=== PATIENT | female | born 1965 | race Caucasian/White ===

== ENCOUNTER → 2016-04-27 | Outpatient (CLI) | payer OTHER ==
--- NOTE | 2016-04-27 10:03 | US ---
EXAMINATION TYPE: US thyroid st tissue head/neck DATE OF EXAM: 04/27/2016 8:53 AM COMPARISON: prior 4-16 us CLINICAL HISTORY: follow up on known single left nodule; pt states prior fna of nodule as benign. GLAND SIZE: Right Lobe: 2.5 x 1.0 x 0.8cm Overall Parenchyma: somewhat heterogenous Left Lobe: 2.8 x 0.8 x 0.8cm Overall Parenchyma: somewhat heterogeneous Isthmus Thickness: 0.3cm NODULES RIGHT: # of nodules measured on right: 0 LEFT: # of nodules measured on left: 1 1. 1.1 x 0.4 x 0.8cm mixed solid nodule at the lower pole with well-defined margins. This nodule i s wider than tall and shows no intranodular vascularity. Prior size: 1.2 x 0.6 x 0.5 cm ISTHMUS: # of nodules measured in the isthmus: 0 IMPRESSION: Bilateral neck scanned, no abnormal lymphadenopathy noted. small lobes, single nodule SONOGRAPHIC PATTERNS, ESTIMATED MALIGNANCY RISK AND FNA GUIDANCE FOR THYROID NODULES Sonographic Pattern: Benign Ultrasound Features: Purely Cystic Nodules (No Solid Component) Estimated Risk Of Malignancy, %: <1 FNA Size Cutoff (Largest Dimension): No Biopsy Sonographic Pattern: Very Low Suspicion Ultrasound Features: Spongiform Or Partially Cystic Nodules Without Any Of The Sonographic Features Described In Low, Inte rmediate Or High Suspicion Patterns. Estimated Risk Of Malignancy, %: <3 FNA Size Cutoff (Largest Dimension): Recommend FNA At > 2cm Or Observation Without FNA Sonographic Pattern: Low Suspicion Ultrasound Features: Isoechoic Or Hyperechoic Solid Nodule, Or Partially Cystic Nodule With Eccentric Solid Areas, Without Microcalcification, Irregular Margin Or Ete, Or Taller Than Wide Shape. Estimated Risk Of Malignancy, %: 5-10 FNA Size Cutoff (Largest Dimension): Recommend FNA At > 1.5cm Sonographic Pattern: Intermediate Suspicion Ultrasound Features: Hypoechoic Solid Nodule With Smooth Margins Without Microcalcifications, Ete, Or Taller Than Wide Sha pe. Estimated Risk Of Malignancy, %: 10-20 FNA Size Cutoff (Largest Dimension): Recommend FNA At > 1cm Sonographic Pattern: High Suspicion Ultrasound Features: Solid Hypoechoic Nodule Or Solid Hypoechoic Component Of A Partially Cystic Nodule With One Or More O f The Following Features: Irregular Margins (Infiltrative, Microlobulated), Microcalcifications, Tall er Than Wide Shape, Rim Calcifications With Small Extrusive Soft Tissue Component, Evidence Of Ete Estimated Risk Of Malignancy, %: >70-90 FNA Size Cutoff (Largest Dimension): Recommend FNA At > 1cm
--- NOTE | 2016-04-27 10:50 | XR ---
EXAMINATION TYPE: XR bone survey complete DATE OF EXAM: 04/27/2016 9:38 AM COMPARISON: NONE TECHNIQUE: 17 views. HISTORY: 51-year-old female monoclonal gammopathy. FINDINGS: Bony calvarium : 2 views of the bony calvarium demonstrates no punched out lytic lesions. The mandibl e appears clear as well. CHEST: Clear lungs and normal heart size. No discrete rib lesion seen. The clavicles and scapula appe ar clear. Spine: Two views of the cervical, thoracic and lumbar spines are submitted. Reversal of the normal c ervical lordosis could be positional or due to muscle spasm. Mild spondylotic changes noted. For the thoracic spine, there are 12 rib bearing thoracic vertebral bodies and all pedicles are visualized. For the lumbar spine, there are 5 lumbar type vertebral bodies. Vertebral body heights are preserved and alignment is maintained in both the thoracic and lumbar spine. No suspicious bony lesion seen. PELVIS: Single view of the pelvis demonstrates bone island in the superior left ischial ramus, osteit is pubis, bone island in both femoral necks, and a tubal ligation clip on the left. No suspicious lyt ic lesion. UPPER EXTREMITIES: Two views of the upper extremities showed no suspicious punched out lytic lesion. LOWER EXTREMITIES: 2 views of the lower extremities show no suspicious punched out lytic lesion. IMPRESSION: No suspicious lytic lesion to suggest multiple myeloma.
== END | disposition home or self-care (01) ==
LOC: RADUSWWP 08:31
PROVIDERS: ATTEND Internal Medicine Endocrinology, Diabetes & Metabolism
DX: D47.2 Monoclonal gammopathy (principal); E03.9 Hypothyroidism, unspecified; E78.00 Pure hypercholesterolemia, unspecified; I80.9 Phlebitis and thrombophlebitis of unspecified site; E04.1 Nontoxic single thyroid nodule
CPT/HCPCS: 76536; 77075

== ENCOUNTER → 2016-05-22 | Outpatient (CLI) | payer OTHER ==
--- NOTE | 2016-05-22 12:29 | NM ---
EXAMINATION TYPE: NM bone 3 phase, distal lower extremities. DATE OF EXAM: 05/22/2016 11:51 AM COMPARISON: NONE HISTORY: 51-year-old female complex regional pain syndrome left foot Triple phase bone scintigraphy was performed the bilateral distal lower extremities following the inj ection of27.0 mCi Tc 99m MDP. Immediate flow (anterior) and pool (anterior and posterior) images fol lowed by 4 hours post injection images (multiple projections) were acquired. FINDINGS: The may be subtle increased flow activity to the left foot. There is patchy increased pool activity w ithin the left midfoot and hindfoot and focal increased tracer activity in the same areas on delayed images. IMPRESSION: Increased activity in the left midfoot and hindfoot on at least 2 phases and likely also subtly incre ased to the left foot on the early flow images. Complex regional pain syndrome involving the left rashard t is not excluded on the basis of this exam.
== END | disposition home or self-care (01) ==
LOC: RADNMMAIN 07:13
PROVIDERS: ATTEND Podiatrist
DX: G90.522 Complex regional pain syndrome I of left lower limb (principal)
CPT/HCPCS: 78315; A9503

== ENCOUNTER → 2016-06-19 | Outpatient (CLI) | payer OTHER ==
--- NOTE | 2016-06-19 09:00 | US ---
EXAMINATION TYPE: US carotid duplex BILAT DATE OF EXAM: 06/19/2016 8:29 AM COMPARISON: NONE CLINICAL HISTORY: R55 syncope. Dizziness, fainting spells EXAM MEASUREMENTS: RIGHT: Peak Systolic Velocity (PSV) cm/sec ----- Right CCA: 117.7 ----- Right ICA: 114.5 ----- Right ECA: 86.6 ICA/CCA ratio: 1.0 RIGHT: End Diastole cm/sec ----- Right CCA: 45.1 ----- Right ICA: 43.4 ----- Right ECA: 19.3 LEFT: Peak Systolic Velocity (PSV) cm/sec ----- Left CCA: 137.1 ----- Left ICA: 131.8 ----- Left ECA: 122.4 ICA/CCA ratio: 1.0 LEFT: End Diastole cm/sec ----- Left CCA: 41.8 ----- Left ICA: 38.1 ----- Left ECA: 29.2 VERTEBRALS (direction of flow): Right Vertebral: Antegrade Left Vertebral: Antegrade TECHNOLOGIST IMPRESSION: No plaque or significant stenosis seen. Left CCA thickened schuster. Slightly elevated Mid and Distal CCA. Slightly elevated bulb. Mild intimal hyperplasia seen at right carotid bulb. No significant focal plaque is seen in either ca rotid bulb. Increased peak systolic velocities in bilateral common carotid arteries raises concern fo r underlying hypertension. Clinical correlation advised. No significant increased velocity in either internal carotid artery is seen accounting for above. IMPRESSION: No hemolytic significant stenosis is seen in either internal carotid artery. Criteria for Assigning % of Stenosis / Diameter reduction (Estimation based on the indirect measurements of the internal carotid artery velocities (ICA PSV). 2. Less than 50% stenosis=ICA PSV < 125 cm/s: ratio < 2.0: ICA EDV<40 cm/s.
[2016-06-19 10:20] LABS: CH 30.8; CHCM 33.4; HCT 41.4 % (34.0-46.0); HDW 2.46; HGB 14.3 gm/dL (11.4-16.0); MCH 32.1 pg (25.0-35.0); MCHC 34.6 g/dL (31.0-37.0); MCV 92.7 fL (80.0-100.0); Mean Platelet Volume 8.5; RBC 4.46 m/uL (3.80-5.40); RDW 13.4 % (11.5-15.5); WBC 7.2 k/uL (3.8-10.6)
[2016-06-19 10:56] LABS: ALT 21 U/L (9-52); AST 23 U/L (14-36); Alkaline Phosphatase 56 U/L (38-126); Anion Gap 9 mmol/L; Blood Urea Nitrogen 12 mg/dL (7-17); Calcium 9.7 mg/dL (8.4-10.2); Carbon Dioxide 25 mmol/L (22-30); Chloride 105 mmol/L (98-107); Glucose 87 mg/dL (74-99); Non-African American GFR(MDRD) >60 (>60 ml/min/1.73 sqM); Potassium 4.6 mmol/L (3.5-5.1); Sodium 139 mmol/L (137-145); Total Bilirubin 0.7 mg/dL (0.2-1.3); Total Protein 7.1 g/dL (6.3-8.2)
[2016-06-19 14:18] LABS: Partial Thromboplastin Time 25.5 sec (22.0-30.0); Prothrombin Time 10.5 sec (9.0-12.0)
[2016-06-19 14:45] LABS: Nucleated Red Blood Cells 0 /100 WBC (0-0); Polychromasia Present; Total Cells Counted 100
--- NOTE | 2016-06-20 13:13 | MR ---
MRI of the brain with and without contrast HISTORY: Headaches. TECHNIQUE: T1-weighted sagittal, T2, FLAIR, and diffusion axial, postcontrast T1 axial and coronal vi ews of the brain are submitted. CONTRAST: 20 mL MultiHance FINDINGS: There is no evidence of acute ischemia. The ventricles, basal cisterns, and sulci overlying the co nvexities are consistent with the patient's age. There is no mass effect or enhancing mass. Craniocervical junction maintained. Partially empty sella turcica noted. No evidence of cerebellopont ine angle mass. There is a prominent CSF fluid collection anterior temporal fossa on the right measuring 1.1 x 1.7 cm compatible with a small arachnoid cyst. No adjacent edema. Changes of mild chronic sinusitis noted. WHITE MATTER: Single area of abnormal signal within the left parietal white matter measuring 2 mm is nonspecific an d of doubtful significance. IMPRESSION: 1. No acute intracranial process. 2. There is a prominent CSF fluid collection anterior temporal fossa on the right measuring 1.1 x 1.7 cm compatible with a small arachnoid cyst
== END | disposition home or self-care (01) ==
LOC: RADUSMAIN 07:54
PROVIDERS: ATTEND Psychiatry & Neurology Pain Medicine
DX: R55 Syncope and collapse (principal); R42 Dizziness and giddiness
CPT/HCPCS: 80053; 84443; 85027; 85610; 85730; 93880; 70553; A9577; 81003; 87086

== ENCOUNTER → 2016-07-12 | Outpatient (CLI) | payer OTHER ==
[2016-07-13 04:48] LABS: ANA w/Reflex to Titer POSITIVE (NEGATIVE)
[2016-07-19 16:08] LABS: Mis test requested (Blood) PMSCL Ab
== END ==
LOC: LABWHC1 09:40
PROVIDERS: ATTEND Psychiatry & Neurology Neurology
DX: G61.82 Multifocal motor neuropathy (principal)
CPT/HCPCS: 36415; 82550; 83516; 86038; 86039; 86200; 86225; 86235

== ENCOUNTER → 2016-07-17 | Outpatient (CLI) | payer OTHER ==
--- NOTE | 2016-07-17 19:03 | WWHP ---
DATE OF SERVICE: 07/17/2016 CHIEF COMPLAINT: The patient is here for her routine gynecologic exam. HPI: This is a 51-year-old, G6, P6, with a LMP of 06/25/2016. The patient is status post tubal ligation. She has been experiencing some episodes of feeling very warm and having sweats. She states her periods have been regular, every day. She has noticed occasional vaginal wetness, especially when she coughs or sneezes. She has also been having a difficult time starting urination, she sometimes has to sit on the toilet for about 5 minutes before she can get a stream going. PAST MEDICAL HISTORY: Hypothyroidism, depression, elevated cholesterol, left hand neuropathy. Dr. Dustin Dc is her primary care physician. MEDICATIONS: 1. Synthroid 137 mcg daily. 2. Lorazepam 0.5 mg p.r.n. 3. Gabapentin 800 mg q.i.d. 4. Vitamin D 2000 units daily. 5. Zoloft generic 150 mg daily. 6. Simvastatin 10 mg daily. 7. Albuterol inhaler p.r.n. 8. Nortriptyline 50 mg daily. 9. Prednisone 5 mg daily. 10. Vitamin B complex daily. ALLERGIES: No known drug allergies. PAST SURGICAL HISTORY: section with tubal ligation in 2005. Toe surgery in the past. Left carpal tunnel surgery in 2017. 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 FAMILY HISTORY: Unchanged from the 2016 H&P. SOCIAL HISTORY: She admits to smoking about 1/4 of a pack of cigarettes per day and has about one alcoholic drink per month. She denies drug use. 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 She has been since 1990. REVIEW OF SYSTEMS: She has lost about 20 pounds over the last year. She states she had lost more but has gained some back. She denies respiratory, cardiac, or GI problems. PHYSICAL EXAM: Blood pressure 132/87. Height 5 feet 5 inches. Weight 221 pounds. Temperature 99.1, pulse 94. This a well-developed, well-nourished, heavyset white female who is alert and oriented x3, in no acute distress. HEENT: Within normal limits. NECK: Supple without mass or thyromegaly. CHEST AND LUNGS: Clear to auscultation. HEART: Regular rate and rhythm. BREASTS: Without mass or discharge. She states she had some right breast tenderness recently, but this has improved. Breasts are currently nontender. Axillary exam is negative for adenopathy. BACK: Negative for CVA tenderness. ABDOMEN: Obese, soft, nontender, without palpable masses. PELVIC EXAM: Normal external genitalia. Cervix and vagina appear normal. There is no unusual discharge. No cervical motion tenderness. There is no evidence of prolapse. There is no significant cystocele with Valsalva. The uterus is approximately 8 week size and nontender. This is stable from her previous examination. There are no palpable adnexal masses or tenderness. Rectal exam is negative for mass or tenderness and is negative for occult blood. EXTREMITIES: Nontender. IMPRESSION: 1. 51-year-old female with normal gynecologic exam, who is status post tubal ligation. 2. Occasional inability to initiate her urinary stream without any physical findings at this time. PLAN: 1. Pap smear was deferred, since she had a normal one last year. 2. Self-breast examination was discussed. 3. Mammogram will be done today. 4. I have recommended that the patient attempt timed voids instead of waiting until she has a strong urge to void. I have also stressed importance of relaxing and spending enough time to initiate the urinary stream. If she continues to have issues with initiating the urinary flow, I have recommended that she see a urologist for further evaluation. 5. She will return in one year.
== END | disposition home or self-care (01) ==
LOC: WWCWWP 07:36
PROVIDERS: ATTEND Obstetrics & Gynecology

== ENCOUNTER → 2016-07-17 | Outpatient (CLI) | payer OTHER ==
--- NOTE | 2016-07-18 13:02 | MM ---
Reason for exam: screening (asymptomatic). Last mammogram was performed 1 year and 1 month ago. Physical Findings: A clinical breast exam by your physician is recommended on an annual basis and results should be correlated with mammographic findings. MG Screening Mammo w CAD Bilateral CC and MLO view(s) were taken. Prior study comparison: June 14, 2015, bilateral MG 3d screening mammo w/cad. There are scattered fibroglandular densities. No significant changes when compared with prior studies. ASSESSMENT: Benign, BI-RAD 2 RECOMMENDATION: Routine screening mammogram of both breasts in 1 year.
== END | disposition home or self-care (01) ==
LOC: RADMAMWWP 08:29
PROVIDERS: ATTEND Obstetrics & Gynecology
DX: Z12.31 Encounter for screening mammogram for malignant neoplasm of breast (principal)

== ENCOUNTER → 2016-10-10 | Outpatient (CLI) | payer OTHER | END | disposition home or self-care (01) | LOC: LABWHC1 12:02 | PROVIDERS: ATTEND Internal Medicine Endocrinology, Diabetes & Metabolism | DX: E03.8 Other specified hypothyroidism (principal) | CPT/HCPCS: 36415; 84443 ==

== ENCOUNTER 2016-11-15 18:16 | Emergency (ER) | payer OTHER ==
[2016-11-15] MEDS ORDERED: KETOROLAC 30 MG/ML 1 ML VIAL IM STA (18:57)
[2016-11-15] MEDS ORDERED: ORPHENADRINE 30 MG/ML 2 ML VIAL IM STA (18:57)
--- NOTE | 2016-11-15 19:11 | ED ---
Extremity Problem HPI - General Chief complaint: Extremity Problem,Nontraumatic Stated complaint: Right wrist pain Time Seen by Provider: 11/15/16 18:38 Source: patient, RN notes reviewed, old records reviewed Mode of arrival: ambulatory Limitations: no limitations - Related Data Home Medications Medication Instructions Recorded Confirmed Albuterol Sulfate [Proair Hfa] 2 puff INHALATION DIRECTED PRN 03/23/15 Cholecalciferol [Vitamin D3] 2,000 unit PO QID 03/23/15 03/02/16 Gabapentin [Neurontin] 800 mg PO QID 03/23/15 03/02/16 LORazepam [Ativan] 0.5 mg PO DIRECTED PRN 03/23/15 03/02/16 Levothyroxine Sodium [Synthroid] 125 mcg PO QAM 03/23/15 03/02/16 Nortriptyline [Pamelor] 25 mg PO HS 03/23/15 03/02/16 Sertraline [Zoloft] 150 mg PO QAM 03/23/15 03/02/16 Albuterol Sulfate [Proair Hfa] 1 - 2 puff INHALATION Q6HR PRN 02/27/16 03/02/16 Simvastatin [Zocor] 20 mg PO HS 02/27/16 03/02/16 busPIRone HCl [Buspar] 5 mg PO BID 02/27/16 03/02/16 Previous Rx's Medication Instructions Recorded Cyclobenzaprine [Flexeril] 10 mg PO TID #15 tab 11/15/16 Dexamethasone 0.75 mg PO DAILY #12 tab 11/15/16 HYDROcodone/APAP 5-325MG [Bethany 1 tab PO Q6HR PRN #15 tab 11/15/16 5-325] Ibuprofen [Motrin] 600 mg PO Q8HR PRN #30 tab 11/15/16 Allergies Allergy/AdvReac Type Severity Reaction Status Date / Time No Known Allergies Allergy Verified 11/15/16 18:23 Review of Systems ROS Statement: Those systems with pertinent positive or pertinent negative responses have been documented in the HPI. ROS Other: All systems not noted in ROS Statement are negative. Past Medical History Past Medical History: Neurologic Disorder, Thyroid Disorder Additional Past Medical History / Comment(s): STATES CURRENT FX OF LEFT 4TH AND 5TH TOE, WEARING SURGICAL BOOT, STATES FREQUENT BRONCHITIS, NEUROPATHY LEFT ARM , CONTRACTURES FINGERS (THORACIC OUTLET SYNDROME), back pain History of Any Multi-Drug Resistant Organisms: None Reported Past Surgical History: Section, Tubal Ligation Additional Past Surgical History / Comment(s): oral, carpal tunnel Past Anesthesia/Blood Transfusion Reactions: No Reported Reaction Past Psychological History: Anxiety, Depression Smoking Status: Current every day smoker Past Alcohol Use History: None Reported Past Drug Use History: None Reported - Past Family History Father Additional Family Medical History / Comment(s): PERIPHERAL VASCULAR DX General Exam Limitations: no limitations General appearance: alert, in no apparent distress Head exam: Present: atraumatic, normocephalic, normal inspection Eye exam: Present: normal appearance, PERRL, EOMI. Absent: scleral icterus, conjunctival injection, periorbital swelling ENT exam: Present: normal exam, mucous membranes moist Neck exam: Present: normal inspection. Absent: tenderness, meningismus, lymphadenopathy Respiratory exam: Present: normal lung sounds bilaterally. Absent: respiratory distress, wheezes, rales, rhonchi, stridor Cardiovascular Exam: Present: regular rate, normal rhythm, normal heart sounds. Absent: systolic murmur, diastolic murmur, rubs, gallop, clicks GI/Abdominal exam: Present: soft, normal bowel sounds. Absent: distended, tenderness, guarding, rebound, rigid Extremities exam: Present: normal inspection, full ROM, normal capillary refill. Absent: tenderness, pedal edema, joint swelling, calf tenderness Back exam: Present: normal inspection Neurological exam: Present: alert, oriented X3, CN II-XII intact Psychiatric exam: Present: normal affect, normal mood Skin exam: Present: warm, dry, intact, normal color. Absent: rash Course Vital Signs 11/15/16 11/15/16 18:21 19:58 Temperature 98.1 F Pulse Rate 100 78 Respiratory 20 18 Rate Blood Pressure 148/88 140/78 O2 Sat by Pulse 95 98 Oximetry Disposition Clinical Impression: Carpal tunnel syndrome of right wrist, Cervical radiculopathy Disposition: HOME SELF-CARE Condition: Good Instructions: Paresthesia (ED) Additional Instructions: Patient advised to rest and apply ice to the hand. Follow-up with her primary care provider and specialist within the next few days. Take the medications as he department if any alarming signs or symptoms occur. Prescriptions: Cyclobenzaprine [Flexeril] 10 mg PO TID #15 tab Dexamethasone 0.75 mg PO DAILY #12 tab HYDROcodone/APAP 5-325MG [Bethany 5-325] 1 tab PO Q6HR PRN #15 tab PRN Reason: Pain Ibuprofen [Motrin] 600 mg PO Q8HR PRN #30 tab PRN Reason: Pain Referrals: Ana Rodríguez MD [Primary Care Provider] - 1-2 days Time of Disposition: 20:32
[2016-11-15 20:58] VITALS: BP 135/79; PULSE 74; RESP 16; TEMP 97.9
--- NOTE | 2016-11-15 21:33 | XR ---
EXAMINATION TYPE: XR wrist complete RT DATE OF EXAM: 11/15/2016 COMPARISON: NONE HISTORY: Pain and swelling TECHNIQUE: 4 views FINDINGS: I see no fracture nor dislocation. Joint spaces are normal. Soft tissues appear normal. IMPRESSION: Negative right wrist exam.
--- NOTE | 2016-11-15 21:34 | XR ---
EXAMINATION TYPE: XR hand complete RT DATE OF EXAM: 11/15/2016 COMPARISON: NONE HISTORY: Pain and swelling TECHNIQUE: 3 views FINDINGS: I see no fracture nor dislocation. Metacarpals are intact. Joint spaces appear normal. IMPRESSION: Negative right hand exam.
--- NOTE | 2016-11-15 21:34 | XR ---
EXAMINATION TYPE: XR cervical spine limited DATE OF EXAM: 11/15/2016 COMPARISON: NONE HISTORY: Pain TECHNIQUE: 4 views FINDINGS: There is mild straightening of the vertebra. Disc spaces are fairly normal. Posterior eleme nts appear intact. I see no fracture. Atlantoaxial facet joint is normal. There are no cervical ribs. IMPRESSION: Mild straightening. No fracture seen. This could relate to mild spasm.
== END 2016-11-15 20:57 | disposition home or self-care (01) ==
LOC: EC 18:16
DX: G56.01 Carpal tunnel syndrome, right upper limb (principal); M54.12 Radiculopathy, cervical region; E07.9 Disorder of thyroid, unspecified; G62.9 Polyneuropathy, unspecified; F32.9 Major depressive disorder, single episode, unspecified; F41.9 Anxiety disorder, unspecified; F17.200 Nicotine dependence, unspecified, uncomplicated; Z79.899 Other long term (current) drug therapy
CPT/HCPCS: 72040; 73110; 73130; 99284; 96372 ×2; J2360; J1885

== ENCOUNTER → 2016-11-20 | Outpatient (CLI) | payer OTHER | END | disposition home or self-care (01) | LOC: CPPFTMAIN 11:38 | PROVIDERS: ATTEND Family Medicine | DX: R06.00 Dyspnea, unspecified (principal) | CPT/HCPCS: 94060; 94726; 94729 ==

== ENCOUNTER → 2017-03-14 | Outpatient (CLI) | payer OTHER ==
--- NOTE | 2017-03-14 17:55 | US ---
EXAMINATION TYPE: US thyroid st tissue head/neck DATE OF EXAM: 03/14/2017 COMPARISON: NONE CLINICAL HISTORY: E04.1 thyroid nodule. GLAND SIZE: Right Lobe: 2.2 x 1.6 x 1.0 cm Overall Parenchyma: heterogenous Left Lobe: 3.5 x 1.0 x 1.2 cm Overall Parenchyma: heterogeneous Isthmus Thickness: 0.4 cm NODULES RIGHT: # of nodules measured on right: 1 1. 0.8 X 0.7 x 0.5 cm echogenic solid nodule at the mid pole with well-defined margins; . This no dule is round and shows intranodular vascularity. Prior size: no prior LEFT: # of nodules measured on left: 1 1. 0.8 X 0.2 x 0.8 cm mixed nodule at the lower pole with well-defined margins; . This nodule is w ider than tall and shows no intranodular vascularity. Prior size: 1.1 x .08 x 0.4 cm ISTHMUS: # of nodules measured in the isthmus: 0 Bilateral neck scanned, no evidence of lymphadenopathy. IMPRESSION: Small bilateral findings. No dominant thyroid mass. I have a low suspicion of malignancy. Isoechoic solid 8 x 6 mm right thyroid nodule.
== END | disposition home or self-care (01) ==
LOC: RADUSWWP 16:49
PROVIDERS: ATTEND Internal Medicine Endocrinology, Diabetes & Metabolism
DX: E04.1 Nontoxic single thyroid nodule (principal)
CPT/HCPCS: 76536; 84443

== ENCOUNTER → 2017-04-09 | Outpatient (CLI) | payer OTHER ==
--- NOTE | 2017-04-09 10:24 | FL ---
EXAMINATION TYPE: FL barium swallow DATE OF EXAM: 04/09/2017 COMPARISON: NONE HISTORY: Dysphasia food getting stuck in upper esophagus TECHNIQUE: A double contrast UGI study is performed. FINDINGS: Esophagus dilates to normal caliber has normal contour to the gastroesophageal junction. Ga stroesophageal junction opens to normal caliber. During the examination is small sliding type hiatal hernia was identified. Couple of tertiary contractions are evident compatible with mild presbyesophag us. Overhead radiograph appear unremarkable. There is complete stripping of the esophageal bolus in t he horizontal drinking position. 15 images obtained. 49 seconds fluoroscopy time. IMPRESSIONS: 1. Minimal presbyesophagus. No stenosis or obstruction is evident.
== END | disposition home or self-care (01) ==
LOC: RADFLMAIN 09:24
PROVIDERS: ATTEND Otolaryngology
DX: K22.8 Other specified diseases of esophagus (principal); R13.10 Dysphagia, unspecified; E06.9 Thyroiditis, unspecified
CPT/HCPCS: 36415; 74220; 86376

== ENCOUNTER 2017-04-22 14:26 | Emergency (ER) | payer OTHER ==
[2017-04-22] MEDS ORDERED: KETOROLAC 30 MG/ML 1 ML VIAL IVP STA (16:59)
[2017-04-22] MEDS ORDERED: HYDROcodone/APAP 10-325MG 1 EACH TAB PO ONE (17:00)
[2017-04-22] MEDS ORDERED: methylPREDNISolone SOD SUCCI 125 MG/2 ML VIAL IV STA (17:00)
[2017-04-22 17:49] LABS: Basophils # (A) 0.1 k/uL (0-0.2); Basophils % (A) 1 %; Eosinophils # (A) 0.1 k/uL (0-0.7); Eosinophils % (A) 1 %; HCT 41.8 % (34.0-46.0); HGB 13.4 gm/dL (11.4-16.0); Lymphocytes # (A) 2.8 k/uL (1.0-4.8); Lymphocytes % (A) 27 %; MCV 93.8 fL (80.0-100.0); Mean Platelet Volume 7.2; Monocytes # (A) 0.6 k/uL (0-1.0); Monocytes % (A) 5 %; Neutrophils # (A) 6.5 k/uL (1.3-7.7); Neutrophils % (A) 63 %; Platelet Count 385 k/uL (150-450); RBC 4.45 m/uL (3.80-5.40); RDW 14.2 % (11.5-15.5); WBC 10.3 k/uL (3.8-10.6)
[2017-04-22 17:58] LABS: Anion Gap 13 mmol/L; Blood Urea Nitrogen 18 mg/dL (7-17); Calcium 10.1 mg/dL (8.4-10.2); Carbon Dioxide 28 mmol/L (22-30); Chloride 98 mmol/L (98-107); Glucose 101 mg/dL (74-99); Potassium 3.9 mmol/L (3.5-5.1); Sodium 139 mmol/L (137-145)
--- NOTE | 2017-04-22 18:02 | US ---
EXAMINATION TYPE: US extremity nonvasculr ltd LT DATE OF EXAM: 04/22/2017 COMPARISON: NONE CLINICAL HISTORY: Pain. Pain in left upper arm under incision from nerve biopsy surgery on 04/04/2017 No abnormalities seen at this time. Vessels appear patent in area. No cystic or solid mass in the pat ient's area stated pain. IMPRESSION: No suspicious abnormality, cystic, or solid mass in the patient's stated area of pain at the recent site of surgery.
--- NOTE | 2017-04-22 18:56 | ED ---
Wound/Laceration HPI - General Chief Complaint: Wound/Laceration Stated Complaint: Post Op /poss infection/Stiches Time Seen by Provider: 04/22/17 16:25 Source: patient, RN notes reviewed, old records reviewed Mode of arrival: ambulatory Limitations: no limitations - History of Present Illness Initial Comments: 52 year old female with history of left upper arm nerve biopsy for neuropathy at [facility] on 04/04/2017. PAtient reports she had this surgery to evaluate if there are other causes for her neuropathy in bilateral hands. She states she follows with Dr. Krishnan. Patient states that she had the surgery and it went well, she states that she has had increased pain from the area of the incision site to the elbow, past the inscision site. She reports she was sent home with pain medication, but it is not helping at this time. She reports that she has noticed some drainage from the incision site when she applies ointment to it. She denies fevers or chills. She is also concerned because she noted that she appears flushed while in ED. - Related Data Home Medications Medication Instructions Recorded Confirmed Cholecalciferol [Vitamin D3] 2,000 unit PO QID 03/23/15 04/22/17 Gabapentin [Neurontin] 800 mg PO QID 03/23/15 04/22/17 Nortriptyline [Pamelor] 75 mg PO HS 03/23/15 04/22/17 Sertraline [Zoloft] 150 mg PO DAILY 03/23/15 04/22/17 Fluticasone Nasal [place] [Flonase 2 spr EA NOSTRIL DAILY 04/22/17 04/22/17 Nasal [place]] Levothyroxine Sodium [Synthroid] 137 mcg PO DAILY 04/22/17 04/22/17 Montelukast [Singulair] 10 mg PO DAILY 04/22/17 04/22/17 Simvastatin 40 mg PO HS 04/22/17 04/22/17 Tiotropium Br/Olodaterol HCl 2 spray INHALATION RT-DAILY 04/22/17 04/22/17 [Stiolto Respimat Inhal [place]] Varenicline [Chantix] 1 mg PO BID 04/22/17 04/22/17 busPIRone HCL 10 mg PO TID 04/22/17 04/22/17 Previous Rx's Medication Instructions Recorded Cephalexin [Keflex] 500 mg PO Q8HR #21 cap 04/22/17 HYDROcodone/APAP 5-325MG [[place] 1 tab PO Q6HR PRN #12 tab 04/22/17 5-325] Allergies Allergy/AdvReac Type Severity Reaction Status Date / Time amoxicillin AdvReac Severe YEAST Verified 04/22/17 16:28 INFECTION Review of Systems ROS Statement: Those systems with pertinent positive or pertinent negative responses have been documented in the HPI. ROS Other: All systems not noted in ROS Statement are negative. Past Medical History Past Medical History: Neurologic Disorder, Thyroid Disorder Additional Past Medical History / Comment(s): STATES CURRENT FX OF LEFT 4TH AND 5TH TOE, WEARING SURGICAL BOOT, STATES FREQUENT BRONCHITIS, NEUROPATHY LEFT ARM , CONTRACTURES FINGERS (THORACIC OUTLET SYNDROME), back pain History of Any Multi-Drug Resistant Organisms: None Reported Past Surgical History: Section, Tubal Ligation Additional Past Surgical History / Comment(s): oral, carpal tunnel Past Anesthesia/Blood Transfusion Reactions: No Reported Reaction Past Psychological History: Anxiety, Depression Smoking Status: Former smoker Past Alcohol Use History: None Reported Past Drug Use History: None Reported - Past Family History Father Additional Family Medical History / Comment(s): PERIPHERAL VASCULAR DX General Exam - General Exam Comments Initial Comments: This patient is 52 year old female, no distress. Limitations: no limitations General appearance: alert Head exam: Present: atraumatic, normocephalic, normal inspection Eye exam: Present: normal appearance, PERRL, EOMI. Absent: scleral icterus, conjunctival injection, periorbital swelling ENT exam: Present: normal exam, mucous membranes moist Respiratory exam: Present: normal lung sounds bilaterally. Absent: respiratory distress, wheezes, rales, rhonchi, stridor Cardiovascular Exam: Present: regular rate, normal rhythm, normal heart sounds. Absent: systolic murmur, diastolic murmur, rubs, gallop, clicks Left Shoulder Exam: Present: normal inspection, full ROM Upper Arm exam: Present: full ROM, tenderness. Absent: normal inspection (7cm incision over mid upper anterior arm. PAtient has minimal erythema over incision site over some areas. No active purulent drainage. She reports paresthesias and sensitive to the skin distal to the area. No significant swelling noted. ), swelling, abrasion Elbow exam: Present: normal inspection, full ROM Forearm Wrist exam: Present: normal inspection, full ROM Vascular: Present: vascular compromise Back exam: Present: normal inspection Neurological exam: Present: alert, oriented X3, CN II-XII intact Psychiatric exam: Present: normal affect, normal mood Skin exam: Present: warm, dry, intact, normal color. Absent: rash Course Vital Signs 04/22/17 04/22/17 14:44 19:25 Temperature 99.4 F 98 F Pulse Rate 100 88 Respiratory 20 18 Rate Blood Pressure 152/98 146/81 O2 Sat by Pulse 98 98 Oximetry Medical Decision Making - Medical Decision Making 52 year old female with history of left upper arm nerve biopsy for neuropathy at [facility] on 04/04/2017. PAtient reports she had this surgery to evaluate if there are other causes for her neuropathy in bilateral hands. She states she follows with Dr. Krishnan. Patient states that she had the surgery and it went well, she states that she has had increased pain from the area of the incision site to the elbow, past the inscision site. PAtient has miminal erythema over site, no palpable abscess or diffuse erythema or drainage. PAtient WBC is within normal limits. Patient US shws no abscess or clots near area. Discussed likely origen of nerve pain, she was given IV solumedrol and pain medication. Patient will be discharged with pain medication, as well as follow up with neurology. Discussed if erythema worsens to start to take antibiotic. REturn parameter discussed. - Lab Data Result diagrams: 04/22/17 17:26 04/22/17 17:26 Lab Results 04/22/17 04/22/17 Range/Units 17:26 17:26 WBC 10.3 (3.8-10.6) k/uL RBC 4.45 (3.80-5.40) m/uL Hgb 13.4 (11.4-16.0) gm/dL Hct 41.8 (34.0-46.0) % MCV 93.8 (80.0-100.0) fL MCH 30.0 (25.0-35.0) pg MCHC 32.0 (31.0-37.0) g/dL RDW 14.2 (11.5-15.5) % Plt Count 385 (150-450) k/uL Neutrophils % 63 % Lymphocytes % 27 % Monocytes % 5 % Eosinophils % 1 % Basophils % 1 % Neutrophils # 6.5 (1.3-7.7) k/uL Lymphocytes # 2.8 (1.0-4.8) k/uL Monocytes # 0.6 (0-1.0) k/uL Eosinophils # 0.1 (0-0.7) k/uL Basophils # 0.1 (0-0.2) k/uL Sodium 139 (137-145) mmol/L Potassium 3.9 (3.5-5.1) mmol/L Chloride 98 (98-107) mmol/L Carbon Dioxide 28 (22-30) mmol/L Anion Gap 13 mmol/L BUN 18 H (7-17) mg/dL Creatinine 0.84 (0.52-1.04) mg/dL Est GFR (MDRD) Af Amer >60 (>60 ml/min/1.73 sqM) Est GFR (MDRD) Non-Af >60 (>60 ml/min/1.73 sqM) Glucose 101 H (74-99) mg/dL Calcium 10.1 (8.4-10.2) mg/dL - Radiology Data Radiology results: report reviewed US shows no abnormalities near patient incision site, no abscess, or clot. Disposition Clinical Impression: Left arm pain, Pain at surgical incision Disposition: HOME SELF-CARE Condition: Good Instructions: Acute Wound Care (ED) Additional Instructions: Patient advised to follow-up with primary care provider. If the area of erythema starts to become worse around the incision site started to take the prescribed antibiotic. Return to emergency department if any alarming signs or symptoms occur. Prescriptions: Cephalexin [Keflex] 500 mg PO Q8HR #21 cap HYDROcodone/APAP 5-325MG [[place] 5-325] 1 tab PO Q6HR PRN #12 tab PRN Reason: Pain Referrals: Ana Rodríguez MD [Primary Care Provider] - 1-2 days Time of Disposition: 18:53
[2017-04-22 19:28] VITALS: BP 146/81; PULSE 88; RESP 18; TEMP 98
== END 2017-04-22 19:28 | disposition home or self-care (01) ==
LOC: EC 14:26
DX: M79.602 Pain in left arm (principal); G89.18 Other acute postprocedural pain; E07.9 Disorder of thyroid, unspecified; G62.9 Polyneuropathy, unspecified; F41.9 Anxiety disorder, unspecified; F32.9 Major depressive disorder, single episode, unspecified; Z98.890 Other specified postprocedural states; Z79.51 Long term (current) use of inhaled steroids; Z79.899 Other long term (current) drug therapy
CPT/HCPCS: 36415; 80048; 85025; 76882; 99284; 96374; 96375; J2930; J1885

== ENCOUNTER 2017-08-22 13:21 | Day surgery (SDC) | payer OTHER ==
[2017-08-21 14:31] VITALS: BMI 41.5
[2017-08-22 13:45] VITALS: RESP 18; TEMP 98.2
[2017-08-22] MEDS ORDERED: LIDOCAINE 2% INJ 20 MG/ML SQ ONE (14:17)
[2017-08-22 14:25] LABS: Calcium 9.9 mg/dL (8.4-10.2); Potassium 4.2 mmol/L (3.5-5.1)
[2017-08-22 14:28] LABS: Basophils % (A) 0 %; Eosinophils # (A) 0.1 k/uL (0-0.7); Eosinophils % (A) 1 %; HCT 39.3 % (34.0-46.0); HGB 13.1 gm/dL (11.4-16.0); Lymphocytes # (A) 1.4 k/uL (1.0-4.8); Lymphocytes % (A) 24 %; MCH 29.8 pg (25.0-35.0); MCHC 33.2 g/dL (31.0-37.0); MCV 89.6 fL (80.0-100.0); Mean Platelet Volume 7.8; Monocytes # (A) 0.4 k/uL (0-1.0); Monocytes % (A) 8 %; Neutrophils # (A) 3.5 k/uL (1.3-7.7); Neutrophils % (A) 64 %; Platelet Count 326 k/uL (150-450); RBC 4.38 m/uL (3.80-5.40); RDW 13.7 % (11.5-15.5); WBC 5.6 k/uL (3.8-10.6)
[2017-08-22 14:35] VITALS: BP 118/68; PULSE 90
--- NOTE | 2017-09-18 15:08 | IR ---
PICC LINE PLACEMENT: HISTORY: Infection requiring long-term antibiotic therapy PROCEDURE: Ultrasound and fluoroscopic guidance of PICC line placement. COMPLICATIONS: None ANESTHESIA: 1. 1% Lidocaine locally. FINDINGS/TECHNIQUE: The procedure was explained to the patient. The risks, complications, benefits and alternatives were discussed and any questions were answered. Informed consent was obtained. The patient was placed supine on the fluoroscopic table and prepped and draped in the usual sterile [facility] ion. Utilizing a 21 gauge needle and sonographic and fluoroscopic guidance, access in the vein was achieved and there is placement of a 0.018 guidewire. The vein is patent. A 4-F sheath was placed o mallorie the guidewire. The guidewire and dilator were removed and a 4-F. PICC line was placed through th e sheath with the tip at the level of the SVC. The sheath was removed, the catheter was flushed and sutured into position. The patient was stable throughout the procedure and remained stable upon disc harge from the Department of Radiology. The vein puncture was patent under ultrasound. A oliver scale image was obtained to document patency of the vein punctured. All elements of the maximal barrier technique were utilized. FLUOROSCOPY TIME: 0.2 minutes, one image submitted IMPRESSION: Successful PICC line placement under ultrasound and fluoroscopic guidance.
== END 2017-08-22 14:44 | disposition home or self-care (01) ==
LOC: CATHCVL 13:21
PROVIDERS: ATTEND Radiology Diagnostic Radiology
DX: G61.82 Multifocal motor neuropathy (principal); E78.5 Hyperlipidemia, unspecified; E03.9 Hypothyroidism, unspecified; F32.9 Major depressive disorder, single episode, unspecified; F17.200 Nicotine dependence, unspecified, uncomplicated; Z79.890 Hormone replacement therapy; Z79.51 Long term (current) use of inhaled steroids; Z79.899 Other long term (current) drug therapy
CPT/HCPCS: 36569; 76937; 77001; 80048; 85025; C1751; C1769; J2001

== ENCOUNTER → 2017-08-30 | Outpatient (CLI) | payer OTHER ==
--- NOTE | 2017-08-30 09:12 | US ---
EXAMINATION TYPE: US thyroid st tissue head/neck DATE OF EXAM: 08/30/2017 COMPARISON: US CLINICAL HISTORY: E04.1 nontoxic single thyroid nodule. GLAND SIZE: Right Lobe: 3.6 x 1.2 x 1.0 cm Overall Parenchyma: heterogenous Left Lobe: 3.9 x 1.0 x 1.2 cm Overall Parenchyma: heterogeneous Isthmus Thickness: 0.2 cm NODULES RIGHT: # of nodules measured on right: 0 Unable to reproduce nodule seen on prior exam, this nodule was not seen on exam performed 04/27/2016. LEFT: # of nodules measured on left: 1 1. 1.0 X 0.4 x 0.8 cm hypoechoic cystic nodule at the lower pole with well-defined margins; . This nodule is wider than tall and shows no intranodular vascularity. Prior size: 0.8 x 0.2 x 0.8 cm ISTHMUS: # of nodules measured in the isthmus: 0 Bilateral neck scanned, no evidence of lymphadenopathy. two nonenlarged morphologically unremarkable nodes noted right lateral neck. Gland is diffusely heter ogeneous bilaterally. IMPRESSION: Minimal enlargement of the 1.0 cm left thyroid cystic appearing nodule favored to be benign and nonvi sualization of the previously seen right thyroid nodule in an overall diffusely heterogenous nonenlar ged thyroid gland. Continued surveillance is recommended.
== END | disposition home or self-care (01) ==
LOC: RADUSWWP 06:55
PROVIDERS: ATTEND Internal Medicine Endocrinology, Diabetes & Metabolism
DX: Z53.9 Procedure and treatment not carried out, unspecified reason (principal)
CPT/HCPCS: 76536; 84443; 86376

== ENCOUNTER → 2017-08-30 | Outpatient (CLI) | payer OTHER ==
--- NOTE | 2017-08-30 08:22 | US ---
EXAMINATION TYPE: US abdomen complete DATE OF EXAM: 08/30/2017 COMPARISON: NONE CLINICAL HISTORY: R39.1 Hesitancy of micturition. Abdominal pain EXAM MEASUREMENTS: Liver Length: 16.9 cm Gallbladder Wall: 0.2 cm CBD: 0.3 cm Spleen: 8.9 cm Right Kidney: 11.0 x 4.5 x 4.5 cm Left Kidney: 9.7 x 5.6 x 6.1 cm technically difficult exam due to body habitus and bowel gas. Pancreas: not well visualized due to bowel gas Liver: difficult to penetrate due to diffuse hyperechogenicity. This most commonly relates to hepati c steatosis and limits evaluation for underlying hepatic masses. Gallbladder: solitary mobile stone with shadowing Evidence for sonographic Roberts's sign: No CBD: wnl Spleen: wnl Right Kidney: No hydronephrosis or masses seen Left Kidney: No hydronephrosis or masses seen Upper IVC: wnl Abd Aorta: wnl The intrahepatic portion of the IVC and proximal abdominal aorta are within normal limits. Common bi le duct is unremarkable. The visualized portions of the pancreas are homogenous. The spleen is unre markable. Kidneys are symmetric and free of hydronephrosis. No renal lesions are seen. IMPRESSION: 1. Cholelithiasis without sonographic evidence of acute cholecystitis. 2. Hyperechoic echogenicity of the hepatic parenchyma most commonly related to underlying hepatic tavares atosis. 3. Suboptimal visualization of the pancreas due to overlying bowel gas.
--- NOTE | 2017-08-30 09:11 | US ---
EXAMINATION TYPE: US pelvic complete DATE OF EXAM: 08/30/2017 COMPARISON: NONE CLINICAL HISTORY: R39.1 Hesitancy of micturition. TECHNIQUE: Transabdominal (TA). Date of LMP: 08/19/2017 EXAM MEASUREMENTS: Uterus: 11.2 x 5.6 x 6.8 cm Endometrial Stripe: 0.8 cm Right Ovary: 2.7 x 2.2 x 3.3 cm Left Ovary: 3.1 x 2.2 x 3.0 cm 1. Uterus: Anteverted measures 11.2 cm 2. Endometrium: wnl 3. Right Ovary: Slightly atrophic 4. Left Ovary: Slightly atrophic 5. Bilateral Adnexa: wnl 6. Posterior cul-de-sac: no free fluid IMPRESSION: Unremarkable uterus and endometrial thickness. Ovaries are slightly atrophic.
== END | disposition home or self-care (01) ==
LOC: RADUSWWP 06:52
PROVIDERS: ATTEND Family Medicine
DX: K80.20 Calculus of gallbladder without cholecystitis without obstruction (principal); R39.11 Hesitancy of micturition
CPT/HCPCS: 76536; 76700; 76856; 84443; 86376

== ENCOUNTER 2017-08-31 13:51 | Emergency (ER) | payer OTHER ==
[2017-08-31 13:59] VITALS: BP 131/75; PULSE 98; RESP 20; TEMP 98
--- NOTE | 2017-08-31 14:45 | ED ---
General Adult HPI - General Chief complaint: Recheck/Abnormal Lab/Rx Stated complaint: PICC line discomfort Time Seen by Provider: 08/31/17 14:21 Source: patient, RN notes reviewed Mode of arrival: ambulatory Limitations: no limitations - History of Present Illness Initial comments: Patient is a pleasant 52-year-old female presenting to the emergency department with concerns for PICC line. Patient states lying was placed approximately one week ago. PICC line was placed for patient to receive IgG infusions. Patient is not scheduled for Saturday. This is for presumptive neuromuscular disease. Patient has had some irritation of the PICC line site over the past day or 2. No fevers. Patient questions if there was some pus coming out of it. There is some redness. Patient has also been scratching near the area with some redness there as well. - Related Data Home Medications Medication Instructions Recorded Confirmed Cholecalciferol [Vitamin D3] 2,000 unit PO QID 03/23/15 08/22/17 Gabapentin [Neurontin] 800 mg PO QID 03/23/15 08/22/17 Sertraline [Zoloft] 150 mg PO DAILY 03/23/15 08/22/17 Fluticasone Nasal [place] [Flonase 2 spr EA NOSTRIL DAILY 04/22/17 08/22/17 Nasal [place]] Levothyroxine Sodium [Synthroid] 137 mcg PO DAILY 04/22/17 08/22/17 Montelukast [Singulair] 10 mg PO HS 04/22/17 08/22/17 Simvastatin 40 mg PO HS 04/22/17 08/22/17 Tiotropium Br/Olodaterol HCl 2 spray INHALATION DAILY 04/22/17 08/22/17 [Stiolto Respimat Inhal [place]] busPIRone HCL 10 mg PO TID 04/22/17 08/22/17 [place] 1 applicate IV TU 08/21/17 08/22/17 Nortriptyline HCl 75 mg PO HS 08/21/17 08/22/17 Previous Rx's Medication Instructions Recorded HYDROcodone/APAP 5-325MG [[place] 1 tab PO Q6HR PRN #12 tab 04/22/17 5-325] Cephalexin [Keflex] 500 mg PO QID #40 cap 08/31/17 Allergies Allergy/AdvReac Type Severity Reaction Status Date / Time amoxicillin AdvReac Severe YEAST Verified 08/31/17 13:59 INFECTION Review of Systems ROS Statement: Those systems with pertinent positive or pertinent negative responses have been documented in the HPI. ROS Other: All systems not noted in ROS Statement are negative. 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), seasonal allergies, History of Any Multi-Drug Resistant Organisms: None Reported Past Surgical History: Section, Orthopedic Surgery, Tubal Ligation Additional Past Surgical History / Comment(s): oral surgery, left carpal tunnel , left foot bone removed left 5th toe-screw in left 4th toe, nerve biopsy left arm proximal sensory nerve 03/2017 Past Anesthesia/Blood Transfusion Reactions: No Reported Reaction Past Psychological History: Anxiety, Depression Smoking Status: Former smoker Past Alcohol Use History: Occasional Past Drug Use History: None Reported - Past Family History Mother Family Medical History: No Reported History Father Additional Family Medical History / Comment(s): PERIPHERAL VASCULAR DX General Exam Limitations: no limitations General appearance: alert Head exam: Present: atraumatic Respiratory exam: Present: normal lung sounds bilaterally Cardiovascular Exam: Present: regular rate, normal rhythm GI/Abdominal exam: Present: soft. Absent: tenderness Extremities exam: Present: other (Left arm PICC line. There is minimal amount of white discharge/abnormal tissue at insertion site. In addition insertion site has approximately 3 cm diameter area of erythema that is mildly tender and raised.) Neurological exam: Present: alert Psychiatric exam: Present: normal affect, normal mood Skin exam: Present: rash Course Vital Signs 08/31/17 13:57 Temperature 98.0 F Pulse Rate 98 Respiratory 20 Rate Blood Pressure 131/75 O2 Sat by Pulse 99 Oximetry Procedures - Procedures Initial comment: PICC line removed using standard withdrawal technique. No complications. Gauze placed over the insertion site. Medical Decision Making - Medical Decision Making There is concern for early infection at the PICC line site. Patient does not need infusion again until Saturday and therefore there will be time for her doctor to set up a new PICC line. PICC line was removed without difficulty. Tip was sent to lab for culture. In addition culture was taken from the site prior to PICC line removal. Disposition Clinical Impression: PICC line infection Disposition: HOME SELF-CARE Condition: Stable Instructions: Peripherally Inserted Central Catheters and Midline Catheters (ED ), Acute Wound Care (ED) Additional Instructions: [id number] Benadryl or Claritin if needed for itching. Please follow-up with your primary care physician Saturday morning for further evaluation as well as scheduling possible replacement of PICC line. Please also have your doctor review culture results. Return for fevers, increased redness, pain, swelling, worsening symptoms or other concerns. Prescriptions: Cephalexin [Keflex] 500 mg PO QID #40 cap Is patient prescribed a controlled substance at d/c from ED?: No Referrals: Ana Rodríguez MD [Primary Care Provider] - 1-2 days Time of Disposition: 14:45
== END 2017-08-31 14:55 | disposition home or self-care (01) ==
LOC: EC 13:51
DX: T80.212A Local infection due to central venous catheter, initial encounter (principal); J45.909 Unspecified asthma, uncomplicated; E78.5 Hyperlipidemia, unspecified; E07.9 Disorder of thyroid, unspecified; F41.9 Anxiety disorder, unspecified; F32.9 Major depressive disorder, single episode, unspecified; Z87.891 Personal history of nicotine dependence; Z79.899 Other long term (current) drug therapy; Z79.51 Long term (current) use of inhaled steroids; Z88.0 Allergy status to penicillin; Y84.0 Cardiac catheterization as the cause of abnormal reaction of the patient, or of later complication, without mention of misadventure at the time of the procedure
CPT/HCPCS: 87070; 87205; 99283

== ENCOUNTER 2017-09-06 10:56 | Day surgery (SDC) | payer OTHER ==
[2017-09-06 11:30] VITALS: BP 135/78; PULSE 100; RESP 18; TEMP 98.5
[2017-09-06] MEDS ORDERED: LIDOCAINE 2% INJ 20 MG/ML SQ ONE (11:58)
--- NOTE | 2017-09-19 15:16 | IR ---
EXAMINATION TYPE: IR cvc insert >=5 years DATE OF EXAM: 09/19/2017 COMPARISON: NONE CLINICAL HISTORY: Multifocal neuropathy Needs long-term intravenous access for therapy PROCEDURE: After informed consent, the skin overlying the upper extremity vein was localized with ultrasound and noted to be compressible and patent. An ultrasound image was obtained and submitted on the patient' s chart. The overlying skin was prepped and draped and Lidocaine was used for local anesthesia. A s kin eliseo was made with a scalpel. Access was gained to the vein under ultrasound guidance with a 21 gauge needle and a 0.018 inch wire was advanced. Access site was dilated with Peel-Away sheath and c atheter tailored to the appropriate length and advanced such that the distal tip is at the cavoatrial junction. Spot image was obtained verifying placement. Catheter was fixed to the skin with suture and a sterile dressing was placed following hemostasis. Catheter was aspirated and flushed with sali ne. Patient was discharged in stable condition without complication. Maximal barrier technique is ut ilized. Ultrasound image is documented on the chart. Ultrasound used with sterile technique. Fluoro time and fluoroscopic images submitted to document procedure: 0.3 minutes fluoroscopy time, 34 intraoperative images IMPRESSION: STATUS POST ULTRASOUND AND FLUOROSCOPIC GUIDED PICC LINE PLACEMENT, READY FOR USE. THIS PROCEDURE WAS PERFORMED BY THE UNDERSIGNED.
== END 2017-09-06 12:27 | disposition home or self-care (01) ==
LOC: CATHCVL 10:56
PROVIDERS: ATTEND Radiology Diagnostic Radiology
DX: G61.82 Multifocal motor neuropathy (principal)
CPT/HCPCS: 36569; 76937; 77001; C1751; C1769; J2001

== ENCOUNTER 2017-10-15 06:15 | Day surgery (SDC) | payer OTHER ==
[2017-10-11 09:51] VITALS: BMI 41.5
[~2017-10-15 06:15] MED LIST: DEXAMETHASONE SOD PHOSPHATE 10 MG/ML 1 ML VIAL IV ONE; LACTATED RINGERS 1,000 ML IV SCH; LIDOCAINE 1% 20 ML VIAL (10MG/ML) FOR IV START INTRADERMA PRN; ONDANSETRON 4 MG/2 ML VIAL IVP ONE; Pre Op ABX Message 1 EACH MISC MISCELLANE ONE; SCOPOLAMINE 1.5MG/72HR PATCH TRANSDERM ONE
[2017-10-15 07:05] VITALS: RESP 16; TEMP 97.6
[2017-10-15] MEDS ORDERED: ONDANSETRON 4 MG/2 ML VIAL IVP ONE (07:09)
[2017-10-15] MEDS ORDERED: DEXAMETHASONE SOD PHOS (MDV) 100 MG/10 ML VIAL IVP ONE (07:09)
--- NOTE | 2017-10-15 07:27 | P.GSHP ---
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 She has poor IV access. - Constitutional Constitutional: Denies chills, Denies fever - EENT Eyes: denies blurred vision, denies pain Ears, nose, mouth and throat: Denies headache, Denies sore throat - Cardiovascular Cardiovascular: Denies chest pain, Denies irregular heart beat, Denies orthopnea , Denies palpitations, Denies paroxysmal nocturnal dyspnea, Denies shortness of breath - Respiratory Respiratory: Denies cough, Denies cough with sputum, Denies hemoptysis - Gastrointestinal Gastrointestinal: Denies abdominal pain, Denies coffee ground emesis, Denies diarrhea, Denies hematochezia, Denies jaundice, Denies melena, Denies nausea, Denies vomiting - Genitourinary (Female) Genitourinary: Denies dysuria, Denies hematuria - Genitourinary (Male) Genitourinary: Denies dysuria, Denies hematuria - Musculoskeletal Musculoskeletal: Denies myalgias - Integumentary Integumentary: Denies pruritus, Denies rash - Neurological Neurological: Denies numbness, Denies weakness - Psychiatric Psychiatric: Denies anxiety, Denies depression - Endocrine Endocrine: Denies fatigue, Denies weight change - Hematologic/Lymphatic Hematologic/Lymphatic: Denies easy bleeding, Denies easy bruising, Denies lymphedema - Allergic/Immunologic Allergic/Immunologic: Denies anaphylaxis, Denies angioedema, Denies urticaria Past Medical History Past Medical History: Asthma, Deep Vein Thrombosis (DVT), GERD/Reflux, Hyperlipidemia, Neurologic Disorder, Syncope, Thyroid Disorder Additional Past Medical History / Comment(s): PAST HX "borderline migraines", NEUROPATHY LEFT ARM, CONTRACTURES FINGERS LEFT HAND, 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 PICC LINE X2 AND REMOVED Past Anesthesia/Blood Transfusion Reactions: No Reported Reaction Smoking Status: Former smoker - Past Family History Mother Family Medical History: No Reported History Father Additional Family Medical History / Comment(s): PERIPHERAL VASCULAR DX Medications and Allergies Home Medications Medication Instructions Recorded Confirmed Type Cholecalciferol [Vitamin D3] 2,000 unit PO QID 03/23/15 10/15/17 History Gabapentin [Neurontin] 800 mg PO QID 03/23/15 10/15/17 History Sertraline [Zoloft] 150 mg PO DAILY 03/23/15 10/15/17 History Fluticasone Nasal [place] [Flonase 2 spr EA NOSTRIL HS 04/22/17 10/15/17 History Nasal [place]] Levothyroxine Sodium [Synthroid] 137 mcg PO DAILY 04/22/17 10/15/17 History Montelukast [Singulair] 10 mg PO HS 04/22/17 10/15/17 History Simvastatin 40 mg PO HS 04/22/17 10/15/17 History Tiotropium Br/Olodaterol HCl 2 spray INHALATION QA 04/22/17 10/15/17 History [Stiolto Respimat Inhal [place]] busPIRone HCL 10 mg PO TID 04/22/17 10/15/17 History Ivig 1 applicate IV TU 08/21/17 10/15/17 History Nortriptyline HCl 75 mg PO 08/21/17 10/15/17 History Allergies Allergy/AdvReac Type Severity Reaction Status Date / Time adhesive Allergy Rash/Hives/ Verified 10/11/17 09:45 ITCHING amoxicillin AdvReac Severe YEAST Verified 08/31/17 13:59 INFECTION Surgical - Exam Osteopathic Statement: *. No significant issues noted on an osteopathic structural exam other than those noted in the History and Physical/Consult. Vital Signs Temp Pulse Resp BP Pulse Ox 97.6 F 88 16 132/76 98 10/15/17 07:02 10/15/17 07:02 10/15/17 07:02 10/15/17 07:02 10/15/17 07:02 - General well developed, well nourished, no distress, obese - Eyes normal ocular movement, no icteric - ENT no hearing loss, no congestion - Neck no masses, no bruits, trachea midline - Respiratory normal expansion, normal respiratory effort, clear to auscultation - Cardiovascular Rhythm: regular - Abdomen Abdomen: soft, non tender, no guarding, no rigid, no rebound - Integumentary no rash, no abnormal pigmentation - Neurologic no disoriented, no combative - Musculoskeletal normal gait, normal posture - Psychiatric oriented to time, oriented to person, oriented to place, speech is normal, memory intact Assessment and Plan (1) Poor intravenous access Current Visit: Yes Status: Acute Code(s): Z78.9 - OTHER SPECIFIED HEALTH STATUS SNOMED Code(s): 006155596 Plan: Patient is admitted for insertion of Port-A-Cath utilizing a right internal jugular. We discussed with her the procedure, its risks, and the options. She appears to understand this and agrees to proceed.
[2017-10-15] MEDS ORDERED: LIDOCAINE (PF) 10 MG/ML 2 ML VIAL SQ ONE ×2 (07:29)
[2017-10-15] MEDS ORDERED: HEPARIN SODIUM,PORCINE 100 UNIT/ML 5 ML VIAL IV ONE (07:29)
[2017-10-15] MEDS ORDERED: MIDAZOLAM 2 MG/2 ML VIAL ONE (07:30)
[2017-10-15] MEDS ORDERED: PROPOFOL 10 MG/ML 20 ML VIAL IV ONE (07:30)
[2017-10-15] MEDS ORDERED: KETAMINE 10 MG/ML 20 ML VIAL ONE (07:30)
[2017-10-15] MEDS ORDERED: LIDOCAINE 1% INJ 10MG/ML (20 ML MDV) ONE (07:30)
[2017-10-15] MEDS ORDERED: fentaNYL (PF) 50 MCG/ML 2 ML AMP ONE (07:30)
[2017-10-15] MEDS ORDERED: ceFAZolin 1,000 MG VIAL IVPB ONE (07:44)
--- NOTE | 2017-10-15 08:34 | FL ---
EXAMINATION TYPE: FL guided central line placemt HISTORY: Fluoroscopy time Impression: 1. Fluoroscopy support provided to the referring physician. 3 seconds of fluoroscopy provided
[2017-10-15] MEDS: HYDROmorphone 0.5 MG/0.5 ML SYRINGE IVP PRN ×2 (08:43→08:52)
--- NOTE | 2017-10-15 09:06 | XR ---
EXAMINATION TYPE: XR chest 1V confirm line [facility] DATE OF EXAM: 10/15/2017 COMPARISON: NONE HISTORY: Port-A-Cath placement TECHNIQUE: Single frontal view of the chest is obtained. FINDINGS: Mediport seen with the tip overlying the right atrium. No sizable pneumothorax. Exam limit ed by motion artifact and reduced inspiration. Subsegmental areas of consolidation. Hilar interstitia l prominence noted. IMPRESSION: Limited exam demonstrates no pneumothorax. Basilar atelectasis or infiltrate with inters titial changes could been the basis of mild venous congestion or interstitial pneumonitis correlate c linically.
[2017-10-15] MEDS ORDERED: KETOROLAC 30 MG/ML 1 ML VIAL IVP ONE (09:13)
[2017-10-15] MEDS ORDERED: fentaNYL (PF) 50 MCG/ML 2 ML AMP IVP ONE (09:14)
[2017-10-15 09:37] VITALS: BP 140/88; PULSE 92
--- NOTE | 2017-10-15 10:30 | P.PCN ---
Date of Procedure: 10/15/17 Preoperative Diagnosis: Neuropathy and autoimmune disease requiring IV access with poor IV access Postoperative Diagnosis: Same Procedure(s) Performed: Insertion of Port-A-Cath Anesthesia: MAC Surgeon: Clemente Joiner IV fluids (ml): 10 Pathology: none sent Condition: stable Disposition: PACU Indications for Procedure: Patient has a neuropathy and an auto immune disorder and requires long-term IV access. She has poor veins. Operative Findings: There were no specific abnormalities on placing the Port-A-Cath. Description of Procedure: With the patient spine position, under benefit of IV sedation, we prepped and draped in standard fashion. Using ultrasound guidance we accessed the right internal jugular her cutaneously. A guidewire was inserted through the needle and the needle was removed. We anesthetized further with 1% lidocaine and couple of centimeters beneath the clavicle we made a transverse incision. We made a pocket just superficial to the pectoralis fascia. We placed the reservoir securely on the catheter and secured it within the pocket with 3-0 silk. We then tunneled the rest of the catheter from this pocket to the puncture site in the neck. We placed a guidewire and dilator over the sheath in standard Seldinger fashion. We removed the guidewire and dilator and placed the catheter through the sheath. The catheter had been cut to length using fluoroscopic guidance. The catheter was placed through the sheath and sheath was removed. Fluoroscopically it was found to be at the superior vena cava at the level of the right atrium. There was good blood return from the reservoir. The reservoir was charged with a standard heparin solution. The incision was closed with Vicryl. Sterile dressings were applied. The patient tolerated the procedure well and was taken recovery area in stable condition.
== END 2017-10-15 10:07 | disposition home or self-care (01) ==
LOC: OR 06:15
PROVIDERS: ATTEND Thoracic Surgery (Cardiothoracic Vascular Surgery)
DX: G61.82 Multifocal motor neuropathy (principal); D89.89 Other specified disorders involving the immune mechanism, not elsewhere classified; I87.2 Venous insufficiency (chronic) (peripheral); J45.909 Unspecified asthma, uncomplicated; K21.9 Gastro-esophageal reflux disease without esophagitis; E78.5 Hyperlipidemia, unspecified; E07.9 Disorder of thyroid, unspecified; R55 Syncope and collapse; Z86.718 Personal history of other venous thrombosis and embolism; Z79.890 Hormone replacement therapy; Z79.51 Long term (current) use of inhaled steroids; Z79.899 Other long term (current) drug therapy; Z88.0 Allergy status to penicillin; Z91.048 Other nonmedicinal substance allergy status; Z98.51 Tubal ligation status; Z87.891 Personal history of nicotine dependence
CPT/HCPCS: 81025; 77001; 36561; C1788; J2250; J2001 ×2; J1642; J2405; J0690; J3010; J1885; J1100; J2704; J1170

== ENCOUNTER 2017-10-17 16:11 | Emergency (ER) | payer OTHER ==
[2017-10-17] MEDS ORDERED: MORPHINE SULFATE 2 MG/ML SYRINGE IM STA (19:23)
--- NOTE | 2017-10-17 19:27 | ED ---
Recheck HPI - General Chief Complaint: Recheck/Abnormal Lab/Rx Stated Complaint: Recheck infusion site Time Seen by Provider: 10/17/17 18:35 Source: patient Mode of arrival: wheelchair Limitations: no limitations - History of Present Illness Initial Comments: 52-year-old female patient presents to emergency department today for evaluation of right-sided chest tenderness and swelling after receiving an infusion of IVIG today. Patient states that she had her right chest port placed by Dr. Sharp on 10/15/2017. Patient states that today she had her first infusion drip. States that the nurse accessed the line, and use the IVIG. States that she is having discomfort so she went to the mirror to look and she was having swelling to the right side of the chest. Patient states that the pain does radiate up into her neck. States it is very tender to the touch. She denies any fevers or chills. Denies any shortness of breath, sweats , nausea, or vomiting. Patient states that she did apply ice to the area but it did not seem to help her symptoms. Patient denies any recent rash, fever, chills, shortness breath, abdominal pain, diarrhea, constipation, back pain, numbness, tingling, dizziness, weakness, hematuria, dysuria, urinary urgency, urinary frequency, headache, visual changes, or any other complaints. - Related Data Home Medications Medication Instructions Recorded Confirmed Cholecalciferol [Vitamin D3] 2,000 unit PO QID 03/23/15 10/17/17 Gabapentin [Neurontin] 800 mg PO QID 03/23/15 10/17/17 Sertraline [Zoloft] 150 mg PO DAILY 03/23/15 10/17/17 Fluticasone Nasal [place] [Flonase 2 spr EA NOSTRIL HS 04/22/17 10/17/17 Nasal [place]] Levothyroxine Sodium [Synthroid] 137 mcg PO DAILY 04/22/17 10/17/17 Montelukast [Singulair] 10 mg PO HS 04/22/17 10/17/17 Simvastatin 40 mg PO HS 04/22/17 10/17/17 Tiotropium Br/Olodaterol HCl 2 spray INHALATION RT-DAILY 04/22/17 10/17/17 [Stiolto Respimat Inhal [place]] busPIRone HCL 10 mg PO TID 04/22/17 10/17/17 Nortriptyline HCl 75 mg PO HS 08/21/17 10/17/17 Albuterol Sulfate [Proair Hfa] 2 puff INHALATION RT-Q6H PRN 10/17/17 10/17/17 Beclomethasone Dipropionate [Qvar 2 puff INHALATION RT-DAILY 10/17/17 10/17/17 40 mcg] Allergies Allergy/AdvReac Type Severity Reaction Status Date / Time adhesive Allergy Rash/Hives/ Verified 10/17/17 18:54 ITCHING amoxicillin AdvReac Severe YEAST Verified 10/17/17 18:54 INFECTION Review of Systems ROS Statement: Those systems with pertinent positive or pertinent negative responses have been documented in the HPI. ROS Other: All systems not noted in ROS Statement are negative. 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 PICC LINE X2 AND REMOVED Past Anesthesia/Blood Transfusion Reactions: No Reported Reaction Past Psychological History: Anxiety, Depression Smoking Status: Former smoker Past Alcohol Use History: None Reported Past Drug Use History: None Reported - Past Family History Mother Family Medical History: No Reported History Father Additional Family Medical History / Comment(s): PERIPHERAL VASCULAR DX General Exam Limitations: no limitations General appearance: alert, in no apparent distress, other (This is a well- developed, well-nourished adult female patient in no acute distress. Vital signs upon presentation are temperature 98.2F, pulse 90, respirations 20, blood pressure 147/90, pulse ox 98% on room air.) Eye exam: Present: normal appearance, PERRL, EOMI. Absent: scleral icterus, conjunctival injection, periorbital swelling ENT exam: Present: normal exam, normal oropharynx, mucous membranes moist Respiratory exam: Present: normal lung sounds bilaterally, chest wall tenderness (Right upper chest wall tenderness), other (Patient has soft tissue swelling and tenderness noted over the right upper chest wall over her port insertion site. Tenderness extends up into the right side of the neck.). Absent: respiratory distress, wheezes, rales, rhonchi, stridor Cardiovascular Exam: Present: regular rate, normal rhythm, normal heart sounds. Absent: systolic murmur, diastolic murmur, rubs, gallop, clicks GI/Abdominal exam: Present: soft, normal bowel sounds. Absent: distended, tenderness, guarding, rebound, rigid Neurological exam: Present: alert, oriented X3, CN II-XII intact Psychiatric exam: Present: normal affect, normal mood Skin exam: Present: warm, dry, intact, normal color. Absent: rash Course Vital Signs 10/17/17 10/17/17 10/17/17 17:13 19:20 20:03 Temperature 98.2 F 98.8 F 98.6 F Pulse Rate 90 80 74 Respiratory 20 19 18 Rate Blood Pressure 147/90 152/88 161/78 O2 Sat by Pulse 98 96 96 Oximetry Medical Decision Making - Medical Decision Making 52-year-old female patient presented to the emergency department today for evaluation of right-sided chest swelling and tenderness after having an infusion of IVIG through her new Mediport. Physical examination did reveal soft tissue swelling, warmth to the right upper chest. Symptoms are consistent with infiltration. I did discuss infiltration of IVIG with the pharmacist. They state that the subcutaneous route is an improved method of administration of 4 IVIG so there would not need to be any intervention. I did provide patient with pain medication. She is instructed to apply warm compresses to the site 8 and absorption. She is instructed to contact Dr. Tong for further instruction and evaluation. She is instructed to take home pain medication. She is instructed to apply warm compresses over the site. Return parameters were discussed in detail. She verbalizes understanding and agrees with the plan. Disposition Clinical Impression: Infiltration, infusion or chemotherapeutic agent Disposition: HOME SELF-CARE Condition: Good Instructions: IV Infiltration (ED) Additional Instructions: Apply warm compresses to the right side of the chest. Take home pain medication for discomfort. Follow-up with your primary care physician for recheck in 1-2 days. Follow-up with the physician who manages your infusions. Return here immediately for any new, worsening, or concerning symptoms. Is patient prescribed a controlled substance at d/c from ED?: No Referrals: Ana Rodríguez MD [Primary Care Provider] - 1-2 days Time of Disposition: 19:27
[2017-10-17 20:05] VITALS: BP 161/78; PULSE 74; RESP 18; TEMP 98.6
== END 2017-10-17 20:15 | disposition home or self-care (01) ==
LOC: EC 16:11
DX: T80.89XA Other complications following infusion, transfusion and therapeutic injection, initial encounter (principal); L98.6 Other infiltrative disorders of the skin and subcutaneous tissue; J45.909 Unspecified asthma, uncomplicated; K21.9 Gastro-esophageal reflux disease without esophagitis; E78.5 Hyperlipidemia, unspecified; G62.9 Polyneuropathy, unspecified; F32.9 Major depressive disorder, single episode, unspecified; F41.9 Anxiety disorder, unspecified; Z87.891 Personal history of nicotine dependence; Z79.51 Long term (current) use of inhaled steroids; Z79.899 Other long term (current) drug therapy; Z88.0 Allergy status to penicillin; Z91.048 Other nonmedicinal substance allergy status
CPT/HCPCS: 99283; 96372; J2270

== ENCOUNTER → 2018-08-29 | Outpatient (CLI) | payer BC ==
--- NOTE | 2018-08-29 11:23 | CT ---
EXAMINATION TYPE: CT brain wo con DATE OF EXAM: 08/29/2018 COMPARISON: 09/12/2012 HISTORY: Headaches, Hypersomnia CT DLP: 1054.2 mGycm. Automated Exposure Control for Dose Reduction was Utilized. TECHNIQUE: CT scan of the head is performed without contrast. FINDINGS: There is no acute intracranial hemorrhage, mass effect, or midline shift identified. Ther e are patchy areas of hypoattenuation that are not limited to the periventricular and subcortical whi te matter but also seen within the brainstem. The lower jasmyne and medulla are somewhat limited by spra y artifact however hypoattenuated areas are also seen within the upper jasmyne. Note is made of a partia lly empty sella turcica. No cerebellar tonsillar herniation. There is slight rightward nasal septal d eviation and a small nasal septal spur. The ventricles and sulci are within normal limits in size. The globes are intact and the visualized sinuses are clear. IMPRESSION: 1. No acute intracranial hemorrhage, mass effect, or midline shift is seen. 2. Interval development of patchy areas of hypoattenuation in the jasmyne and suspected within the brain stem in addition to mild nonspecific white matter change of the supratentorium. Findings may be seque la of chronic microangiopathy and related to age-indeterminate lacunar injuries. These could be furth er evaluated with MRI. 3. Incidentally noted partially empty sella turcica without other CT evidence of increased intracrani al pressure.
== END | disposition home or self-care (01) ==
LOC: RADCTMAIN 10:48
PROVIDERS: ATTEND Family Medicine
DX: R94.02 Abnormal brain scan (principal); Z87.828 Personal history of other (healed) physical injury and trauma
CPT/HCPCS: 70450

== ENCOUNTER → 2018-10-01 | Outpatient (CLI) | payer BC ==
--- NOTE | 2018-10-01 16:07 | US ---
EXAMINATION TYPE: US thyroid st tissue head/neck DATE OF EXAM: 10/01/2018 COMPARISON: 08/30/2017 CLINICAL HISTORY: E043.8 other spec hypothyroidism. F/U previous GLAND SIZE: Right Lobe: 2.7 x 1.3 x 1.0 cm Overall Parenchyma: heterogenous Left Lobe: 3.2 x 1.0 x 0.9 cm Overall Parenchyma: heterogeneous Isthmus Thickness: 0.3 cm NODULES LEFT: # of nodules measured on left: 1 1. 0.9 X 0.4 x 0.7 cm cystic nodule at the lower pole with well-defined margins; This nodule is wi serena than tall and shows no intranodular vascularity. Prior size: 1.0 x 0.4 x 0.8 cm Bilateral neck scanned, no evidence of lymphadenopathy. Stable nodule left lobe. IMPRESSION: Thyroid tissue heterogeneous correlate for thyroiditis. Stable left-sided thyroid cyst.
== END | disposition home or self-care (01) ==
LOC: RADUSWWP 14:21
PROVIDERS: ATTEND Internal Medicine Endocrinology, Diabetes & Metabolism
DX: E04.1 Nontoxic single thyroid nodule (principal)
CPT/HCPCS: 76536

== ENCOUNTER → 2018-10-01 | Outpatient (CLI) | payer BC ==
[2018-10-01 23:17] LABS: T4, Free (Free Thyroxine) 1.2 ng/dL (0.80-1.80)
== END | disposition home or self-care (01) ==
LOC: LABWHC1 14:24
PROVIDERS: ATTEND Psychiatry & Neurology Neurology
DX: E04.2 Nontoxic multinodular goiter (principal)
CPT/HCPCS: 36415; 84439; 84443

== ENCOUNTER → 2018-10-03 | Outpatient (CLI) | payer BC ==
[2018-10-03 09:29] LABS: Basophils % (A) 0 %; Eosinophils # (A) 0.2 k/uL (0-0.7); Eosinophils % (A) 2 %; HCT 40.1 % (34.0-46.0); HGB 13.2 gm/dL (11.4-16.0); Lymphocytes # (A) 1.4 k/uL (1.0-4.8); Lymphocytes % (A) 21 %; MCH 29.6 pg (25.0-35.0); MCHC 32.9 g/dL (31.0-37.0); MCV 89.9 fL (80.0-100.0); Mean Platelet Volume 7.6; Monocytes # (A) 0.4 k/uL (0-1.0); Monocytes % (A) 7 %; Neutrophils # (A) 4.3 k/uL (1.3-7.7); Neutrophils % (A) 67 %; Platelet Count 340 k/uL (150-450); RBC 4.46 m/uL (3.80-5.40); RDW 13.6 % (11.5-15.5); WBC 6.4 k/uL (3.8-10.6)
[2018-10-03 16:59] LABS: Vitamin D 25 Hydroxy 82.8 ng/mL (30.0-100.0)
[2018-10-03 17:05] LABS: African American GFR (CKD) 85.8 (60.0-200.0); Albumin 4.1 g/dL (3.80-4.90); Anion Gap 7.7 mmol/L (4.00-12.00); BUN/Creat Ratio 15.56 Ratio (12.00-20.00); Calcium 9.7 mg/dL (8.7-10.3); Carbon Dioxide 29.3 mmol/L (21.6-31.8); Globulin 4.1 g/dL (1.6-3.3); Potassium 4.4 mmol/L (3.5-5.5); Total Bilirubin 0.6 mg/dL (0.3-1.2); Total Protein 8.2 g/dL (6.2-8.2)
[2018-10-03 17:09] LABS: Folate, Serum >24.0 ng/mL
== END | disposition home or self-care (01) ==
LOC: LABWHC1 08:18
PROVIDERS: ATTEND Psychiatry & Neurology Neurology
DX: E53.8 Deficiency of other specified B group vitamins (principal); G61.82 Multifocal motor neuropathy; R79.89 Other specified abnormal findings of blood chemistry
CPT/HCPCS: 36415; 80053; 82306; 82607; 82746; 84207; 85025

== ENCOUNTER → 2018-10-06 | Outpatient (CLI) | payer BC ==
--- NOTE | 2018-10-06 09:10 | CT ---
EXAMINATION TYPE: CT ankle LT wo con DATE OF EXAM: 10/06/2018 COMPARISON: None HISTORY: 22-year-old female nondisplaced fracture of lateral malleolus of Lt fibula, subsequent encou nter for closed fracture with routine healing TECHNIQUE: Contiguous axial scanning of the left ankle without IV contrast. Coronal and sagittal robin nstructions performed. 3-D reconstructions generated on a dedicated independent workstation. CT DLP: 152.2 mGycm Automated exposure control for dose reduction was used. FINDINGS: Incidental small os peroneum and type I accessory navicular. Os supra naviculare also demonstrated. S clerotic focus superior aspect of the calcaneal body suggesting a bone island. Possible intraosseous lipoma measuring approximately 1.3 cm in the anterior calcaneal body. Subtalar joint is aligned. Moderate-sized tibiotalar joint effusion. There is an oblique fracture of the distal fibula. Mature periosteal callus is present laterally and posteriorly and there are areas of endosteal bony bridging present. Some residual fracture lucency re livier along the mid anterior aspect. Thickened ATFL suggesting underlying sprain. Small plantar and posterior calcaneal spurs. IMPRESSION: 1. NONDISPLACED, OBLIQUE DISTAL FIBULAR FRACTURE. CORRELATE TO TIME SINCE INJURY. THERE ARE AREAS OF MATURE PERIOSTEAL CALLUS LATERALLY AND POSTERIORLY AND ADDITIONAL AREAS OF ENDOSTEAL BRIDGING DEVI CIALLY ALONG THE MID ASPECT. BONY BRIDGING IS INCOMPLETE ALONG THE ANTERIOR MID ASPECT. 2. THICKENED ATFL SUGGESTING UNDERLYING SPRAIN.
== END | disposition home or self-care (01) ==
LOC: RADCTMAIN 08:22
PROVIDERS: ATTEND Orthopaedic Surgery Sports Medicine
DX: S82.65XD Nondisplaced fracture of lateral malleolus of left fibula, subsequent encounter for closed fracture with routine healing (principal); M25.772 Osteophyte, left ankle

== ENCOUNTER 2018-12-12 09:55 | Day surgery (SDC) | payer BC ==
[2018-12-11 15:30] VITALS: BMI 38.2
[2018-12-12 10:28] VITALS: BP 149/78; PULSE 92; RESP 16; TEMP 98.4
--- NOTE | 2018-12-16 09:15 | IR ---
Fluoroscopic portogram([facility]). HISTORY: Device malfunction. The patient presented to the CVL with a Moffett needle within the port. Preliminary fluoroscopy demonst rated the catheter to be intact. The CVL Department cannot obtain access into the port and therefore injection could not be performed. IMPRESSION: 1. See above.
== END 2018-12-12 12:15 | disposition home or self-care (01) ==
LOC: CATHCVL 09:55
PROVIDERS: ATTEND Radiology Diagnostic Radiology
DX: Z45.2 Encounter for adjustment and management of vascular access device (principal); G61.82 Multifocal motor neuropathy; F32.9 Major depressive disorder, single episode, unspecified; E03.9 Hypothyroidism, unspecified; Z98.51 Tubal ligation status; E55.9 Vitamin D deficiency, unspecified; F17.200 Nicotine dependence, unspecified, uncomplicated; Z83.3 Family history of diabetes mellitus; Z82.69 Family history of other diseases of the musculoskeletal system and connective tissue; Z84.1 Family history of disorders of kidney and ureter; Z82.61 Family history of arthritis; Z79.51 Long term (current) use of inhaled steroids; Z79.52 Long term (current) use of systemic steroids; Z79.890 Hormone replacement therapy; Z79.899 Other long term (current) drug therapy; Z88.0 Allergy status to penicillin; Z91.09 Other allergy status, other than to drugs and biological substances
CPT/HCPCS: 36598

== ENCOUNTER 2018-12-29 07:56 | Day surgery (SDC) | payer BC ==
[2018-12-24 09:37] VITALS: BMI 38.2
[~2018-12-29 07:56] MED LIST changes: +HYDROmorphone 0.5 MG/0.5 ML SYRINGE IVP PRN; -SCOPOLAMINE 1.5MG/72HR PATCH TRANSDERM ONE
[2018-12-29 08:32] VITALS: RESP 15; TEMP 98.2
[2018-12-29 08:48] LABS: Glucose,Whole Blood 135 mg/dL (75-99)
[2018-12-29] MEDS ORDERED: PROPOFOL 10 MG/ML 20 ML VIAL IV ONE (08:56)
[2018-12-29] MEDS ORDERED: LIDOCAINE 1% INJ 10MG/ML (20 ML MDV) ONE (08:56)
[2018-12-29] MEDS ORDERED: fentaNYL (PF) 50 MCG/ML 2 ML AMP ONE (08:56)
[2018-12-29] MEDS ORDERED: KETAMINE 10 MG/ML 20 ML VIAL ONE (08:56)
[2018-12-29] MEDS ORDERED: MIDAZOLAM 2 MG/2 ML VIAL ONE (08:56)
--- NOTE | 2018-12-29 08:56 | P.GSHP ---
History of Present Illness H&P Date: 12/29/18 Chief Complaint: Malfunctioning Port-A-Cath This patient requires IV access for frequent infusions. This is related to an ongoing neuromuscular disorder. She has a Port-A-Cath in place, which has been in position for about a year. It has ceased to function. - Constitutional Constitutional: Reports weakness, Denies chills, Denies fever - EENT Eyes: denies blurred vision, denies pain Ears, nose, mouth and throat: Denies headache, Denies sore throat - Cardiovascular Cardiovascular: Denies chest pain, Denies shortness of breath - Respiratory Respiratory: Denies cough, Denies 7 - Gastrointestinal Gastrointestinal: Denies abdominal pain, Denies diarrhea, Denies nausea, Denies vomiting - Genitourinary (Female) Genitourinary: Denies dysuria, Denies hematuria - Genitourinary (Male) Genitourinary: Denies dysuria, Denies hematuria - Musculoskeletal Musculoskeletal: Denies myalgias - Integumentary Integumentary: Denies pruritus, Denies rash - Neurological Neurological: Denies numbness, Denies weakness - Psychiatric Psychiatric: Denies anxiety, Denies depression - Endocrine Endocrine: Denies fatigue, Denies weight change Past Medical History Past Medical History: Asthma, Deep Vein Thrombosis (DVT), GERD/Reflux, Hyperlipidemia, Neurologic Disorder, Sleep Apnea/CPAP/BIPAP, Syncope, Thyroid Disorder Additional Past Medical History / Comment(s): migraines, MMN (MULTIFOCAL MOTOR NEUOPATHY) NEUROPATHY LEFT ARM AND HAND, CONTRACTURES FINGERS LEFT HAND, MILD LEFT SIDED FACIAL DROOP , WEAKNESS IN LEGS., SEASONAL ALLERGIES, USES C-PAP MACHINE, GROWTH ON THYROID, OCCASIONAL COUGHING FITS WHEN EATING. , PORT-A-CATH. History of Any Multi-Drug Resistant Organisms: None Reported Past Surgical History: Section, Orthopedic Surgery, Tubal Ligation Additional Past Surgical History / Comment(s): oral surgery, left carpal tunnel, left foot bone removed left 5th toe-screw in left 4th toe, nerve biopsy left arm proximal sensory nerve 03/2017, LT ARM ULNAR NERVE SX. PICC LINE X2 AND REMOVED, PORT-A-CATH. Past Anesthesia/Blood Transfusion Reactions: No Reported Reaction, Family History of Problems w/ Anesthesia, Motion Sickness Additional Past Anesthesia/Blood Transfusion Reaction / Comment(s): DAD WAS CONFUSED, SLOW TO RESPOND-. Smoking Status: Former smoker - Past Family History Mother Family Medical History: No Reported History Father Additional Family Medical History / Comment(s): PERIPHERAL VASCULAR DX Medications and Allergies Home Medications Medication Instructions Recorded Confirmed Type Cholecalciferol [Vitamin D3] 2,000 unit PO QID 03/23/15 12/29/18 History Gabapentin [Neurontin] 800 mg PO QID 03/23/15 12/29/18 History Sertraline [Zoloft] 150 mg PO DAILY 03/23/15 12/29/18 History Fluticasone Nasal [place] [Flonase 2 spr EA NOSTRIL HS 04/22/17 12/29/18 History Nasal [place]] Levothyroxine Sodium [Synthroid] 137 mcg PO DAILY 04/22/17 12/29/18 History Simvastatin 40 mg PO HS 04/22/17 12/29/18 History Beclomethasone Dipropionate [Qvar 2 puff INHALATION RT-DAILY PRN 10/17/17 12/29/18 History 40 mcg] Aspirin [Adult Low Dose Aspirin EC] 81 mg PO DAILY 12/11/18 12/29/18 History Gammagard Ivig 45 gram IV. TH 12/11/18 12/29/18 History Nortriptyline [Pamelor] 50 mg PO HS 12/11/18 12/29/18 History Omeprazole [PriLOSEC] 40 mg PO DAILY 12/11/18 12/29/18 History Varenicline [Chantix Continuing 1 mg PO BID 12/11/18 12/29/18 History Pack] hydrOXYzine HCL [Atarax] 25 mg PO BID 12/11/18 12/29/18 History metFORMIN HCL [Glucophage] 500 mg PO BID 12/11/18 12/29/18 History predniSONE 20 mg PO DIRECTED 12/11/18 12/29/18 History Allergies Allergy/AdvReac Type Severity Reaction Status Date / Time adhesive Allergy Rash/Hives/ Verified 12/29/18 08:23 ITCHING amoxicillin AdvReac Severe YEAST Verified 12/29/18 08:23 INFECTION Surgical - Exam Osteopathic Statement: *. No significant issues noted on an osteopathic structural exam other than those noted in the History and Physical/Consult. Vital Signs Temp Pulse Resp BP Pulse Ox 98.2 F 98 15 142/75 100 12/29/18 08:30 12/29/18 08:30 12/29/18 08:30 12/29/18 08:30 12/29/18 08:30 - General well developed, well nourished, no distress, obese - Eyes normal ocular movement, no icteric - ENT no hearing loss, no congestion - Neck no masses, no bruits, trachea midline - Respiratory normal expansion, normal respiratory effort, clear to auscultation - Cardiovascular Rhythm: regular - Abdomen Abdomen: soft, non tender, no guarding, no rigid, no rebound - Integumentary no rash, no abnormal pigmentation - Neurologic no disoriented, no combative - Musculoskeletal normal gait, normal posture - Psychiatric oriented to time, oriented to person, oriented to place, speech is normal, memory intact Results - Labs Abnormal Lab Results - Last 24 Hours (Table) 12/29/18 Range/Units 08:45 POC Glucose (mg/dL) 135 H (75-99) mg/dL Assessment and Plan (1) Poor intravenous access Current Visit: No Status: Acute Code(s): Z78.9 - OTHER SPECIFIED HEALTH STATUS SNOMED Code(s): 430651108 Plan: Patient is admitted for removal of current Port-A-Cath and placement of a new one. We discussed with her the options. We discussed with her the potential complications including injury to underlying structures. She appears to understand these things and agrees to proceed.
[2018-12-29] MEDS ORDERED: HEPARIN SODIUM,PORCINE 100 UNIT/ML 5 ML VIAL IV ONE ×2 (08:59→09:30)
[2018-12-29] MEDS ORDERED: LIDOCAINE (PF) 10 MG/ML 2 ML VIAL SQ ONE ×2 (09:01→09:20)
[2018-12-29] MEDS ORDERED: LIDOCAINE 1% INJ 10MG/ML (20 ML MDV) SQ ONE (09:20)
[2018-12-29] MEDS ORDERED: LACTATED RINGERS 1,000 ML IV ONE (10:00)
--- NOTE | 2018-12-29 10:56 | P.PCN ---
Date of Procedure: 12/29/18 Preoperative Diagnosis: Malfunctioning Port-A-Cath Postoperative Diagnosis: Same Procedure(s) Performed: Removal of Port-A-Cath and attempted placement of new Port-A-Cath. Anesthesia: MAC Surgeon: Clemente Joiner Estimated Blood Loss (ml): 50 Pathology: none sent Condition: stable Disposition: PACU Indications for Procedure: The patient requires IV access for infusions and has poor peripheral veins. A Port-A-Cath placed about a year ago is no longer functioning well. Operative Findings: We were unable to safely adequately access the jugular vein Description of Procedure: With the patient spine position, under benefit of IV sedation, we prepped and draped in standard fashion. We made incision over the previous Port-A-Cath. Using electrocautery and sharp dissection it was removed intact including the reservoir and catheter. We then used ultrasound guidance to localize the jugular vein. We were able to access the jugular vein and easily placed a guidewire under fluoroscopy which went down the vena cava and the tip was localized in the inferior vena cava. We made an incision over the sternum to make access easier due to the patient's thick adipose. We placed the reservoir with an 8-[place] catheter into the pocket made and secured it with silk suture. We then tunneled it from our reservoir site to the puncture wound at the guidewire site. The catheter was cut to length. We then placed a guidewire and sheath over a guidewire in standard Seldinger fashion. The dilator was removed and the cath was placed through the sheath. The sheath was removed. The catheter appeared to be in good position in the upper superior vena cava, however we could not get blood return. We removed this catheter and after several failed attempts to access the jugular vein we aborted the procedure. Our incisions were closed with Vicryl. The patient tolerated the procedure well and was taken recovery area in stable condition.
[2018-12-29 11:14] VITALS: BP 129/78; PULSE 82
--- NOTE | 2018-12-29 11:32 | FL ---
EXAMINATION TYPE: FL guided central line placemt DATE OF EXAM: 12/29/2018 CLINICAL HISTORY: Port-A-Cath insertion TECHNIQUE: Fluoroscopy. COMPARISON: None. FINDINGS: Fluoroscopic guidance was provided during Mediport catheter insertion procedure performed by Dr. Joiner. A total of 35 seconds of fluoroscopic time was utilized during the procedure and si ngle spot fluoroscopic image is acquired. Single intraoperative image acquired shows poor visualizati on of port tip focusing on the heart. IMPRESSION: As Above.
== END 2018-12-29 11:51 | disposition home or self-care (01) ==
LOC: CATHCVL 07:56
PROVIDERS: ATTEND Thoracic Surgery (Cardiothoracic Vascular Surgery)
DX: T82.41XA Breakdown (mechanical) of vascular dialysis catheter, initial encounter (principal); J45.909 Unspecified asthma, uncomplicated; K21.9 Gastro-esophageal reflux disease without esophagitis; E78.5 Hyperlipidemia, unspecified; G47.30 Sleep apnea, unspecified; E07.9 Disorder of thyroid, unspecified; E11.42 Type 2 diabetes mellitus with diabetic polyneuropathy; G43.909 Migraine, unspecified, not intractable, without status migrainosus; G61.82 Multifocal motor neuropathy; E66.9 Obesity, unspecified; Z86.718 Personal history of other venous thrombosis and embolism; Z99.89 Dependence on other enabling machines and devices; Z98.891 History of uterine scar from previous surgery; Z98.890 Other specified postprocedural states; Z98.51 Tubal ligation status; Z84.89 Family history of other specified conditions; Z87.891 Personal history of nicotine dependence; Z79.51 Long term (current) use of inhaled steroids; Z79.890 Hormone replacement therapy; Z79.82 Long term (current) use of aspirin; Z79.84 Long term (current) use of oral hypoglycemic drugs; Z79.899 Other long term (current) drug therapy; Z91.048 Other nonmedicinal substance allergy status; Z88.0 Allergy status to penicillin; Z68.38 Body mass index [BMI] 38.0-38.9, adult; Y83.2 Surgical operation with anastomosis, bypass or graft as the cause of abnormal reaction of the patient, or of later complication, without mention of misadventure at the time of the procedure
CPT/HCPCS: 81025; 77001; 36590; 36561; C1788; J2250; J1642; J1100; J2405; J2001; J3010; J2704

== ENCOUNTER 2019-01-13 10:05 | Day surgery (SDC) | payer BC ==
[2019-01-09 11:59] VITALS: BMI 38.2
[~2019-01-13 10:05] MED LIST changes: +MIDAZOLAM 2 MG/2 ML VIAL IV PRN; +SCOPOLAMINE 1.5MG/72HR PATCH TRANSDERM ONE
[2019-01-13 10:40] VITALS: TEMP 97.6
[2019-01-13 10:49] LABS: Glucose,Whole Blood 211 mg/dL (75-99)
[2019-01-13] MEDS ORDERED: LIDOCAINE 1% INJ 10MG/ML (20 ML MDV) SQ ONE (11:37)
[2019-01-13] MEDS ORDERED: fentaNYL (PF) 50 MCG/ML 2 ML AMP ONE (11:54)
[2019-01-13] MEDS ORDERED: MIDAZOLAM 2 MG/2 ML VIAL ONE (11:54)
[2019-01-13] MEDS ORDERED: KETAMINE 10 MG/ML 20 ML VIAL ONE (11:54)
[2019-01-13] MEDS ORDERED: PROPOFOL 10 MG/ML 20 ML VIAL IV ONE (11:54)
[2019-01-13] MEDS ORDERED: SODIUM CHLORIDE 0.9% 50 ML with ceFAZolin 2,000 MG IV ONE ×4 (12:41)
--- NOTE | 2019-01-13 13:15 | FL ---
Fluoroscopy History: Port-a-Cath Insertion 1.30min fluoro time, 2 images scanned
[2019-01-13 13:45] LABS: Glucose,Whole Blood 225 mg/dL (75-99)
[2019-01-13] MEDS ORDERED: INSULIN ASPART (NovoLOG) 100 UNIT/ML VIAL SQ ONE (13:45)
[2019-01-13 14:15] LABS: Glucose,Whole Blood 226 mg/dL (75-99)
--- NOTE | 2019-01-13 14:20 | XR ---
EXAMINATION TYPE: XR chest 1V portable DATE OF EXAM: 01/13/2019 HISTORY: post port a cath insertion COMPARISON: 10/15/2017 TECHNIQUE: Single view of the chest is submitted. FINDINGS: Left-sided Port-A-Cath with distal tip overlying the SVC. No evidence for pneumothorax. There is no evidence for focal infiltrate. The heart is stable. Hilar and mediastinal structures are within normal limits. Degenerative changes are seen of the dorsal spine. IMPRESSION: 1. Port-A-Cath as noted without evidence for pneumothorax.
[2019-01-13 15:03] VITALS: RESP 18
[2019-01-13 15:11] VITALS: BP 122/82; PULSE 87
--- NOTE | 2019-01-13 17:37 | P.OP ---
Date of Procedure: 01/13/19 Preoperative Diagnosis: Multifactorial motor neuropathy Postoperative Diagnosis: same Procedure(s) Performed: left chest port a catheter placement via left internal jugular vein ultrasound guided access Anesthesia: MAC, local Surgeon: Eric López Estimated Blood Loss (ml): 20 Pathology: none sent Condition: stable Disposition: PACU Indications for Procedure: 53 year old female with history of multifactorial motor neuropathy who gets immunoglobulin therapy through a port which was removed a couple weeks ago presents to the hospital for placement of another port. She previously had a port attempted without success from the right internal jugular vein and presents for attempt at the left. Operative Findings: short thick neck, decreased neck mobility Description of Procedure: After written informed consent was obtained the patient all risks benefits and competitions were described the patient was brought to the operative suite and laid in a supine position the area of the neck and chest were prepped and draped in usual sterile fashion after appropriate anesthetic was performed per the anesthesiologist. A timeout was performed normal fashion and a boxer administered prior to incision. Utilizing ultrasound the left internal jugular vein was visualized shown to be patent without any thrombus and was compressible. Utilizing a multipurpose needle the vein was accessed under direct visualization of ultrasound and wire was placed into the superior vena cava. Needle was then removed and attention was then placed to the chest wall. A small incision was then created with a 10 blade scalpel on the anterior aspect of the chest wall dissection was carried down with electrocautery to the pectoral fascia. A pocket was created to allow for the Port-A-Cath to be placed. An 8-[place] Port-A-Cath was then chosen and tunneled from the incision site to the access site in the neck. The cath was then measured and cut to appropriate length. The port was then sutured in place with 3-0 PDS suture 2 at the pectoral fascia. A breakaway sheath dilator was then placed over the guidewire and the catheter was guided through the breakaway sheath and the sheath was removed. The port was then assessed for patency injured flushed easily and then was hep-locked. The incision was then closed in a multilayer fashion after it was copiously irrigated with saline and hemostasis was assured. The area was then cleansed and dressed with groove for the chest incision and Steri-Strips for the neck incision. Patient all procedure well and was sent to PACU for recovery. Chest x-ray was obtained demonstrating no evidence of pneumothorax and good placement of the port. Plan - Discharge Summary Discharge Rx Participant: No New Discharge Prescriptions: No Action RX: Sertraline [Zoloft] 150 mg PO DAILY RX: Gabapentin [Neurontin] 800 mg PO QID RX: Cholecalciferol [Vitamin D3 (25 Mcg = 1000 Iu)] 2,000 unit PO QID RX: Fluticasone Nasal [place] [Flonase Nasal [place]] 2 spr EA NOSTRIL HS RX: Simvastatin 40 mg PO HS RX: Levothyroxine Sodium [Synthroid] 137 mcg PO DAILY RX: Beclomethasone Dipropionate [Qvar 40 mcg] 2 puff INHALATION RT-DAILY PRN PRN Reason: Shortness Of Breath RX: Nortriptyline [Pamelor] 50 mg PO HS RX: predniSONE 20 mg PO DIRECTED RX: metFORMIN HCL [Glucophage] 500 mg PO BID RX: Varenicline [Chantix Continuing Pack] 1 mg PO BID RX: hydrOXYzine HCL [Atarax] 25 mg PO BID RX: Omeprazole [PriLOSEC] 40 mg PO DAILY Gammagard Ivig 45 gram IV. TH RX: Aspirin [Adult Low Dose Aspirin EC] 81 mg PO DAILY Discharge Medication List RX: Cholecalciferol [Vitamin D3 (25 Mcg = 1000 Iu)] 2,000 unit PO QID 03/23/15 [History] RX: Gabapentin [Neurontin] 800 mg PO QID 03/23/15 [History] RX: Sertraline [Zoloft] 150 mg PO DAILY 03/23/15 [History] RX: Fluticasone Nasal [place] [Flonase Nasal [place]] 2 spr EA NOSTRIL HS 04/22/17 [History] RX: Levothyroxine Sodium [Synthroid] 137 mcg PO DAILY 04/22/17 [History] RX: Simvastatin 40 mg PO HS 04/22/17 [History] RX: Beclomethasone Dipropionate [Qvar 40 mcg] 2 puff INHALATION RT-DAILY PRN 10/17/17 [History] Gammagard Ivig 45 gram IV. TH 12/11/18 [History] RX: Aspirin [Adult Low Dose Aspirin EC] 81 mg PO DAILY 12/11/18 [History] RX: Nortriptyline [Pamelor] 50 mg PO HS 12/11/18 [History] RX: Omeprazole [PriLOSEC] 40 mg PO DAILY 12/11/18 [History] RX: Varenicline [Chantix Continuing Pack] 1 mg PO BID 12/11/18 [History] RX: hydrOXYzine HCL [Atarax] 25 mg PO BID 12/11/18 [History] RX: metFORMIN HCL [Glucophage] 500 mg PO BID 12/11/18 [History] RX: predniSONE 20 mg PO DIRECTED 12/11/18 [History] Follow up Appointment(s)/Referral(s): Eric López DO [STAFF PHYSICIAN] - As Needed Patient Instructions/Handouts: *Surgery [facility] - (Anesthesia) Discharge Instructions Outpatient Surgery, Implanted Venous Access Port (DC), How to Care for Your Implanted Venous Access Port (DC) Activity/Diet/Wound Care/Special Instructions: SHOWER IN 24 HOURS RESUME ASPIRIN TOMORROW MAY ACCESS/USE PORT IN 72 HOURS CONTINUE TO CHECK BLOOD SUGAR Discharge Disposition: HOME SELF-CARE
== END 2019-01-13 15:10 | disposition home or self-care (01) ==
LOC: OR 10:05
PROVIDERS: ATTEND Surgery
DX: G61.82 Multifocal motor neuropathy (principal); J45.909 Unspecified asthma, uncomplicated; E03.9 Hypothyroidism, unspecified; E78.5 Hyperlipidemia, unspecified; F32.9 Major depressive disorder, single episode, unspecified; E11.9 Type 2 diabetes mellitus without complications; F17.200 Nicotine dependence, unspecified, uncomplicated; G47.33 Obstructive sleep apnea (adult) (pediatric); Z98.818 Other dental procedure status; Z98.890 Other specified postprocedural states; Z91.048 Other nonmedicinal substance allergy status; Z99.89 Dependence on other enabling machines and devices; Z79.52 Long term (current) use of systemic steroids; Z79.82 Long term (current) use of aspirin; Z79.84 Long term (current) use of oral hypoglycemic drugs; Z79.890 Hormone replacement therapy; Z79.899 Other long term (current) drug therapy; Z88.0 Allergy status to penicillin; Z82.49 Family history of ischemic heart disease and other diseases of the circulatory system
CPT/HCPCS: 36561; 81025; 77001; 71045; C1788; J2250; J1100; J2405; J0690; J2001; J3010; J1642; J2704

== ENCOUNTER 2019-01-16 08:15 | Emergency (ER) | payer BC ==
[2019-01-16 08:23] VITALS: BP 153/88; PULSE 103; RESP 16; TEMP 98
[2019-01-16] MEDS ORDERED: LIDOCAINE 5% PATCH TOPICAL STA (08:35)
--- NOTE | 2019-01-16 08:37 | ED ---
General Adult HPI - General Chief complaint: Recheck/Abnormal Lab/Rx Stated complaint: Port Issues Time Seen by Provider: 01/16/19 08:16 Source: patient, police Limitations: no limitations - History of Present Illness Initial comments: Dictation was produced using [employer] dictation software. please excuse any grammatical, word or spelling errors. Chief Complaint: Patient is a 53-year-old female presents with port site pain. History of Present Illness: A 53-year-old female she presents today with port site pain. Patient had a left chest Port-A-Cath replacement performed [address] Hickey. She has more history of multifocal motor neuropathy. She has his port for immunoglobulin therapy. Patient states she has a history of port placement in the past however wasn't usually this painful. She came to the emergency department today because she is not able to be seen in the office until Saturday. States that she has significant pain along the site of the port. She states that it's painful she swallows and turns her neck especially. Denies any fever, chills or night sweats. The ROS documented in this emergency department record has been reviewed and confirmed by me. Those systems with pertinent positive or negative responses have been documented in the HPI. All other systems are other negative and/or noncontributory. PHYSICAL EXAM: General Impression: Alert and oriented x3, not in acute distress HEENT: Normocephalic atraumatic, extra-ocular movements intact, pupils equal and reactive to light bilaterally, mucous membranes moist. Neck: Surgical incisions are clean dry and intact. No drainage, no hematoma. Minimal bruising, no bruit. Cardiovascular: Heart regular rate and rhythm, S1&S2 audible, no murmurs, rubs or gallops Chest: Lungs clear to auscultation bilaterally, no rhonchi, no wheeze, no rales Abdomen: Bowel sounds present, abdomen soft, non-tender, non-distended, no organomegaly Musculoskeletal: Pulses present and equal in all extremities, no peripheral edema Motor: no focal deficits noted Neurological: CN II-XII grossly intact, no focal motor or sensory deficits noted Skin: Intact with no visualized rashes Psych: Normal affect and mood ED course: 53 yo old female presents with port site pain. She is postop day #3 for placement. Vital signs upon arrival shows heart rate of 103, worse vital signs within acceptable limits. Patient has no strokelike symptoms. No concern for arterial injury given that there is also no bruit or discussed patient case with Dr. Olsen who is on-call for Dr. López. Dr. Olsen reports that patient likely has pain because more extensive dissection was performed in order to successfully place of port given Asians body habitus. Dr. Olsen is agreeable f or lidocaine patch however not to be placed over the incision sites. Patient will be given by mouth analgesic prescription. She is told to her appointment with vascular surgery ON Saturday. Patient understands return precautions. Told to return to the emergency Department with any drainage, worsening pain or expanding mass at the incision site. Patient understandable agreeable to disposition. - Related Data Home Medications Medication Instructions Recorded Confirmed Cholecalciferol [Vitamin D3 (25 2,000 unit PO QID 03/23/15 01/13/19 Mcg = 1000 Iu)] Gabapentin [Neurontin] 800 mg PO QID 03/23/15 01/13/19 Sertraline [Zoloft] 150 mg PO DAILY 03/23/15 01/13/19 Fluticasone Nasal [place] [Flonase 2 spr EA NOSTRIL HS 04/22/17 01/13/19 Nasal [place]] Levothyroxine Sodium [Synthroid] 137 mcg PO DAILY 04/22/17 01/13/19 Simvastatin 40 mg PO HS 04/22/17 01/13/19 Beclomethasone Dipropionate [Qvar 2 puff INHALATION RT-DAILY PRN 10/17/17 01/13/19 40 mcg] Aspirin [Adult Low Dose Aspirin EC] 81 mg PO DAILY 12/11/18 01/13/19 Gammagard Ivig 45 gram IV. TH 12/11/18 01/13/19 Nortriptyline [Pamelor] 50 mg PO HS 12/11/18 01/13/19 Omeprazole [PriLOSEC] 40 mg PO DAILY 12/11/18 01/13/19 Varenicline [Chantix Continuing 1 mg PO BID 12/11/18 01/13/19 Pack] hydrOXYzine HCL [Atarax] 25 mg PO BID 12/11/18 01/13/19 metFORMIN HCL [Glucophage] 500 mg PO BID 12/11/18 01/13/19 predniSONE 20 mg PO DIRECTED 12/11/18 01/13/19 Previous Rx's Medication Instructions Recorded HYDROcodone/APAP 5-325MG [[place] 1 tab PO Q6HR PRN 3 Days #12 tab 01/16/19 5-325] Allergies Allergy/AdvReac Type Severity Reaction Status Date / Time adhesive Allergy Rash/Hives/ Verified 01/16/19 08:20 ITCHING amoxicillin AdvReac Severe YEAST Verified 01/16/19 08:20 INFECTION Review of Systems ROS Statement: Those systems with pertinent positive or pertinent negative responses have been documented in the HPI. ROS Other: All systems not noted in ROS Statement are negative. Past Medical History Past Medical History: Asthma, Deep Vein Thrombosis (DVT), GERD/Reflux, Hyperlipidemia, Neurologic Disorder, Sleep Apnea/CPAP/BIPAP, Syncope, Thyroid Disorder Additional Past Medical History / Comment(s): migraines, MMN (MULTIFOCAL MOTOR NEUOPATHY) NEUROPATHY LEFT ARM AND HAND, CONTRACTURES FINGERS LEFT HAND, MILD LEFT SIDED FACIAL DROOP , WEAKNESS IN LEGS., SEASONAL ALLERGIES, USES C-PAP MACHINE, GROWTH ON THYROID, OCCASIONAL COUGHING FITS WHEN EATING. , PORT-A-CATH. History of Any Multi-Drug Resistant Organisms: None Reported Past Surgical History: Section, Orthopedic Surgery, Tubal Ligation Additional Past Surgical History / Comment(s): oral surgery, left carpal tunnel, left foot bone removed left 5th toe-screw in left 4th toe, nerve biopsy left arm proximal sensory nerve 03/2017, LT ARM ULNAR NERVE SX. PICC LINE X2 AND REMOVED, PORT-A-CATH. Past Anesthesia/Blood Transfusion Reactions: No Reported Reaction, Family History of Problems w/ Anesthesia, Motion Sickness Additional Past Anesthesia/Blood Transfusion Reaction / Comment(s): DAD WAS CONFUSED, SLOW TO RESPOND-. Past Psychological History: Anxiety, Depression Smoking Status: Former smoker Past Alcohol Use History: None Reported Past Drug Use History: None Reported - Past Family History Mother Family Medical History: No Reported History Father Additional Family Medical History / Comment(s): PERIPHERAL VASCULAR DX General Exam Limitations: no limitations Course Vital Signs 01/16/19 08:20 Temperature 98 F Pulse Rate 103 H Respiratory 16 Rate Blood Pressure 153/88 O2 Sat by Pulse 99 Oximetry Disposition Clinical Impression: Pain at surgical site Disposition: HOME SELF-CARE Condition: Good Instructions (If sedation given, give patient instructions): Hydrocodone/Acetaminophen (By mouth) Prescriptions: HYDROcodone/APAP 5-325MG [[place] 5-325] 1 tab PO Q6HR PRN 3 Days #12 tab PRN Reason: Severe Pain Is patient prescribed a controlled substance at d/c from ED?: Yes If prescribed controlled substance>3 days was MAPS reviewed?: Prescribed <3 Days Referrals: Ana Rodríguez MD [Primary Care Provider] - 1-2 days Eric López DO [STAFF PHYSICIAN] - 1-2 days Time of Disposition: 08:44
== END 2019-01-16 08:59 | disposition home or self-care (01) ==
LOC: EC 08:15
DX: G89.18 Other acute postprocedural pain (principal); K21.9 Gastro-esophageal reflux disease without esophagitis; E78.5 Hyperlipidemia, unspecified; G47.30 Sleep apnea, unspecified; E07.9 Disorder of thyroid, unspecified; J45.909 Unspecified asthma, uncomplicated; G61.82 Multifocal motor neuropathy; F41.9 Anxiety disorder, unspecified; F32.9 Major depressive disorder, single episode, unspecified; Z79.51 Long term (current) use of inhaled steroids; Z79.82 Long term (current) use of aspirin; Z79.890 Hormone replacement therapy; Z79.899 Other long term (current) drug therapy; Z79.84 Long term (current) use of oral hypoglycemic drugs; Z88.0 Allergy status to penicillin; Z91.048 Other nonmedicinal substance allergy status; Z87.891 Personal history of nicotine dependence
CPT/HCPCS: 99283

== ENCOUNTER → 2019-04-29 | Outpatient (CLI) | payer BC ==
[2019-04-29 11:49] VITALS: BP 157/90; PULSE 103; RESP 16; TEMP 98.1
[2019-04-29 14:06] LABS: Albumin 4.3 g/dL (3.5-5.0); Bilirubin, Delta 0.2 mg/dL (0.0-0.2); Bilirubin,Unconjugated 0.3 mg/dL (0.0-1.1); Total Bilirubin 0.5 mg/dL (0.2-1.3); Total Protein 8.5 g/dL (6.3-8.2)
[2019-04-29 18:46] LABS: % Iron Saturation 13.51 (12.00-45.00)
[2019-04-29 20:30] LABS: Hepatitis B Surface Antigen Non-Reactive (Non-Reactive); Hepatitis C IgG Antibody Non-Reactive (Non-Reactive)
[2019-04-29 20:35] LABS: HIV 1 AB Non-Reactive (Non-Reactive); HIV 2 AB Non-Reactive (Non-Reactive); HIV AB P24 Non-Reactive (Non-Reactive); HIV P24 AG Non-Reactive (Non-Reactive)
[2019-04-30 12:48] LABS: ANA Pattern Speckled; ANA Pattern 2 Nucleolar
== END ==
LOC: PROCWHC3 11:33
PROVIDERS: ATTEND Family Medicine
DX: E78.2 Mixed hyperlipidemia (principal)
CPT/HCPCS: 36591; 80076; 83516; 83540; 83550; 86038; 86039; 86803; 87340; 87390; 87522

== ENCOUNTER 2019-10-27 17:19 | Emergency (ER) | payer BC, MEDICARE ==
[2019-10-27 17:25] VITALS: TEMP 98
--- NOTE | 2019-10-27 17:39 | ED ---
General Adult HPI - General Chief complaint: Vaginal Bleeding Stated complaint: cramping/lower back pain/heavy vaginal bleeding Time Seen by Provider: 10/27/19 17:27 Source: patient Mode of arrival: ambulatory Limitations: no limitations - History of Present Illness Initial comments: Dictation was produced using doForms dictation software. please excuse any grammatical, word or spelling errors. This patient was cared for during a federal and state declared state of emergency secondary to Covid 19 Chief Complaint: 54-year-old female presents with heavy vaginal bleeding History of Present Illness: 54-year-old female she has past medical history of autoimmune neuropathy. She gets regular infusions. Patient states over the last 3-4 days she's been having heavy vaginal bleeding. Last month patient had one day of what she describes as menstruation. Her last 3-4 days patient has been soaking through tampons and pads every 1-2 hours. Patient called her primary care physician and she was instructed to come to the emergency [place] for hemoglobin check and pelvic ultrasound. Patient states she also has some lower back cramping. She's been passing multiple blood clots from her vagina. Patient has history of . No history of any other abdominal surgery. Denies any nausea or vomiting. No orthostasis The ROS documented in this emergency department record has been reviewed and confirmed by me. Those systems with pertinent positive or negative responses have been documented in the HPI. All other systems are other negative and/or noncontributory. PHYSICAL EXAM: General Impression: Alert and oriented x3, not in acute distress HEENT: Normocephalic atraumatic, extra-ocular movements intact, pupils equal and reactive to light bilaterally, mucous membranes moist. Cardiovascular: Heart regular rate and rhythm Chest: Able to complete full sentences, no retractions, no tachypnea Abdomen: abdomen soft, non-tender, non-distended, no organomegaly Musculoskeletal: Pulses present and equal in all extremities, no peripheral edema Motor: no focal deficits noted Neurological: CN II-XII grossly intact, no focal motor or sensory deficits noted Skin: Intact with no visualized rashes Psych: Normal affect and mood Pelvic exam: Small blood clot at the cervical os. No active bleeding at this time. No cervical motion or adnexal tenderness. ED course: 54-year-old feel presents with heavy vaginal bleeding. Signs upon arrival shows heart rate of 11, worse vital signs within acceptable limits. Transvaginal ultrasound was performed. There is a significantly limited exam. Laboratory evaluation obtained. CBC [place]. Hemoglobin 11.0. This appears to be over the patient's baseline of approximately 13. Coag panel is unremarkable. Metabolic panel is negative. Urinalysis shows 26 white blood cells with 5 squamous epithelial cells. Patient denies any urinary symptoms. Patient is currently clinically stable at this time. She is not actively bleeding. Patient states she does have an active pediatric geneticist Dr. Porter. Patient is advised to follow-up with any pediatric geneticist. Patient given outpatient referral to gynecology. For follow-up of vaginal bleeding. Return for was discussed. Patient understandable agreeable with plan. - Related Data Home Medications Medication Instructions Recorded Confirmed Cholecalciferol [Vitamin D3 (25 2,000 unit PO QID 03/23/15 01/13/19 Mcg = 1000 Iu)] Gabapentin [Neurontin] 800 mg PO QID 03/23/15 01/13/19 Sertraline [Zoloft] 150 mg PO DAILY 03/23/15 01/13/19 Fluticasone Nasal [place] [Flonase 2 spr EA NOSTRIL HS 04/22/17 01/13/19 Nasal [place]] Levothyroxine Sodium [Synthroid] 137 mcg PO DAILY 04/22/17 01/13/19 Simvastatin 40 mg PO HS 04/22/17 01/13/19 Beclomethasone Dipropionate [Qvar 2 puff INHALATION RT-DAILY PRN 10/17/17 01/13/19 40 mcg] Aspirin [Adult Low Dose Aspirin EC] 81 mg PO DAILY 12/11/18 01/13/19 Gammagard Ivig 45 gram IV. TH 12/11/18 01/13/19 Nortriptyline [Pamelor] 50 mg PO HS 12/11/18 01/13/19 Omeprazole [PriLOSEC] 40 mg PO DAILY 12/11/18 01/13/19 Varenicline [Chantix Continuing 1 mg PO BID 12/11/18 01/13/19 Pack] hydrOXYzine HCL [Atarax] 25 mg PO BID 12/11/18 01/13/19 metFORMIN HCL [Glucophage] 500 mg PO BID 12/11/18 01/13/19 predniSONE [Deltasone] 20 mg PO DIRECTED 12/11/18 01/13/19 Previous Rx's Medication Instructions Recorded HYDROcodone/APAP 5-325MG [[place] 1 tab PO Q6HR PRN 3 Days #12 tab 01/16/19 5-325] HYDROcodone/APAP 5-325MG [[place] 1 tab PO Q6HR PRN 3 Days #12 tab 10/27/19 5-325] Methocarbamol [Robaxin] 1,000 mg PO QID PRN #24 tab 10/27/19 Allergies Allergy/AdvReac Type Severity Reaction Status Date / Time adhesive Allergy Rash/Hives/ Verified 10/27/19 17:25 ITCHING amoxicillin AdvReac Severe YEAST Verified 10/27/19 17:25 INFECTION Review of Systems ROS Statement: Those systems with pertinent positive or pertinent negative responses have been documented in the HPI. ROS Other: All systems not noted in ROS Statement are negative. Past Medical History Past Medical History: Asthma, Deep Vein Thrombosis (DVT), GERD/Reflux, Hyperlipidemia, Neurologic Disorder, Sleep Apnea/CPAP/BIPAP, Syncope, Thyroid Disorder Additional Past Medical History / Comment(s): migraines, MMN (MULTIFOCAL MOTOR NEUOPATHY) NEUROPATHY LEFT ARM AND HAND, CONTRACTURES FINGERS LEFT HAND, MILD LEFT SIDED FACIAL DROOP , WEAKNESS IN LEGS., SEASONAL ALLERGIES, USES C-PAP MACHINE, GROWTH ON THYROID, OCCASIONAL COUGHING FITS WHEN EATING. , PORT-A-CATH. History of Any Multi-Drug Resistant Organisms: None Reported Past Surgical History: Section, Orthopedic Surgery, Tubal Ligation Additional Past Surgical History / Comment(s): oral surgery, left carpal tunnel, left foot bone removed left 5th toe-screw in left 4th toe, nerve biopsy left arm proximal sensory nerve 03/2017, LT ARM ULNAR NERVE SX. PICC LINE X2 AND REMOVED, PORT-A-CATH. Past Anesthesia/Blood Transfusion Reactions: No Reported Reaction, Family History of Problems w/ Anesthesia, Motion Sickness Additional Past Anesthesia/Blood Transfusion Reaction / Comment(s): DAD WAS CONFUSED, SLOW TO RESPOND-. Past Psychological History: Anxiety, Depression Past Alcohol Use History: None Reported Past Drug Use History: None Reported - Past Family History Mother Family Medical History: No Reported History Father Additional Family Medical History / Comment(s): PERIPHERAL VASCULAR DX General Exam Limitations: no limitations Course Vital Signs 10/27/19 17:21 Temperature 98.0 F Pulse Rate 101 H Respiratory 18 Rate Blood Pressure 152/96 O2 Sat by Pulse 100 Oximetry Medical Decision Making - Lab Data Result diagrams: 10/27/19 17:56 10/27/19 17:56 Lab Results 10/27/19 10/27/19 10/27/19 Range/Units 17:56 17:56 17:56 WBC 5.9 (3.8-10.6) k/uL RBC 4.04 (3.80-5.40) m/uL Hgb 11.0 L (11.4-16.0) gm/dL Hct 34.7 (34.0-46.0) % MCV 85.9 (80.0-100.0) fL MCH 27.3 (25.0-35.0) pg MCHC 31.8 (31.0-37.0) g/dL RDW 14.6 (11.5-15.5) % Plt Count 340 (150-450) k/uL Neutrophils % 56 % Lymphocytes % 30 % Monocytes % 6 % Eosinophils % 3 % Basophils % 1 % Neutrophils # 3.3 (1.3-7.7) k/uL Lymphocytes # 1.8 (1.0-4.8) k/uL Monocytes # 0.3 (0-1.0) k/uL Eosinophils # 0.2 (0-0.7) k/uL Basophils # 0.1 (0-0.2) k/uL PT 9.6 (9.0-12.0) sec INR 0.9 (<1.2) APTT 33.6 H (22.0-30.0) sec Sodium (137-145) mmol/L Potassium (3.5-5.1) mmol/L Chloride (98-107) mmol/L Carbon Dioxide (22-30) mmol/L Anion Gap mmol/L BUN (7-17) mg/dL Creatinine (0.52-1.04) mg/dL Est GFR (CKD-EPI)AfAm (>60 ml/min/1.73 sqM) Est GFR (CKD-EPI)NonAf (>60 ml/min/1.73 sqM) Glucose (74-99) mg/dL Calcium (8.4-10.2) mg/dL Total Bilirubin (0.2-1.3) mg/dL AST (14-36) U/L ALT (4-34) U/L Alkaline Phosphatase (38-126) U/L Total Protein (6.3-8.2) g/dL Albumin (3.5-5.0) g/dL Urine Color Yellow Urine Appearance Clear (Clear) Urine pH 6.0 (5.0-8.0) Ur Specific [place] 1.029 (1.001-1.035) Urine Protein 1+ H (Negative) Urine Glucose (UA) Negative (Negative) Urine Ketones Negative (Negative) Urine Blood Negative (Negative) Urine Nitrite Negative (Negative) Urine Bilirubin Negative (Negative) Urine Urobilinogen <2.0 (<2.0) mg/dL Ur Leukocyte Esterase Small H (Negative) Urine RBC 1 (0-5) /hpf Urine WBC 26 H (0-5) /hpf Ur Squamous Epith Cells 5 H (0-4) /hpf Amorphous Sediment Rare H (None) /hpf Urine Bacteria Rare H (None) /hpf Hyaline Casts 1 (0-2) /lpf Urine Mucus Rare H (None) /hpf Urine HCG, Qual (Not Detectd) 10/27/19 10/27/19 Range/Units 17:56 17:56 WBC (3.8-10.6) k/uL RBC (3.80-5.40) m/uL Hgb (11.4-16.0) gm/dL Hct (34.0-46.0) % MCV (80.0-100.0) fL MCH (25.0-35.0) pg MCHC (31.0-37.0) g/dL RDW (11.5-15.5) % Plt Count (150-450) k/uL Neutrophils % % Lymphocytes % % Monocytes % % Eosinophils % % Basophils % % Neutrophils # (1.3-7.7) k/uL Lymphocytes # (1.0-4.8) k/uL Monocytes # (0-1.0) k/uL Eosinophils # (0-0.7) k/uL Basophils # (0-0.2) k/uL PT (9.0-12.0) sec INR (<1.2) APTT (22.0-30.0) sec Sodium 134 L (137-145) mmol/L Potassium 4.1 (3.5-5.1) mmol/L Chloride 101 (98-107) mmol/L Carbon Dioxide 26 (22-30) mmol/L Anion Gap 7 mmol/L BUN 15 (7-17) mg/dL Creatinine 0.83 (0.52-1.04) mg/dL Est GFR (CKD-EPI)AfAm >90 (>60 ml/min/1.73 sqM) Est GFR (CKD-EPI)NonAf 82 (>60 ml/min/1.73 sqM) Glucose 133 H (74-99) mg/dL Calcium 9.4 (8.4-10.2) mg/dL Total Bilirubin 0.3 (0.2-1.3) mg/dL AST 32 (14-36) U/L ALT 22 (4-34) U/L Alkaline Phosphatase 69 (38-126) U/L Total Protein 8.2 (6.3-8.2) g/dL Albumin 4.1 (3.5-5.0) g/dL Urine Color Urine Appearance (Clear) Urine pH (5.0-8.0) Ur Specific [place] (1.001-1.035) Urine Protein (Negative) Urine Glucose (UA) (Negative) Urine Ketones (Negative) Urine Blood (Negative) Urine Nitrite (Negative) Urine Bilirubin (Negative) Urine Urobilinogen (<2.0) mg/dL Ur Leukocyte Esterase (Negative) Urine RBC (0-5) /hpf Urine WBC (0-5) /hpf Ur Squamous Epith Cells (0-4) /hpf Amorphous Sediment (None) /hpf Urine Bacteria (None) /hpf Hyaline Casts (0-2) /lpf Urine Mucus (None) /hpf Urine HCG, Qual Not Detected (Not Detectd) Disposition Clinical Impression: Menorrhagia Disposition: HOME SELF-CARE Condition: Good Instructions (If sedation given, give patient instructions): Dysmenorrhea (ED) Prescriptions: HYDROcodone/APAP 5-325MG [[place] 5-325] 1 tab PO Q6HR PRN 3 Days #12 tab PRN Reason: Severe Pain Methocarbamol [Robaxin] 1,000 mg PO QID PRN #24 tab PRN Reason: back spasm Is patient prescribed a controlled substance at d/c from ED?: Yes If prescribed controlled substance>3 days was MAPS reviewed?: Prescribed <3 Days Referrals: Ana Rodríguez MD [Primary Care Provider] - 1-2 days Viviana Marroquin DO [Doctor of Osteopathic Medicine] - 1-2 days Time of Disposition: 19:07
[2019-10-27 18:10] LABS: Basophils # (A) 0.1 k/uL (0-0.2); Basophils % (A) 1 %; Eosinophils # (A) 0.2 k/uL (0-0.7); Eosinophils % (A) 3 %; HCT 34.7 % (34.0-46.0); Lymphocytes # (A) 1.8 k/uL (1.0-4.8); Lymphocytes % (A) 30 %; MCH 27.3 pg (25.0-35.0); MCHC 31.8 g/dL (31.0-37.0); MCV 85.9 fL (80.0-100.0); Mean Platelet Volume 8.1; Monocytes # (A) 0.3 k/uL (0-1.0); Monocytes % (A) 6 %; Neutrophils # (A) 3.3 k/uL (1.3-7.7); Neutrophils % (A) 56 %; Platelet Count 340 k/uL (150-450); RBC 4.04 m/uL (3.80-5.40); RDW 14.6 % (11.5-15.5); WBC 5.9 k/uL (3.8-10.6)
[2019-10-27 18:15] LABS: Amorphous Sediment,Urine Rare /hpf; Appearance,Urine Clear (Clear); Bacteria,Urine Rare /hpf; Bilirubin,Urine Negative (Negative); Blood,Urine Negative (Negative); Color,Urine Yellow; Glucose,Urine (UA) Negative (Negative); Hyaline Casts,Urine 1 /lpf (0-2); Ketones,Urine Negative (Negative); Leukocyte Esterase,Urine Small (Negative); Mucus,Urine Rare /hpf; Nitrite,Urine Negative (Negative); Protein,Urine 1+ (Negative); RBC,Urine 1 /hpf (0-5); Specific Gravity,Urine 1.029 (1.001-1.035); Squamous Epithelial Cell,Urine 5 /hpf (0-4); Urobilinogen,Urine <2.0 mg/dL (<2.0); WBC,Urine 26 /hpf (0-5)
[2019-10-27 18:21] LABS: INR 0.9 (<1.2); Partial Thromboplastin Time 33.6 sec (22.0-30.0); Prothrombin Time 9.6 sec (9.0-12.0)
[2019-10-27 18:24] LABS: ALT 22 U/L (4-34); AST 32 U/L (14-36); African American GFR (CKD) >90 (>60 ml/min/1.73 sqM); Albumin 4.1 g/dL (3.5-5.0); Alkaline Phosphatase 69 U/L (38-126); Anion Gap 7 mmol/L; Blood Urea Nitrogen 15 mg/dL (7-17); Calcium 9.4 mg/dL (8.4-10.2); Carbon Dioxide 26 mmol/L (22-30); Chloride 101 mmol/L (98-107); Glucose 133 mg/dL (74-99); Non-African American GFR(CKD) 82 (>60 ml/min/1.73 sqM); Potassium 4.1 mmol/L (3.5-5.1); Sodium 134 mmol/L (137-145); Total Bilirubin 0.3 mg/dL (0.2-1.3); Total Protein 8.2 g/dL (6.3-8.2)
--- NOTE | 2019-10-27 18:59 | US ---
EXAMINATION TYPE: US transvaginal DATE OF EXAM: 10/27/2019 COMPARISON: US 2017 CLINICAL HISTORY: profuse vaginal bleeding. Profuse vaginal bleeding x 3 days. Pain. Hx , tu bal ligation. . TECHNIQUE: Transvaginal (TV). Date of LMP: 10/24/2019 EXAM MEASUREMENTS: Uterus: 9.9 x 7.0 x 6.1 cm Endometrial Stripe: 0.78 cm Right Ovary: not seen Left Ovary: not seen 1. Uterus: Anteverted Appears heterogeneous. 2. Endometrium: Poorly defined. Measures 0.78 cm. 3. Right Ovary: not seen 4. Left Ovary: not seen 5. Bilateral Adnexa: appear wnl 6. Posterior cul-de-sac: appears wnl IMPRESSION: 1. Endometrial canal is poorly defined. Etiology for profuse vaginal bleeding not identified. 2. There is limitation of the examination. Ovaries are not identified.
[2019-10-27 19:18] VITALS: BP 141/81; PULSE 85; RESP 18
== END 2019-10-27 19:25 | disposition home or self-care (01) ==
LOC: EC 17:19
DX: N92.0 Excessive and frequent menstruation with regular cycle (principal); F41.9 Anxiety disorder, unspecified; F32.9 Major depressive disorder, single episode, unspecified; E78.5 Hyperlipidemia, unspecified; J45.909 Unspecified asthma, uncomplicated; K21.9 Gastro-esophageal reflux disease without esophagitis; G47.30 Sleep apnea, unspecified; G62.9 Polyneuropathy, unspecified; Z79.890 Hormone replacement therapy; Z79.51 Long term (current) use of inhaled steroids; Z79.82 Long term (current) use of aspirin; Z79.899 Other long term (current) drug therapy; Z79.84 Long term (current) use of oral hypoglycemic drugs; Z88.0 Allergy status to penicillin; Z91.048 Other nonmedicinal substance allergy status; Z86.718 Personal history of other venous thrombosis and embolism; Z99.89 Dependence on other enabling machines and devices
CPT/HCPCS: 36415; 76830; 80053; 81001; 81025; 85025; 85610; 85730; 86850; 86900; 86901; 87086; 99284

== ENCOUNTER → 2019-10-29 | Outpatient (CLI) | payer BC ==
--- NOTE | 2019-10-29 15:01 | US ---
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 Takes immunoglobulin injections and thyroid medication. GLAND SIZE: Right Lobe: 3.3 x 1.0 x 1.2 cm Overall Parenchyma: heterogenous Left Lobe: 3.3 x 0.8 x 0.9 cm Overall Parenchyma: heterogeneous Isthmus Thickness: 0.3 cm NODULES RIGHT: # of nodules measured on right: 1 1. 0.9 x 0.8x 0.5cm hypoechoic cystic nodule at the upper pole with well-defined margins. This nodu le is wider than tall and shows no intranodular vascularity. Prior size: none seen LEFT: # of nodules measured on left: 1 1. 0.9 X 0.4 x 0.5 cm hypoechoic mixed nodule at the inferior pole with well-defined margins. This nodule is taller than wide and shows no intranodular vascularity., Lesion appears cystic Prior size: 0.9 x 0.4 x 0.7 cm ISTHMUS: # of nodules measured in the isthmus: 0 Bilateral neck scanned: couple of lymph nodes seen superior to right thyroid with larger = 1.0 x 0.7 x 0.3cm; left upper lymph node seen =0.6 x 0.6 x 0.4cm. IMPRESSION: Subcentimeter thyroid nodules, thyroid is somewhat atrophic
== END | disposition home or self-care (01) ==
LOC: RADUSWWP 12:51
PROVIDERS: ATTEND Internal Medicine Endocrinology, Diabetes & Metabolism
DX: E04.2 Nontoxic multinodular goiter (principal)
CPT/HCPCS: 76536

== ENCOUNTER 2019-11-13 07:11 | Day surgery (SDC) | payer BC, MEDICARE ==
[2019-11-11 08:52] VITALS: BMI 40.7
[~2019-11-13 07:11] MED LIST changes: -DEXAMETHASONE SOD PHOSPHATE 10 MG/ML 1 ML VIAL IV ONE; -HYDROmorphone 0.5 MG/0.5 ML SYRINGE IVP PRN; +LIDOCAINE 1% (10MG/ML) FOR IV START INTRADERMA PRN; -LIDOCAINE 1% 20 ML VIAL (10MG/ML) FOR IV START INTRADERMA PRN; -MIDAZOLAM 2 MG/2 ML VIAL IV PRN; -ONDANSETRON 4 MG/2 ML VIAL IVP ONE; -Pre Op ABX Message 1 EACH MISC MISCELLANE ONE; -SCOPOLAMINE 1.5MG/72HR PATCH TRANSDERM ONE
[2019-11-13 07:50] VITALS: TEMP 97.2
[2019-11-13 08:08] LABS: Glucose,Whole Blood 149 mg/dL (75-99)
[2019-11-13] MEDS ORDERED: PROPOFOL 10 MG/ML 20 ML VIAL IV ONE (08:38)
--- NOTE | 2019-11-13 09:00 | P.PCN ---
Date of Procedure: 11/13/19 Procedure(s) Performed: BRIEF HISTORY: Patient is a 54-year-old pleasant female scheduled for an elective colonoscopy as a part of screening for colorectal neoplasia. PROCEDURE PERFORMED: Colonoscopy with snare polypectomy. PREOPERATIVE DIAGNOSIS: Screening for colon cancer. IV sedation per Anesthesia. PROCEDURE: After informed consent was obtained, the patient, was brought into the endoscopy unit. IV sedation was administered by Anesthesia under continuous monitoring. Digital rectal examination was normal. Initially the Olympus CF-160 flexible video colonoscope was then inserted in the rectum, gradually advanced into the cecum without any difficulty. Careful examination was performed as the scope was gradually being withdrawn. Ileocecal valve and the appendiceal orifice were visualized and appeared normal. Prep was excellent. Mucosa of the cecum, ascending colon appeared normal. In the transverse colon there was a 5 mm sessile polyp removed by snare polypectomy. Rest of the transverse colon, descending colon, sigmoid colon, and rectum appeared normal. Retroflexion was performed in the rectum and no lesions were seen. The patient tolerated the procedure well. IMPRESSION: 5 mm transverse colon polyp status post polypectomy Rest of the colon appeared normal RECOMMENDATIONS: Findings of this examination were discussed with the patient. The family. She was advised to follow with the biopsy results. If the biopsies an adenoma she can have a repeat colonoscopy in 5 yrs.
[2019-11-13 09:19] VITALS: BP 128/73; PULSE 89; RESP 16
== END 2019-11-13 09:35 | disposition home or self-care (01) ==
LOC: ORWHC2ENDO 07:11
PROVIDERS: ATTEND Internal Medicine Gastroenterology
DX: Z12.11 Encounter for screening for malignant neoplasm of colon (principal); D12.3 Benign neoplasm of transverse colon; E11.40 Type 2 diabetes mellitus with diabetic neuropathy, unspecified; E78.5 Hyperlipidemia, unspecified; Z86.718 Personal history of other venous thrombosis and embolism; J45.909 Unspecified asthma, uncomplicated; G47.33 Obstructive sleep apnea (adult) (pediatric); E07.9 Disorder of thyroid, unspecified; G61.82 Multifocal motor neuropathy; G43.909 Migraine, unspecified, not intractable, without status migrainosus; Z79.84 Long term (current) use of oral hypoglycemic drugs; Z79.899 Other long term (current) drug therapy; Z79.82 Long term (current) use of aspirin; Z79.890 Hormone replacement therapy; Z88.0 Allergy status to penicillin; Z91.09 Other allergy status, other than to drugs and biological substances
CPT/HCPCS: 81025; 88305; 45385; J2704

== ENCOUNTER → 2021-04-03 | Outpatient (CLI) | payer BC ==
--- NOTE | 2021-04-03 14:45 | US ---
EXAMINATION TYPE: US thyroid st tissue head/neck DATE OF EXAM: 04/03/2021 COMPARISON: US Thyroid 10/29/2019 CLINICAL HISTORY: E03.9 Hypothyroidism. GLAND SIZE: Right Lobe: 2.9 x 1.1 x 1.1 cm Overall Parenchyma: heterogenous Left Lobe: 3.2 x 0.7 x 0.9 cm Overall Parenchyma: heterogeneous Isthmus Thickness: 0.23 cm NODULES RIGHT: # of nodules measured on right: 1 1. 0.6 X 0.6 x 0.6 cm, upper medial, cystic or almost completely cystic, anechoic nodule, which is wider than tall, with well-defined margins, without echogenic foci. Prior size: 0.9 x 0.8 x 0.5 cm LEFT: # of nodules measured on left: 1 1. 0.8 X 0.2 x 0.5 cm, upper medial, cystic or almost completely cystic, hypoechoic nodule, which i s wider than tall, with well-defined margins, without echogenic foci. Prior size: 0.9 x 0.4 x 0.5 cm ISTHMUS: # of nodules measured in the isthmus: 0 Bilateral neck scanned, no evidence of lymphadenopathy. Persistent heterogeneous small size thyroid with a few small bilateral nodules redemonstrated. IMPRESSION: As above. No significant change from prior study.
== END | disposition home or self-care (01) ==
LOC: RADUSWWP 13:25
PROVIDERS: ATTEND Internal Medicine Endocrinology, Diabetes & Metabolism
DX: E04.2 Nontoxic multinodular goiter (principal); E03.9 Hypothyroidism, unspecified
CPT/HCPCS: 76536

== ENCOUNTER → 2021-06-21 | Outpatient (CLI) | payer BC ==
--- NOTE | 2021-06-21 11:52 | CT ---
EXAMINATION TYPE: CT brain wo con DATE OF EXAM: 06/21/2021 COMPARISON: 08/29/2018 HISTORY: new headache x5days CT DLP: 1108.[address] of the brain was performed. The ventricles, basal cisterns and sulci overlying the cerebral convexities demonstrate mild enlargem ent. There is no evidence for intracranial hemorrhage or sulcal effacement. There is decreased attenuation about the periventricular white matter and deep white matter of both c erebral hemispheres, compatible with chronic small vessel ischemia. Differential diagnosis does inclu de demyelination. No mass effects are seen.No midline shift. Osseous calvarium is intact. If symptoms persist consider MRI. IMPRESSION: 1. Age related atrophic and chronic small vessel ischemic change without acute intracranial process s een at this time.
== END | disposition home or self-care (01) ==
LOC: RADCTMAIN 11:29
PROVIDERS: ATTEND Family Medicine
DX: I67.82 Cerebral ischemia (principal); G31.89 Other specified degenerative diseases of nervous system
CPT/HCPCS: 70450

== ENCOUNTER 2021-06-22 14:33 | Inpatient (IN) | payer BC ==
--- NOTE | 2021-06-22 15:39 | ED ---
General Adult HPI - General Chief complaint: Headache Stated complaint: Abnormal labs/Headache Time Seen by Provider: 06/22/21 14:49 Source: patient Mode of arrival: ambulatory Limitations: no limitations - History of Present Illness Initial comments: Dictation was produced using [employer] dictation software. please excuse any grammatical, word or spelling errors. Chief Complaint: 56-year-old female presents to the emergency room from primary care doctor for headache with elevated ESR History of Present Illness: Patient is 56-year-old female she presents to emergency department for headache and elevated ESR. Patient has a history of headaches however her headache for the last 6 days has felt different. She states it's bitemporal squeezing sensation. Patient normally gets sinus headaches. Patient has any vision loss. No pain with mastication. Denies any pain in front of her ear. Patient has any numbness and paresthesias to arms or legs. She states it feels severe. With her primary care doctor she had a normal computed tomography scan. She did have blood work that showed elevated ESR measuring 113. The potassium level of 6.2. She was sent in for temporal arteritis workup and hypokalemia. The ROS documented in this emergency department record has been reviewed and confirmed by me. Those systems with pertinent positive or negative responses have been documented in the HPI. All other systems are other negative and/or noncontributory. PHYSICAL EXAM: General Impression: Alert and oriented x3, not in acute distress HEENT: Normocephalic atraumatic, extra-ocular movements intact, pupils equal and reactive to light bilaterally, mucous membranes moist. Cardiovascular: Heart regular rate and rhythm Chest: Able to complete full sentences, no retractions, no tachypnea Abdomen: abdomen soft, non-tender, non-distended, no organomegaly Musculoskeletal: Pulses present and equal in all extremities, no peripheral edema Motor: no focal deficits noted Neurological: CN II-XII grossly intact, no focal motor or sensory deficits noted Skin: Intact with no visualized rashes Psych: Normal affect and mood ED course: 56-year-old female sent in from primary care doctor for headache and elevated ESR concerning for giant cell arteritis. Patient does not have any classic symptoms of this patient does have bitemporal squeezing headache that she reports is severe. Patient is well-appearing. vital signs upon arrival are within acceptable limits. Chart review was performed. Patient has computed tomography scan of her head on 06/21/2021 showing no acute processes. There is no confirmation of use or low from recently. Most recent ESR level was from 07/06/2015. Patient given 1000 g of methylprednisolone. Patient be admitted with consultation to neurology and vascular surgery. Patient mid to [facility]. - Related Data Home Medications Medication Instructions Recorded Confirmed Gabapentin [Neurontin] 800 mg PO QID 03/23/15 06/22/21 Sertraline [Zoloft] 100 mg PO DAILY 03/23/15 06/22/21 Gammagard Ivig 45 gram IV. TH 12/11/18 06/22/21 Nortriptyline [Pamelor] 50 mg PO HS 12/11/18 06/22/21 Omeprazole [PriLOSEC] 40 mg PO DAILY 12/11/18 06/22/21 Levothyroxine Sodium 150 mcg PO DAILY 11/11/19 06/22/21 Atorvastatin [Lipitor] 40 mg PO DAILY 06/22/21 06/22/21 Dulaglutide [Trulicity] 1.5 mg SQ BAUER 06/22/21 06/22/21 Montelukast [Singulair] 10 mg PO HS 06/22/21 06/22/21 Xolair 225mg 225 mg SQ Q14D 06/22/21 06/22/21 busPIRone HCl [Buspar] 5 mg PO BID 06/22/21 06/22/21 Allergies Allergy/AdvReac Type Severity Reaction Status Date / Time adhesive Allergy Rash/Hives/ Verified 06/22/21 15:21 ITCHING clindamycin Allergy Unknown Verified 06/22/21 15:21 amoxicillin AdvReac Severe YEAST Verified 06/22/21 15:21 INFECTION Review of Systems ROS Statement: Those systems with pertinent positive or pertinent negative responses have been documented in the HPI. ROS Other: All systems not noted in ROS Statement are negative. Past Medical History Past Medical History: Asthma, Diabetes Mellitus, Deep Vein Thrombosis (DVT), GERD/Reflux, Hyperlipidemia, Neurologic Disorder, Sleep Apnea/CPAP/BIPAP, Syncope, Thyroid Disorder Additional Past Medical History / Comment(s): Migraines, MMN (MULTIFOCAL MOTOR NEUOPATHY) NEUROPATHY LEFT ARM AND HAND, CONTRACTURES FINGERS LEFT HAND, MILD LEFT SIDED FACIAL DROOP , WEAKNESS IN LEGS, MUSCLE WASTING LEFT ARM, LOSING USE OF LEFT ARM, SEASONAL ALLERGIES, USES C-PAP MACHINE, GROWTH ON THYROID, OCC ASIONAL COUGHING FITS WHEN EATING, PORT-A-CATH. History of Any Multi-Drug Resistant Organisms: None Reported Past Surgical History: Section, Orthopedic Surgery, Tubal Ligation Additional Past Surgical History / Comment(s): Oral surgery, left carpal tunnel, left foot bone removed left 5th toe-screw in left 4th toe, nerve biopsy left arm proximal sensory nerve, LT ARM ULNAR NERVE SX. PICC LINE X2 AND REMOVED, PORT-A-CATH, left hand baby finger reconstruction. Past Anesthesia/Blood Transfusion Reactions: Family History of Problems w/ Anesthesia, Motion Sickness Additional Past Anesthesia/Blood Transfusion Reaction / Comment(s): DAD WAS CONFUSED, SLOW TO RESPOND-. Past Psychological History: Anxiety, Depression Smoking Status: Current every day smoker Past Alcohol Use History: Occasional Past Drug Use History: None Reported - Past Family History Mother Family Medical History: No Reported History Father Additional Family Medical History / Comment(s): PERIPHERAL VASCULAR DX General Exam Limitations: no limitations Course Vital Signs 06/22/21 14:37 Temperature 97.8 F Pulse Rate 104 H Respiratory 20 Rate Blood Pressure 144/75 O2 Sat by Pulse 98 Oximetry Disposition Clinical Impression: Temporal arteritis Disposition: ADMITTED IP TO THIS HOSP Condition: Fair Referrals: Ana Rodríguez MD [Primary Care Provider] - 1-2 days
[2021-06-22] MEDS ORDERED: NALOXONE 0.4 MG/ML 1 ML VIAL IV PRN (15:50)
[2021-06-22] MEDS ORDERED: methylPREDNISolone SOD SUCCI 125 MG/2 ML VIAL IV STA (15:50)
[2021-06-22 16:21] LABS: African American GFR (CKD) 82 (>60 ml/min/1.73 sqM); Anion Gap 4 mmol/L; Blood Urea Nitrogen 12 mg/dL (7-17); C Reactive Protein <0.5 mg/dL (<1.0); Calcium 9.2 mg/dL (8.4-10.2); Carbon Dioxide 33 mmol/L (22-30); Chloride 100 mmol/L (98-107); Glucose 98 mg/dL (74-99); Non-African American GFR(CKD) 71 (>60 ml/min/1.73 sqM); Potassium 3.8 mmol/L (3.5-5.1); Sodium 137 mmol/L (137-145)
[2021-06-22] MEDS: SODIUM CHLORIDE 0.9% 1,000 ML IV SCH (16:31)
[2021-06-22] MEDS: HYDROcodone/APAP 10-325MG 1 EACH TAB PO PRN (18:52)
[2021-06-23] MEDS: HYDROcodone/APAP 10-325MG 1 EACH TAB PO PRN (10:16)
--- NOTE | 2021-06-23 11:30 | P.GSCN ---
History of Present Illness Consult date: 06/23/21 Reason for Consult: Headache, possible temporal artery biopsy Requesting physician: Beatrice Dc History of present illness: This is a pleasant 56-year-old female who presented to the emergency department sent in from her primary care physician for complaints of a headache with elevated sed rate. She has multiple comorbidities including asthma, diabetes mellitus, history of DVT, GERD, hyperlipidemia, multifocal motor neuropathy, sleep apnea, and thyroid disorder. Patient states the headache began about 1 week, is been mostly continuous. She states it is bilateral temporal region. Left greater than right. She had no outpatient steroids as she was concerned about weight gain. She was given a dose of Solu-Medrol in the emergency department. She had a CT of the brain 06/21/2021 which reported age-related atrophic and chronic small vessel ischemic change without acute intracranial process seen at this time. She denies any previous history of migraines or chronic headaches. She denies any photophobia, does state that yesterday the noise in the emergency department did feel like it made it worse. She denies any associated nausea or vomiting. Patient has a left chest wall port to receive IVIG weekly for her multifocal motor neuropathy. Patient states headache is more of a dull pressure. States it was very intense in the beginning and it woke her up about a week ago has improved mildly, but still continual discomfort. Review of Systems A 14 point review of systems was completed all pertinent positives and negatives as stated in the HPI Past Medical History Past Medical History: Asthma, Diabetes Mellitus, Deep Vein Thrombosis (DVT), GERD/Reflux, Hyperlipidemia, Neurologic Disorder, Sleep Apnea/CPAP/BIPAP, Syncope, Thyroid Disorder Additional Past Medical History / Comment(s): Migraines, MMN (MULTIFOCAL MOTOR NEUOPATHY) NEUROPATHY LEFT ARM AND HAND, CONTRACTURES FINGERS LEFT HAND, WEAKNESS IN LEGS, SEASONAL ALLERGIES, USES C-PAP MACHINE, GROWTH ON THYROID, PORT-A-CATH for IVIG infusions. History of Any Multi-Drug Resistant Organisms: None Reported Past Surgical History: Section, Orthopedic Surgery, Tubal Ligation Additional Past Surgical History / Comment(s): Oral surgery, left carpal tunnel, left foot bone removed left 5th toe-screw in left 4th toe, nerve biopsy left arm proximal sensory nerve, LT ARM ULNAR NERVE SX. PICC LINE X2 AND REMOVED, PORT-A-CATH, left hand baby finger reconstruction. Past Anesthesia/Blood Transfusion Reactions: Family History of Problems w/ Ane sthesia, Motion Sickness Additional Past Anesthesia/Blood Transfusion Reaction / Comm: DAD WAS CONFUSED, SLOW TO RESPOND-. Past Psychological History: Anxiety, Depression Smoking Status: Current every day smoker Past Alcohol Use History: Occasional Additional Past Alcohol Use History / Comment(s): 4-6 cigarettes a day. Past Drug Use History: None Reported - Past Family History Mother Family Medical History: No Reported History Father Additional Family Medical History / Comment(s): PERIPHERAL VASCULAR DX Medications and Allergies Home Medications Medication Instructions Recorded Confirmed Type Gabapentin [Neurontin] 800 mg PO QID 03/23/15 06/22/21 History Sertraline [Zoloft] 100 mg PO DAILY 03/23/15 06/22/21 History Gammagard Ivig 45 gram IV. TH 12/11/18 06/22/21 History Nortriptyline [Pamelor] 50 mg PO HS 12/11/18 06/22/21 History Omeprazole [PriLOSEC] 40 mg PO DAILY 12/11/18 06/22/21 History Levothyroxine Sodium 150 mcg PO DAILY 11/11/19 06/22/21 History Atorvastatin [Lipitor] 40 mg PO DAILY 06/22/21 06/22/21 History Dulaglutide [Trulicity] 1.5 mg SQ BAUER 06/22/21 06/22/21 History Montelukast [Singulair] 10 mg PO HS 06/22/21 06/22/21 History Xolair 225mg 225 mg SQ Q14D 06/22/21 06/22/21 History busPIRone HCl [Buspar] 5 mg PO BID 06/22/21 06/22/21 History Allergies Allergy/AdvReac Type Severity Reaction Status Date / Time adhesive Allergy Rash/Hives/ Verified 06/22/21 15:21 ITCHING clindamycin Allergy Unknown Verified 06/22/21 15:21 amoxicillin AdvReac Severe YEAST Verified 06/22/21 15:21 INFECTION Surgical - Exam Vital Signs Temp Pulse Resp BP Pulse Ox 97.8 F 104 H 20 144/75 98 06/22/21 14:37 06/22/21 14:37 06/22/21 14:37 06/22/21 14:37 06/22/21 14:37 General appearance: The patient is alert, oriented, appears in no acute distress. HET: Head is normocephalic and atraumatic. Pupils are equal and reactive. Tenderness along the left temporal region. Palpable pulse. Neck: Supple without lymphadenopathy. Trachea midline. Heart: S1 S2. Regular rate and rhythm. Lungs: Clear to auscultation bilaterally. Abdomen: Soft, nontender, nondistended. Extremities: Normal skin color and turgor. No cyanosis, rash, ulceration, clubbing, or edema. Palpable radial pulse bilaterally. Neurological: No focal deficits. Alert and oriented 3. Results - Labs 06/22/21 16:03 Abnormal Lab Results - Last 24 Hours (Table) 06/22/21 06/22/21 Range/Units 16:03 16:03 ESR 66 H (0-20) mm/hr Carbon Dioxide 33 H (22-30) mmol/L Diabetes panel 06/22/21 Range/Units 16:03 Sodium 137 (137-145) mmol/L Potassium 3.8 (3.5-5.1) mmol/L Chloride 100 (98-107) mmol/L Carbon Dioxide 33 H (22-30) mmol/L BUN 12 (7-17) mg/dL Creatinine 0.92 (0.52-1.04) mg/dL Glucose 98 (74-99) mg/dL Calcium 9.2 (8.4-10.2) mg/dL Calcium panel 06/22/21 Range/Units 16:03 Calcium 9.2 (8.4-10.2) mg/dL Pituitary panel 06/22/21 Range/Units 16:03 Sodium 137 (137-145) mmol/L Potassium 3.8 (3.5-5.1) mmol/L Chloride 100 (98-107) mmol/L Carbon Dioxide 33 H (22-30) mmol/L BUN 12 (7-17) mg/dL Creatinine 0.92 (0.52-1.04) mg/dL Glucose 98 (74-99) mg/dL Calcium 9.2 (8.4-10.2) mg/dL Adrenal panel 06/22/21 Range/Units 16:03 Sodium 137 (137-145) mmol/L Potassium 3.8 (3.5-5.1) mmol/L Chloride 100 (98-107) mmol/L Carbon Dioxide 33 H (22-30) mmol/L BUN 12 (7-17) mg/dL Creatinine 0.92 (0.52-1.04) mg/dL Glucose 98 (74-99) mg/dL Calcium 9.2 (8.4-10.2) mg/dL - Imaging Comments: CT of the brain 06/21/2021 which reported age-related atrophic and chronic small vessel ischemic change without acute intracranial process seen at this time Assessment and Plan Assessment: 1. Bilateral temporal headache 2. Elevated ESR 3. History of multifocal motor neuropathy on weekly IVIG Plan: 1. Await recommendations from neurology 2. Continue IV steroids per primary medicine 3. Further recommendations forthcoming per vascular surgeon on timing of temporal artery biopsy which is being requested by primary medicine team Thank you for this consultation, we will continue to follow. The impression and plan of care has been dictated as directed. I performed a history and examination of this patient, discussed the same with the dictator. I agree with the dictator's note ,documented as a scribe. Any additional findings or plans will be noted.
[2021-06-23] MEDS ORDERED: OMALIZUMAB SQ SCH (12:45)
[2021-06-23] MEDS: LEVOTHYROXINE 75 MCG TAB PO SCH (14:12)
[2021-06-23] MEDS: methylPREDNISolone SOD SUCCI 125 MG/2 ML VIAL IV SCH ×2 (14:26→17:58)
[2021-06-23] MEDS: HEPARIN SODIUM,PORCINE/PF 5,000 UNIT/0.5 ML SYRINGE SQ SCH ×2 (14:27→22:39)
[2021-06-23] MEDS: GABAPENTIN 400 MG CAP PO SCH ×3 (14:27→22:53)
[2021-06-23] MEDS: PANTOPRAZOLE 40 MG TABLET PO SCH (14:28)
[2021-06-23] MEDS: SODIUM CHLORIDE 0.9% 1,000 ML IV SCH (14:28)
--- NOTE | 2021-06-23 14:57 | HP ---
HISTORY AND PHYSICAL CHIEF COMPLAINT: Headaches and weakness. HISTORY OF PRESENT ILLNESS: This 56-year-old woman with a past history of asthma, diabetes, history of possible autoimmune disorders, mononeuritis multiplex receiving weekly hemoglobin IVIG being followed by Dr. Ana Rodríguez in the outpatient setting is complaining of severe headache, 10/10 in both temples for the last one week. The patient was found to have ESR more than 100 in the outpatient setting. Dr. Perez discussed the case at length with me over the phone and the patient admitted for direct admission for concerns of temporal arteritis. IV steroids have been initiated. The patient also had a CT scan of the brain which I reviewed personally showed only age-related atrophic changes and small vessel changes. There is no history of fever, rigors or chills at this time. PAST MEDICAL HISTORY: History of mononeuritis multiplex, history of asthma, diabetes mellitus, autoimmune disorders. MEDICATIONS: Home medications include BuSpar, Xolair. Dose, and other medications also reviewed. ALLERGIES: noted FAMILY HISTORY: History of peripheral vascular disease. SOCIAL HISTORY: History of smoking. REVIEW OF SYSTEMS: 14-point review is negative except as mentioned earlier. PHYSICAL EXAMINATION: Pulse 92, blood pressure 111/74, respiration 18. HEENT: Conjunctivae normal. Oral mucosa moist. NECK is no jugular venous distention. No carotid bruit. No lymph node enlargement. CARDIOVASCULAR: S1-S2 muffled. No S3, no S4. RESPIRATORY: Breath sounds diminished in the bases. No rhonchi. No crackles. ABDOMEN: Soft, obese, nontender. LEGS: No edema. No swelling. NERVOUS SYSTEM: Higher functions as mentioned earlier. No focal motor or sensory deficits. LYMPHATICS: No lymph nodes palpable in the neck, axillae or groin. SKIN: No ulcers, no rashes or bleeding. JOINTS: No active deforming arthropathy. Examination of temples revealed tenderness bilateral left more than the right on palpation. LABS: WBC is not available. ESR is 63. ASSESSMENT: 1. Bilateral headaches, left more than the right, possible temporal arteritis. 2. High ESR. 3. History of autoimmune disorders. 4. History of mononeuritis multiplex. 5. Asthma. 6. Diabetes mellitus, type 2. 7. History of deep vein thrombosis. RECOMMENDATIONS AND DISCUSSION: This 56-year-old woman who presented with multiple complex medical issues, we will initiate the patient on empiric IV steroids and also obtain a temporal artery biopsy by vascular surgery. Neurology will be consulted. Home medication will be continued. Prognosis extremely guarded because of multiple complex medical issues as mentioned earlier. Discussed with the patient at length. A copy of this dictation will be forwarded to Dr. Ana Rodríguez who is the primary physician. I would also obtain a rheumatology workup also. Also recommend rheumatology consultation and further workup as well. Prognosis guarded. MMODL / IJN: [id number] / SHOLA
[2021-06-23 17:24] LABS: Glucose,Whole Blood 177 mg/dL (75-99)
[2021-06-23] MEDS: INSULIN ASPART (NovoLOG) 100 UNIT/ML VIAL SQ SCH ×2 (17:58→22:54)
--- NOTE | 2021-06-23 19:56 | P.CNNES ---
History of Present Illness Consult date: 06/23/21 Requesting physician: Alphonse Christian Reason for Consult: Headache, elevated ESR History of Present Illness: Patient is a 56-year-old female came to the hospital yesterday at 2:33 PM for headaches. Patient states that she woke up last 06/17/2021 with a headache. It involved bitemporal region, ranges between 5-8 on a scale of 1-10. It has not gone away at all. It is an aching pressure dull headache, which lessens its intensity, but does not go away. Besides the bitemporal component which is most intense, she also feels like she is a hat on, as if the whole head is in the dinkey skinner. Everything feels muffled in her head. She denies any nausea or vomiting. She is sensitive to noise, and once light was bothering her. Otherwise light does not bother her. She denies any neck stiffness. At present the headache is 6/10. The most pain is in the left episcopal, between the left eye and the left ear. She also feels pressure in the left eye, but no visual disturbance. Patient denies any fever or chills. Only one time she broke out in sweat last night which is unusual. She denies any changes in her weight lately. 6 years ago she was placed on steroids and she did gain weight at that time but nothing now. She denies any jaw claudication, or any shoulder or pelvic girdle pain. Patient underwent some blood testing and was found to have elevated ESR, therefore is referred to the ER for further evaluation. Her potassium was also high. Patient states that she does not have any history of headaches in the past. She may get a sinus pressure headache about once a month involving the frontal and maxillary region. It never lasts more than 2 hours. Her ESR is 66, Chem-7 is normal, calcium 9.2 magnesium 2.0 and CRP is <0.5 patient's last hemoglobin A1c 5.7 on 05/12/2020. Her B12 was normal 2000 151. Folate 24. TFTs normal. LAURA is positive. Titers of 320, nucleolar and speckled pattern. GRAVITY FLOW IRRIGATOR antibodies negative, dsDNA positive. Histone antibodies negative, mitochondrial antibodies +31.9/20. TPO also elevated 1877. Smooth muscle antibodies negative. HIV, hepatitis panel negative. Patient had a computed tomography scan of head performed outpatient on 06/21/2021, which was normal. I personally reviewed CT head and agree with the findings. The visualized paranasal sinuses are clear. There is evidence of an arachnoid cyst involving the right anterior temporal region in the middle cranial fossa. Patient takes Trulicity, Singulair, Lipitor 40 mg, BuSpar 5 mg twice a day, levothyroxine 150 g, Gammagard IVIG, omeprazole, nortriptyline 50 mg at bedtime, gabapentin 800 mg 4 times a day, sertraline 100 mg daily, Xoir 225 mg every 14 days. Patient has history of diabetes for last 2 years. Patient also has been diagnosed with multifocal motor neuropathy at [facility] in [place]. Her symptoms started in 2012 and after the diagnosis, she was started on IVIG 45 g every week for last 3 years. Patient denies any side effects of IVIG. Denies any headaches. She does not take any hormones. The last time she saw an eye doctor was about 6 months ago and everything was fine. Patient has smoked 4-6 cigarettes per day for last 5-6 years. Review of Systems As mentioned in HPI. All other 14 point of review systems reviewed are unr emarkable. She does have left hand weakness from multifocal motor neuropathy. Past Medical History Past Medical History: Asthma, Diabetes Mellitus, Deep Vein Thrombosis (DVT), GERD/Reflux, Hyperlipidemia, Neurologic Disorder, Sleep Apnea/CPAP/BIPAP, Syncope, Thyroid Disorder Additional Past Medical History / Comment(s): Migraines, MMN (MULTIFOCAL MOTOR NEUOPATHY) NEUROPATHY LEFT ARM AND HAND, CONTRACTURES FINGERS LEFT HAND, WEAKNE SS IN LEGS, SEASONAL ALLERGIES, USES C-PAP MACHINE, GROWTH ON THYROID, PORT-A-CATH for IVIG infusions. History of Any Multi-Drug Resistant Organisms: None Reported Past Surgical History: Section, Orthopedic Surgery, Tubal Ligation Additional Past Surgical History / Comment(s): Oral surgery, left carpal tunnel, left foot bone removed left 5th toe-screw in left 4th toe, nerve biopsy left arm proximal sensory nerve, LT ARM ULNAR NERVE SX. PICC LINE X2 AND REMOVED, PORT-A-CATH, left hand baby finger reconstruction. Past Anesthesia/Blood Transfusion Reactions: Family History of Problems w/ Anesthesia, Motion Sickness Additional Past Anesthesia/Blood Transfusion Reaction / Comment(s): DAD WAS CONFUSED, SLOW TO RESPOND-. Past Psychological History: Anxiety, Depression Smoking Status: Current every day smoker Past Alcohol Use History: Occasional Additional Past Alcohol Use History / Comment(s): 4-6 cigarettes a day. Past Drug Use History: None Reported - Past Family History Mother Family Medical History: No Reported History Father Additional Family Medical History / Comment(s): PERIPHERAL VASCULAR DX Medications and Allergies Home Medications Medication Instructions Recorded Confirmed Type Gabapentin [Neurontin] 800 mg PO QID 03/23/15 06/22/21 History Sertraline [Zoloft] 100 mg PO DAILY 03/23/15 06/22/21 History Gammagard Ivig 45 gram IV. TH 12/11/18 06/22/21 History Nortriptyline [Pamelor] 50 mg PO HS 12/11/18 06/22/21 History Omeprazole [PriLOSEC] 40 mg PO DAILY 12/11/18 06/22/21 History Levothyroxine Sodium 150 mcg PO DAILY 11/11/19 06/22/21 History Atorvastatin [Lipitor] 40 mg PO DAILY 06/22/21 06/22/21 History Dulaglutide [Trulicity] 1.5 mg SQ BAUER 06/22/21 06/22/21 History Montelukast [Singulair] 10 mg PO HS 06/22/21 06/22/21 History Xolair 225mg 225 mg SQ Q14D 06/22/21 06/22/21 History busPIRone HCl [Buspar] 5 mg PO BID 06/22/21 06/22/21 History Allergies Allergy/AdvReac Type Severity Reaction Status Date / Time adhesive Allergy Rash/Hives/ Verified 06/22/21 15:21 ITCHING clindamycin Allergy Unknown Verified 06/22/21 15:21 amoxicillin AdvReac Severe YEAST Verified 06/22/21 15:21 INFECTION Physical Examination - Vital Signs Vital Signs: Vital Signs Temp Pulse Pulse Resp BP BP Pulse Ox 06/23/21 04:30 97.6 F 92 18 111/74 94 L 06/22/21 23:30 97.8 F 94 18 172/93 97 06/22/21 20:00 90 18 153/93 97 06/22/21 17:00 86 18 154/92 95 06/22/21 15:40 101 H 18 136/71 95 06/22/21 14:37 97.8 F 104 H 20 144/75 98 Intake and Output 06/22/21 06/23/21 06/23/21 22:59 06:59 14:59 Intake Total 240 Balance 240 Intake: Oral 240 Other: # Voids 1 1 # Bowel Movements 1 Weight 104.326 kg Patient is a middle aged female, mild to moderately overweight, in no acute distress. Patient is alert awake oriented to time place and person. Speech and language functions are normal. Attention, concentration and fund of knowledge is adequate. On cranial nerve examination, pupils are equal, round and reacting to light, visual sterling are full on confrontation, with no neglect on double simultaneous stimulation. Her extraocular muscles are intact with no nystagmus. Face is symmetric, tongue protrudes to the midline. Palatal elevation and sensation normal, hearing and shoulder shrug normal, facial sensation normal. Shoulder shrug normal. On muscle strength testing, there is no pronator drift and the strength is normal in arms and legs distally and proximally, except dinkey skinner, which is 5-on the right, 4+ left. Deep tendon reflexes are (right/left) biceps 1+/2, brachioradialis 1/2, knees 2/2, ankles 1+/1+ and plantars downgoing bilaterally. Sensory to touch is equal with no neglect. Cerebellar function showed no ataxia for [id number] testing. No dysdiadochokinesia. Tone of muscles normal. Bulk of muscles is decreased in the left hand with evidence of some atrophy. Gait normal. On general examination, there is no carotid bruit or murmur, S1-S2 audible. Abdomen is soft nontender. Bowel sounds present. No organomegaly. Chest is clear. Peripheral pulses are present. No edema. Results - Laboratory Findings CBC and BMP: 06/22/21 16:03 Abnormal Lab Findings: Abnormal Labs 06/22/21 06/22/21 16:03 16:03 ESR 66 H Carbon Dioxide 33 H Assessment and Plan Assessment: * New-onset bitemporal headache, with some global component of 6 days' duration, unclear etiology. There are no vascular features. Patient denies any jaw claudication, any weight loss, fever. Patient has abnormal rheumatologic workup in the past (LAURA and dsDNA), and her ESR is elevated, which raises concern about possibility of temporal arteritis. However her body habitus raises concern for pseudotumor cerebri. * History of multifocal motor neuropathy, currently receiving IVIG 45 g every week for last 3 years. * History of positive LAURA and dsDNA. * Diabetes, well controlled, last A1c 5.7 on 05/12/2020. * Obesity Plan: * We will rule out pseudotumor cerebri. Patient will undergo lumbar puncture to evaluate for opening pressure. Spinal fluid will be sent for analysis to rule out viral meningitis. * MRV of the brain rule out venous sinus thrombosis, given patient receiving weekly IVIG. * Patient may need ophthalmology consultation as outpatient rule out papilledema. * Vascular surgery consultation has also been initiated for temporal artery biopsy. I would recommend the left side, as her symptoms are more on the left. * Patient has been given methylprednisolone 1 g IV 1 dose followed by 60 mg IV every 6 hours. * Dr. Lakhani will be covering neurology service over the weekend. Thank you for the consult.
--- NOTE | 2021-06-23 20:16 | MR ---
EXAMINATION TYPE: MR venography head wo con DATE OF EXAM: 06/23/2021 COMPARISON: CT brain 2 days earlier. HISTORY: New onset BROWNING, evaluate for pseudotumor cerebri. Standard multiplanar, multisequence MRI departmental protocol Multiplanar, multisequence images of the brain were acquired without contrast. There are 2-D and 3-D reconstructive images created on an independent workstation and reviewed. FINDINGS: There is patent superior sagittal sinus seen and straight sinus with patent internal cerebr al vein draining into the straight sinus with right transverse and sagittal sinus. Nonvisualized left transverse and sagittal sinuses without suspicious hyperdense material on CT. Patent draining right internal jugular vein. IMPRESSION: Strongly favor asymmetric prominent right sagittal and transverse sinus, thrombosed left- sided venous structures unlikely but not excluded. Consider direct catheter angiogram to further eval uate.
[2021-06-23] MEDS ORDERED: LIDOCAINE 2% (PF) 20 MG/ML 5 ML VIAL SQ ONE (21:50)
[2021-06-23] MEDS ORDERED: fentaNYL (PF) 50 MCG/ML 2 ML AMP IVP ONE (21:55)
--- NOTE | 2021-06-23 22:12 | P.PCN ---
Date of Procedure: 06/23/21 Procedure(s) Performed: Preoperative diagnosis: 1-pseudotumor cerebri. 2-temporal arteritis. Post operative diagnoses: Same as preop diagnosis. Procedure= lumbar puncture Anesthesia local infiltration with lidocaine 1% 2 mL. and fentanyl 50 g IV Condition: stable Complication: none. Description of the procedure procedure risk and benefits discussed with the patient , consent signed. Patient and the procedure area placed in lateral position ( right side down ), back prepped with chlorhexidine 3 times been local infiltration of the skin and subcutaneous tissue with lidocaine 2% 5 mL for skin and subcu interstitial frustrations at L4 5 levels then 20-gauge Quincke-type needle advanced slowly at L4- 5 interlaminar space there was positive cerebrospinal fluid which was clear, no heme, no paresthesia ,total of 20 ML of clear cerebrospinal fluid collected in 4 different tubes , then the needle rem elijah and a Band-Aid applied and patient tolerated the procedure well without any complications. Opening pressure= 41 cm of water ( right lateral decubitus position ). Closing pressure= 22 cm of water (right lateral decubitus position ) after removal of 20 mL of clear cerebrospinal fluid.
[2021-06-23 22:51] LABS: Glucose,Whole Blood 188 mg/dL (75-99)
[2021-06-23] MEDS: busPIRone HCl 5 MG TAB PO SCH (22:53)
[2021-06-23] MEDS: NORTRIPTYLINE 25 MG CAP PO SCH (22:53)
[2021-06-23] MEDS: MONTELUKAST 10 MG TAB PO SCH (22:53)
[2021-06-24] MEDS: methylPREDNISolone SOD SUCCI 125 MG/2 ML VIAL IV SCH ×4 (00:06→17:56)
[2021-06-24 00:09] LABS: Appearance,CSF Clear; CSF Tube Number 4; CSF Tube Volume 7; Nucleated Cells, CSF 1 u/L (0-5); Red Blood Cell,CSF 1 u/L (0-10)
[2021-06-24 00:27] LABS: Glucose,CSF 125 mg/dL (40-70); Total Protein,CSF 42 mg/dL (12-60)
[2021-06-24] MEDS: LEVOTHYROXINE 75 MCG TAB PO SCH (06:16)
[2021-06-24 07:41] LABS: Glucose,Whole Blood 174 mg/dL (75-99)
[2021-06-24] MEDS ORDERED: NON FORMULARY DRUG (Omeprazole 40 MG Capsule.Dr) PO SCH (09:00)
[2021-06-24] MEDS: INSULIN ASPART (NovoLOG) 100 UNIT/ML VIAL SQ SCH ×4 (09:02→21:27)
[2021-06-24] MEDS: PANTOPRAZOLE 40 MG TABLET PO SCH (09:03)
[2021-06-24] MEDS: HYDROcodone/APAP 10-325MG 1 EACH TAB PO PRN ×2 (09:05→18:02)
--- NOTE | 2021-06-24 09:06 | MR ---
EXAMINATION TYPE: MR brain wo/w con DATE OF EXAM: 06/24/2021 COMPARISON: 06/19/2016 HISTORY: Temporal arteritis, abnormal MRV. TECHNIQUE: Multiplanar, multisequence images of the brain and brainstem is performed without and with IV contras t, utilizing 10 mL intravenous Gadavist . FINDINGS: The ventricles, basal cisterns and sulci over the convexities are within normal limits and there is n o mass effect or shift of midline structures. On the T1-weighted sagittal images midline structures including the craniovertebral junction relation ships are normal with the exception of a partially empty sella. Based on diffusion-weighted imaging, there is no acute ischemic event. Following contrast administration,, there is no pathological enhancement. The posterior fossa including the brainstem, fourth ventricle and cerebellar pontine angles appear no rmal. The intraorbital contents appear normal and symmetric. Visualized paranasal sinuses and mastoid air c ells are well aerated. IMPRESSION: No significant abnormality seen.
[2021-06-24] MEDS: ATORVASTATIN 40 MG TAB PO SCH (09:47)
[2021-06-24] MEDS: busPIRone HCl 5 MG TAB PO SCH ×2 (09:47→21:27)
[2021-06-24] MEDS: SERTRALINE 100 MG TAB PO SCH (09:47)
[2021-06-24] MEDS: GABAPENTIN 400 MG CAP PO SCH ×4 (09:47→21:27)
[2021-06-24] MEDS: HEPARIN SODIUM,PORCINE/PF 5,000 UNIT/0.5 ML SYRINGE SQ SCH ×2 (09:48→21:27)
[2021-06-24 11:21] LABS: Basophils # (A) 0.01 X 10*3/uL (0.00-0.10); Basophils % (A) 0.1 %; Eosinophils # (A) 0 X 10*3/uL (0.04-0.35); Eosinophils % (A) 0 %; HCT 39.3 % (37.2-46.3); HGB 12.7 g/dL (12.0-15.0); Immature Grans, Automated 0.5 %; Lymphocytes # (A) 0.58 X 10*3/uL (0.90-5.00); Lymphocytes % (A) 4.2 %; MCHC 32.3 g/dL (32.0-37.0); MCV 95.9 fL (80.0-97.0); Mean Platelet Volume 10.4 fL (9.5-12.2); Monocytes # (A) 0.26 X 10*3/uL (0.20-1.00); Monocytes % (A) 1.9 %; NRBC Per 100 WBC 0 /100 WBCS (0.0-0.0); Neutrophils # (A) 12.94 X 10*3/uL (1.80-7.70); Neutrophils % (A) 93.3 %; Platelet Count 351 X 10*3/uL (140-440); RDW 12.8 % (11.5-14.5); WBC 13.86 X 10*3/uL (4.50-10.00)
[2021-06-24 11:39] LABS: Albumin 3.9 g/dL (3.8-4.9); Anion Gap 10.2 mmol/L (10.00-18.00); BUN/Creat Ratio 21.89 Ratio (12.00-20.00); Blood Urea Nitrogen 19.7 mg/dL (9.0-27.0); Calcium 9.8 mg/dL (8.7-10.3); Carbon Dioxide 25.8 mmol/L (20.0-27.5); Globulin 3.9 g/dL (1.6-3.3); Magnesium 2.1 mg/dL (1.5-2.4); Non-African American GFR(CKD) 72.5 (60.0-200.0); Potassium 4.3 mmol/L (3.5-5.5); Total Bilirubin 0.3 mg/dL (0.30-1.20); Total Protein 7.8 g/dL (6.2-8.2)
[2021-06-24 11:57] LABS: Glucose,Whole Blood 301 mg/dL (75-99)
--- NOTE | 2021-06-24 12:31 | P.GSCN ---
History of Present Illness Consult date: 06/24/21 Reason for Consult: Temporal arteritis. History of present illness: Patient is a 56-year-old female with multiple medical problems who presented with among other complaints cephalgia. This cephalgia has been ongoing for multiple days and is more pronounced on the left than on the right. It is relatively constant. Concern is expressed for the possibility of temporal arteritis. Past Medical History Past Medical History: Asthma, Diabetes Mellitus, Deep Vein Thrombosis (DVT), GERD/Reflux, Hyperlipidemia, Neurologic Disorder, Sleep Apnea/CPAP/BIPAP, Syncope, Thyroid Disorder Additional Past Medical History / Comment(s): Migraines, MMN (MULTIFOCAL MOTOR NEUOPATHY) NEUROPATHY LEFT ARM AND HAND, CONTRACTURES FINGERS LEFT HAND, WEAKNESS IN LEGS, SEASONAL ALLERGIES, USES C-PAP MACHINE, GROWTH ON THYROID, PORT-A-CATH for IVIG infusions. History of Any Multi-Drug Resistant Organisms: None Reported Past Surgical History: Section, Orthopedic Surgery, Tubal Ligation Additional Past Surgical History / Comment(s): Oral surgery, left carpal tunnel, left foot bone removed left 5th toe-screw in left 4th toe, nerve biopsy left arm proximal sensory nerve, LT ARM ULNAR NERVE SX. PICC LINE X2 AND REMOVED, PORT-A-CATH, left hand baby finger reconstruction. Past Anesthesia/Blood Transfusion Reactions: Family History of Problems w/ Anesthesia, Motion Sickness Additional Past Anesthesia/Blood Transfusion Reaction / Comm: DAD WAS CONFUSED, SLOW TO RESPOND-. Past Psychological History: Anxiety, Depression Smoking Status: Current every day smoker Past Alcohol Use History: Occasional Additional Past Alcohol Use History / Comment(s): 4-6 cigarettes a day. Past Drug Use History: None Reported - Past Family History Mother Family Medical History: No Reported History Father Additional Family Medical History / Comment(s): PERIPHERAL VASCULAR DX Medications and Allergies Home Medications Medication Instructions Recorded Confirmed Type Gabapentin [Neurontin] 800 mg PO QID 03/23/15 06/22/21 History Sertraline [Zoloft] 100 mg PO DAILY 03/23/15 06/22/21 History Gammagard Ivig 45 gram IV. TH 12/11/18 06/22/21 History Nortriptyline [Pamelor] 50 mg PO HS 12/11/18 06/22/21 History Omeprazole [PriLOSEC] 40 mg PO DAILY 12/11/18 06/22/21 History Levothyroxine Sodium 150 mcg PO DAILY 11/11/19 06/22/21 History Atorvastatin [Lipitor] 40 mg PO DAILY 06/22/21 06/22/21 History Dulaglutide [Trulicity] 1.5 mg SQ BAUER 06/22/21 06/22/21 History Montelukast [Singulair] 10 mg PO HS 06/22/21 06/22/21 History Xolair 225mg 225 mg SQ Q14D 06/22/21 06/22/21 History busPIRone HCl [Buspar] 5 mg PO BID 06/22/21 06/22/21 History Allergies Allergy/AdvReac Type Severity Reaction Status Date / Time adhesive Allergy Rash/Hives/ Verified 06/22/21 15:21 ITCHING clindamycin Allergy Unknown Verified 06/22/21 15:21 amoxicillin AdvReac Severe YEAST Verified 06/22/21 15:21 INFECTION Surgical - Exam Osteopathic Statement: *. No significant issues noted on an osteopathic structural exam other than those noted in the History and Physical/Consult. Vital Signs Temp Pulse Resp BP Pulse Ox 97.8 F 104 H 20 144/75 98 06/22/21 14:37 06/22/21 14:37 06/22/21 14:37 06/22/21 14:37 06/22/21 14:37 - General well developed, well nourished, no distress - Eyes PERRL, normal ocular movement - Neck no masses, no bruits, trachea midline, no lymphadectomy, no venous distension thyroid nodule: absent - Respiratory normal expansion, normal respiratory effort, clear to auscultation - Cardiovascular Rhythm: regular - Abdomen Abdomen: soft, non tender (Modest tenderness to palpation along the course of the left temporal artery was identified. The artery itself is soft and I could not palpate any morphologic changes.) Results - Labs 06/24/21 06:38 06/24/21 06:38 Abnormal Lab Results - Last 24 Hours (Table) 06/23/21 06/23/21 06/23/21 Range/Units 13:00 13:23 13:23 WBC (4.50-10.00) X 10*3/uL Immature Gran # (0.00-0.04) X 10*3/uL Neutrophils # (1.80-7.70) X 10*3/uL Lymphocytes # (0.90-5.00) X 10*3/uL Eosinophils # (0.04-0.35) X 10*3/uL ESR 64 H (0-20) mm/hr BUN/Creatinine Ratio (12.00-20.00) Ratio Glucose (70-110) mg/dL POC Glucose (mg/dL) (75-99) mg/dL Globulin (1.6-3.3) g/dL Albumin/Globulin Ratio (1.60-3.17) g/dL CSF Glucose 125 H (40-70) mg/dL LAURA Screen POSITIVE A (NEGATIVE) 06/23/21 06/23/21 06/24/21 Range/Units 17:22 22:49 06:38 WBC 13.86 H (4.50-10.00) X 10*3/uL Immature Gran # 0.07 H (0.00-0.04) X 10*3/uL Neutrophils # 12.94 H (1.80-7.70) X 10*3/uL Lymphocytes # 0.58 L (0.90-5.00) X 10*3/uL Eosinophils # 0 L (0.04-0.35) X 10*3/uL ESR (0-20) mm/hr BUN/Creatinine Ratio (12.00-20.00) Ratio Glucose (70-110) mg/dL POC Glucose (mg/dL) 177 H 188 H (75-99) mg/dL Globulin (1.6-3.3) g/dL Albumin/Globulin Ratio (1.60-3.17) g/dL CSF Glucose (40-70) mg/dL LAURA Screen (NEGATIVE) 06/24/21 06/24/21 06/24/21 Range/Units 06:38 07:40 11:56 WBC (4.50-10.00) X 10*3/uL Immature Gran # (0.00-0.04) X 10*3/uL Neutrophils # (1.80-7.70) X 10*3/uL Lymphocytes # (0.90-5.00) X 10*3/uL Eosinophils # (0.04-0.35) X 10*3/uL ESR (0-20) mm/hr BUN/Creatinine Ratio 21.89 H (12.00-20.00) Ratio Glucose 192 H (70-110) mg/dL POC Glucose (mg/dL) 174 H 301 H (75-99) mg/dL Globulin 3.9 H (1.6-3.3) g/dL Albumin/Globulin Ratio 1.00 L (1.60-3.17) g/dL CSF Glucose (40-70) mg/dL LAURA Screen (NEGATIVE) Microbiology - Last 24 Hours (Table) 06/23/21 13:00 CSF Gram Stain - Preliminary Cerebral Spinal Fluid CSF Culture - Preliminary Diabetes panel 06/24/21 Range/Units 06:38 Sodium 135 (135-145) mmol/L Potassium 4.3 (3.5-5.5) mmol/L Chloride 99 (96-109) mmol/L Carbon Dioxide 25.8 (20.0-27.5) mmol/L BUN 19.7 (9.0-27.0) mg/dL Creatinine 0.9 (0.6-1.5) mg/dL Glucose 192 H (70-110) mg/dL Calcium 9.8 (8.7-10.3) mg/dL AST 17 (13-35) U/L ALT 25 (8-44) U/L Alkaline Phosphatase 84 (41-126) U/L Total Protein 7.8 (6.2-8.2) g/dL Albumin 3.9 (3.8-4.9) g/dL Calcium panel 06/24/21 Range/Units 06:38 Calcium 9.8 (8.7-10.3) mg/dL Albumin 3.9 (3.8-4.9) g/dL Pituitary panel 06/24/21 Range/Units 06:38 Sodium 135 (135-145) mmol/L Potassium 4.3 (3.5-5.5) mmol/L Chloride 99 (96-109) mmol/L Carbon Dioxide 25.8 (20.0-27.5) mmol/L BUN 19.7 (9.0-27.0) mg/dL Creatinine 0.9 (0.6-1.5) mg/dL Glucose 192 H (70-110) mg/dL Calcium 9.8 (8.7-10.3) mg/dL Adrenal panel 06/24/21 Range/Units 06:38 Sodium 135 (135-145) mmol/L Potassium 4.3 (3.5-5.5) mmol/L Chloride 99 (96-109) mmol/L Carbon Dioxide 25.8 (20.0-27.5) mmol/L BUN 19.7 (9.0-27.0) mg/dL Creatinine 0.9 (0.6-1.5) mg/dL Glucose 192 H (70-110) mg/dL Calcium 9.8 (8.7-10.3) mg/dL Total Bilirubin 0.30 (0.30-1.20) mg/dL AST 17 (13-35) U/L ALT 25 (8-44) U/L Alkaline Phosphatase 84 (41-126) U/L Total Protein 7.8 (6.2-8.2) g/dL Albumin 3.9 (3.8-4.9) g/dL - Imaging Additional studies: MRI results reviewed. Assessment and Plan Assessment: Possible temporal arteritis. Plan: Elective temporal artery biopsy Time with Patient: Less than 30
[2021-06-24 17:16] LABS: Glucose,Whole Blood 218 mg/dL (75-99)
--- NOTE | 2021-06-24 20:55 | PN ---
PROGRESS NOTE DATE OF SERVICE: 06/24/2021 This 56-year-old woman was admitted with significant headaches and elevated ESR is being evaluated for temporal arteritis. She is started empirically on steroids. The patient also had an MRV and MRI per neurology. No chest pain, palpitations. PHYSICAL EXAMINATION: Pulse is 89, blood pressure 124/70, respiration 18. CHEST: Clear to auscultation. CARDIOVASCULAR: S1/S2 normal. ABDOMEN: Soft, nontender. NERVOUS SYSTEM: No focal deficits. On examination of the religious there is tenderness present, especially on the left temporal artery area. LABS: WBC 13.8. ASSESSMENT: 1. Bilateral headaches, left more than right. Possible acute temporal arteritis. 2. High ESR. 3. History of autoimmune disorder. 4. History of mononeuritis multiplex. 5. Asthma. 6. Diabetes mellitus, type 2. 7. History of DVT. RECOMMENDATION: Recommend to continue current management. Continue steroids. Follow closely neurology. Follow closely with Vascular Surgery. Possible temporal artery biopsy. Dermatology evaluation. Further recommendations to follow. Prognosis guarded. Lumbar puncture report is awaited. LAURA is positive. MMODL / IJN: [id number] /
[2021-06-24 21:19] LABS: Glucose,Whole Blood 246 mg/dL (75-99)
[2021-06-24] MEDS: MONTELUKAST 10 MG TAB PO SCH (21:27)
[2021-06-24] MEDS: NORTRIPTYLINE 25 MG CAP PO SCH (21:29)
[2021-06-25] MEDS: HYDROcodone/APAP 10-325MG 1 EACH TAB PO PRN ×3 (00:01→17:59)
[2021-06-25] MEDS: methylPREDNISolone SOD SUCCI 125 MG/2 ML VIAL IV SCH ×4 (00:01→17:58)
[2021-06-25] MEDS: LEVOTHYROXINE 75 MCG TAB PO SCH (05:55)
[2021-06-25 07:28] LABS: Glucose,Whole Blood 204 mg/dL (75-99)
[2021-06-25] MEDS: GABAPENTIN 400 MG CAP PO SCH ×4 (07:51→21:28)
[2021-06-25] MEDS: INSULIN ASPART (NovoLOG) 100 UNIT/ML VIAL SQ SCH ×4 (07:51→21:29)
[2021-06-25] MEDS: PANTOPRAZOLE 40 MG TABLET PO SCH (07:51)
[2021-06-25] MEDS: HEPARIN SODIUM,PORCINE/PF 5,000 UNIT/0.5 ML SYRINGE SQ SCH ×2 (07:51→21:29)
[2021-06-25] MEDS: SERTRALINE 100 MG TAB PO SCH (07:51)
[2021-06-25] MEDS: busPIRone HCl 5 MG TAB PO SCH ×2 (07:51→21:28)
[2021-06-25] MEDS: ATORVASTATIN 40 MG TAB PO SCH (07:51)
[2021-06-25] MEDS ORDERED: NON FORMULARY DRUG (Dulaglutide [Trulicity] 1.5 MG/0.5 ML Each) SQ SCH (09:00)
--- NOTE | 2021-06-25 09:38 | P.PN ---
Subjective Progress Note Date: 06/25/21 No new complaints/issues have arisen. Objective - Vital Signs Vital signs: Vital Signs Temp 97.9 F 06/25/21 05:00 Pulse 72 06/25/21 05:00 Resp 20 06/25/21 05:00 BP 131/79 06/25/21 05:00 Pulse Ox 95 06/25/21 05:00 Intake & Output 06/24/21 06/25/21 06/25/21 17:59 06:59 18:59 Intake Total Output Total Balance Intake: IV saline flush Output: Urine Other: Voiding Method # Voids - Labs CBC & Chem 7: 06/24/21 06:38 06/24/21 06:38 Labs: Abnormal Lab Results - Last 24 Hours (Table) 06/24/21 06/24/21 06/24/21 Range/Units 06:38 06:38 11:56 WBC 13.86 H (4.50-10.00) X 10*3/uL Immature Gran # 0.07 H (0.00-0.04) X 10*3/uL Neutrophils # 12.94 H (1.80-7.70) X 10*3/uL Lymphocytes # 0.58 L (0.90-5.00) X 10*3/uL Eosinophils # 0 L (0.04-0.35) X 10*3/uL BUN/Creatinine Ratio 21.89 H (12.00-20.00) Ratio Glucose 192 H (70-110) mg/dL POC Glucose (mg/dL) 301 H (75-99) mg/dL Globulin 3.9 H (1.6-3.3) g/dL Albumin/Globulin Ratio 1.00 L (1.60-3.17) g/dL 06/24/21 06/24/21 06/25/21 Range/Units 17:14 21:18 07:26 WBC (4.50-10.00) X 10*3/uL Immature Gran # (0.00-0.04) X 10*3/uL Neutrophils # (1.80-7.70) X 10*3/uL Lymphocytes # (0.90-5.00) X 10*3/uL Eosinophils # (0.04-0.35) X 10*3/uL BUN/Creatinine Ratio (12.00-20.00) Ratio Glucose (70-110) mg/dL POC Glucose (mg/dL) 218 H 246 H 204 H (75-99) mg/dL Globulin (1.6-3.3) g/dL Albumin/Globulin Ratio (1.60-3.17) g/dL Microbiology - Last 24 Hours (Table) 06/23/21 13:00 CSF Gram Stain - Preliminary Cerebral Spinal Fluid CSF Culture - Preliminary Assessment and Plan Plan: Patient is scheduled for left temporal artery biopsy tomorrow June 26. All questions were answered patient's satisfaction. Time with Patient: Less than 30
[2021-06-25 11:43] LABS: Basophils # (A) 0.01 X 10*3/uL (0.00-0.10); Basophils % (A) 0.1 %; Eosinophils # (A) 0 X 10*3/uL (0.04-0.35); Eosinophils % (A) 0 %; HCT 39.4 % (37.2-46.3); HGB 12.3 g/dL (12.0-15.0); Immature Grans, Automated 1.8 %; Lymphocytes # (A) 0.65 X 10*3/uL (0.90-5.00); Lymphocytes % (A) 5.4 %; MCH 30.1 pg (27.0-32.0); MCHC 31.2 g/dL (32.0-37.0); MCV 96.6 fL (80.0-97.0); Mean Platelet Volume 10.4 fL (9.5-12.2); Monocytes # (A) 0.23 X 10*3/uL (0.20-1.00); Monocytes % (A) 1.9 %; NRBC Per 100 WBC 0 /100 WBCS (0.0-0.0); Neutrophils # (A) 11.01 X 10*3/uL (1.80-7.70); Neutrophils % (A) 90.8 %; Platelet Count 328 X 10*3/uL (140-440); RBC 4.08 X 10*6/uL (4.10-5.20); RDW 12.8 % (11.5-14.5); WBC 12.12 X 10*3/uL (4.50-10.00)
[2021-06-25 11:53] LABS: African American GFR (CKD) 102.4 (60.0-200.0); Albumin 3.7 g/dL (3.8-4.9); Albumin/Globulin Ratio 0.99 (1.60-3.17); Anion Gap 9.4 mmol/L (10.00-18.00); BUN/Creat Ratio 24.35 Ratio (12.00-20.00); Blood Urea Nitrogen 18.6 mg/dL (9.0-27.0); Calcium 9.8 mg/dL (8.7-10.3); Carbon Dioxide 27.2 mmol/L (20.0-27.5); Globulin 3.8 g/dL (1.6-3.3); Non-African American GFR(CKD) 88.4 (60.0-200.0); Potassium 4.8 mmol/L (3.5-5.5); Total Bilirubin 0.2 mg/dL (0.30-1.20); Total Protein 7.5 g/dL (6.2-8.2)
[2021-06-25 12:14] LABS: Glucose,Whole Blood 230 mg/dL (75-99)
--- NOTE | 2021-06-25 16:30 | P.PN ---
Subjective Progress Note Date: 06/25/21 The patient is a 56-year-old female who is seen in neurologic follow- up on June 25, 2021, via teleneurology. The patient reports that her headache continues. When asked to further describe her symptom onset, the patient reports that her headache was sudden in onset. She says that she awoke with a headache. She felt as if her head was "in a vise" the patient denies a history of headaches. She denies associated nausea. She says it was mild photophobia and significant phonophobia. She describes a pressure sensation in her head. She denies new neck pain. The patient denies visual loss. Report a severe pressure sensation behind her left eye. The patient has intermittent pain in her eyes with eye movements. The patient reports tenderness to palpation in her left temporal artery area. She also reports a tender sensation in a band around her head at that level. The patient reports she feels as if her "cheeks are full of marbles" when she attempts to speak at times. Feels as if there is swelling in her face. She occasionally notices a mild increase in her pain, with movements of her jaw. The patient has not noted any improvement in her head pain with the steroids or with the spinal tap. Objective - Vital Signs Vital signs: Vital Signs Temp 97.9 F 06/25/21 05:00 Pulse 72 06/25/21 05:00 Resp 20 06/25/21 05:00 BP 131/79 06/25/21 05:00 Pulse Ox 95 06/25/21 05:00 Intake & Output 06/24/21 06/25/21 06/25/21 17:59 06:59 18:59 Intake Total Output Total Balance Intake: IV saline flush Output: Urine Other: Voiding Method Toilet # Voids - Exam Gen.: The patient is reclining in the bed. She is well-nourished, well- developed and in no acute distress. She is obese. HEENT: Head is atraumatic, normocephalic. Fundus not visualized. There is no scleral icterus. Mucous membranes are moist. There is tenderness to palpation of the left temporal artery region. Neck: Supple, without carotid bruits Neurological examination Mental status: The patient is awake, alert and oriented 3. Her speech is clear. There is no dysarthria or aphasia. Cranial nerves: 2-12 grossly intact Motor: The patient is able to move all 4 extremities without difficulty. - Labs CBC & Chem 7: 06/25/21 06:48 06/25/21 06:48 Labs: Abnormal Lab Results - Last 24 Hours (Table) 06/24/21 06/24/21 06/24/21 Range/Units 06:38 06:38 11:56 WBC 13.86 H (4.50-10.00) X 10*3/uL Immature Gran # 0.07 H (0.00-0.04) X 10*3/uL Neutrophils # 12.94 H (1.80-7.70) X 10*3/uL Lymphocytes # 0.58 L (0.90-5.00) X 10*3/uL Eosinophils # 0 L (0.04-0.35) X 10*3/uL BUN/Creatinine Ratio 21.89 H (12.00-20.00) Ratio Glucose 192 H (70-110) mg/dL POC Glucose (mg/dL) 301 H (75-99) mg/dL Globulin 3.9 H (1.6-3.3) g/dL Albumin/Globulin Ratio 1.00 L (1.60-3.17) g/dL 06/24/21 06/24/21 06/25/21 Range/Units 17:14 21:18 07:26 WBC (4.50-10.00) X 10*3/uL Immature Gran # (0.00-0.04) X 10*3/uL Neutrophils # (1.80-7.70) X 10*3/uL Lymphocytes # (0.90-5.00) X 10*3/uL Eosinophils # (0.04-0.35) X 10*3/uL BUN/Creatinine Ratio (12.00-20.00) Ratio Glucose (70-110) mg/dL POC Glucose (mg/dL) 218 H 246 H 204 H (75-99) mg/dL Globulin (1.6-3.3) g/dL Albumin/Globulin Ratio (1.60-3.17) g/dL Microbiology - Last 24 Hours (Table) 06/23/21 13:00 CSF Gram Stain - Preliminary Cerebral Spinal Fluid CSF Culture - Preliminary Assessment and Plan Assessment: 1. Uncontrolled cephalgia in a patient with signs and symptoms consistent with temporal arteritis as well as, pseudotumor cerebri. Lumbar puncture revealed an elevated opening pressure however the patient did not receive any relief with drainage of fluid. Sedimentation rate is elevated and steroids have been started for treatment of temporal arteritis however, the patient has not received any benefit in her headache pain with the steroids. Diagnosis remains unclear 2. 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 Insomnia per patient report-likely secondary to steroids Plan: 1. Continue current dose of steroids 2. Consult ophthalmology for dilated exam of the optic nerve. This will help to distinguish between pseudotumor cerebri and temporal arteritis 3. Consider sedative at bedtime to help her sleep, as steroids often cause insomnia 4. Agree with temporal artery biopsy 5. Dr. Gilbert Jimenes will assume neurologic coverage of this patient June 26 2021 Time with Patient: Less than 30 (Spent 25 minutes with patient via telemedicine)
[2021-06-25 17:44] LABS: Glucose,Whole Blood 268 mg/dL (75-99)
--- NOTE | 2021-06-25 19:10 | PN ---
PROGRESS NOTE DATE OF SERVICE: 06/25/2021 56-year-old woman who was admitted with bilateral headaches, left more than the right has possible temporal arteritis. Patient is slated for temporal artery biopsy. No chest pain. No palpitations. Brain MRI was reviewed, did not show any acute abnormality. Otherwise LAURA positive. PHYSICAL EXAMINATION: Pulse is 74. Blood pressure 130/88, respiration 18. Chest: Clear to auscultation. Cardiovascular: S1, S2. Abdomen: Soft. Nervous system: Examination of the temples reveals some mild tenderness in the left anabaptism area present. LABS: WBC 12.2. Other labs are reviewed. ASSESSMENT: 1. Bilateral headaches, left more than the right, possibly acute temporal arteritis. 2. High ESR. 3. History of autoimmune disorder. 4. History of mononeuritis multiplex. 5. LAURA positive. 6. Asthma. 7. Diabetes mellitus, type 2. 8. History of deep vein thrombosis. RECOMMENDATIONS AND DISCUSSION: I recommend to continue current management and symptomatic treatment. Otherwise continue with IV steroids, temporal artery biopsy. Prognosis guarded. The patient will require outpatient followup closely with Neurology and Rheumatology. Further recommendations to follow. MMODL / IJN: [id number] /
[2021-06-25 21:03] LABS: Glucose,Whole Blood 226 mg/dL (75-99)
[2021-06-25] MEDS: MONTELUKAST 10 MG TAB PO SCH (21:28)
[2021-06-25] MEDS: NORTRIPTYLINE 25 MG CAP PO SCH (21:29)
[2021-06-26] MEDS: methylPREDNISolone SOD SUCCI 125 MG/2 ML VIAL IV SCH ×2 (00:39→06:09)
[2021-06-26] MEDS: LEVOTHYROXINE 75 MCG TAB PO SCH (06:06)
[2021-06-26 07:55] LABS: Glucose,Whole Blood 179 mg/dL (75-99)
[2021-06-26] MEDS: HEPARIN SODIUM,PORCINE/PF 5,000 UNIT/0.5 ML SYRINGE SQ SCH ×2 (08:57→21:12)
[2021-06-26] MEDS: busPIRone HCl 5 MG TAB PO SCH ×2 (08:58→21:12)
[2021-06-26] MEDS: PANTOPRAZOLE 40 MG TABLET PO SCH (08:58)
[2021-06-26] MEDS: SERTRALINE 100 MG TAB PO SCH (08:58)
[2021-06-26] MEDS: GABAPENTIN 400 MG CAP PO SCH ×4 (08:58→22:43)
[2021-06-26] MEDS: ATORVASTATIN 40 MG TAB PO SCH (08:58)
[2021-06-26] MEDS: INSULIN ASPART (NovoLOG) 100 UNIT/ML VIAL SQ SCH ×4 (08:58→21:12)
[2021-06-26] MEDS ORDERED: acetaZOLAMIDE 250 MG TAB PO SCH ×2 (10:30)
--- NOTE | 2021-06-26 10:33 | P.PN ---
Subjective Progress Note Date: 06/26/21 She was seen and examined sitting up in bed. She states she is still having a severe headache. She describes it as pressure on bilateral temporal region greater on left than right. The patient underwent lumbar puncture with no improvement. She had been on IV steroids again with no improvement on her h eadache. tentative plan is for temporal artery biopsy this afternoon. Objective - Vital Signs Vital signs: Vital Signs Temp 98.0 F 06/26/21 04:53 Pulse 70 06/26/21 04:53 Resp 16 06/26/21 04:53 BP 121/76 06/26/21 04:53 Pulse Ox 94 L 06/26/21 04:53 Intake & Output 06/25/21 06/26/21 06/26/21 18:59 06:59 18:59 Intake Total 200 Balance 200 Intake: Oral 200 Other: Voiding Method Toilet Toilet # Voids 3 - Exam General appearance: The patient is alert, oriented, appears in no acute distress. HET: Head is normocephalic and atraumatic. Pupils are equal and reactive. Tenderness along the left temporal region. Palpable pulse. Neck: Supple without lymphadenopathy. Trachea midline. Heart: S1 S2. Regular rate and rhythm. Lungs: Clear to auscultation bilaterally. Abdomen: Soft, nontender, nondistended. Extremities: Normal skin color and turgor. No cyanosis, rash, ulceration, clubbing, or edema. Palpable radial pulse bilaterally. Neurological: No focal deficits. Alert and oriented 3. - Labs CBC & Chem 7: 06/25/21 06:48 06/25/21 06:48 Labs: Abnormal Lab Results - Last 24 Hours (Table) 06/25/21 06/25/21 06/25/21 Range/Units 06:48 06:48 12:13 WBC 12.12 H (4.50-10.00) X 10*3/uL RBC 4.08 L (4.10-5.20) X 10*6/uL MCHC 31.2 L (32.0-37.0) g/dL Immature Gran # 0.22 H (0.00-0.04) X 10*3/uL Neutrophils # 11.01 H (1.80-7.70) X 10*3/uL Lymphocytes # 0.65 L (0.90-5.00) X 10*3/uL Eosinophils # 0 L (0.04-0.35) X 10*3/uL Sodium 132 L (135-145) mmol/L Anion Gap 9.40 L (10.00-18.00) mmol/L BUN/Creatinine Ratio 24.35 H (12.00-20.00) Ratio Glucose 211 H (70-110) mg/dL POC Glucose (mg/dL) 230 H (75-99) mg/dL Total Bilirubin 0.20 L (0.30-1.20) mg/dL Albumin 3.7 L (3.8-4.9) g/dL Globulin 3.8 H (1.6-3.3) g/dL Albumin/Globulin Ratio 0.99 L (1.60-3.17) g/dL 06/25/21 06/25/21 06/26/21 Range/Units 17:43 21:01 07:54 WBC (4.50-10.00) X 10*3/uL RBC (4.10-5.20) X 10*6/uL MCHC (32.0-37.0) g/dL Immature Gran # (0.00-0.04) X 10*3/uL Neutrophils # (1.80-7.70) X 10*3/uL Lymphocytes # (0.90-5.00) X 10*3/uL Eosinophils # (0.04-0.35) X 10*3/uL Sodium (135-145) mmol/L Anion Gap (10.00-18.00) mmol/L BUN/Creatinine Ratio (12.00-20.00) Ratio Glucose (70-110) mg/dL POC Glucose (mg/dL) 268 H 226 H 179 H (75-99) mg/dL Total Bilirubin (0.30-1.20) mg/dL Albumin (3.8-4.9) g/dL Globulin (1.6-3.3) g/dL Albumin/Globulin Ratio (1.60-3.17) g/dL Microbiology - Last 24 Hours (Table) 06/23/21 13:00 CSF Gram Stain - Preliminary Cerebral Spinal Fluid CSF Culture - Preliminary Assessment and Plan Assessment: 1. Bilateral temporal headache 2. Elevated ESR 3. History of multifocal motor neuropathy on weekly IVIG Plan: 1. Plan for temporal artery biopsy this afternoon 2. Keep nothing by mouth 3. Continue with further recommendations from neurology Thank you for this consultation, we will continue to follow. The impression and plan of care has been dictated as directed. I performed a history and examination of this patient, discussed the same with the dictator. I agree with the dictator's note ,documented as a scribe. Any additional findings or plans will be noted.
--- NOTE | 2021-06-26 11:24 | P.PN ---
Subjective Progress Note Date: 06/26/21 I am seeing the patient for the first time during this hospital visit. Please refer to Dr. Abdalla's and Lesvia's note for further details. She continues to have headache and states it is located over the anterior left temporal region that fluctuates in severity but currently is about 8/10. Has mild photophobia and phonophobia. She denies of nausea or vomiting. She denies of visual disturbance, jaw cl audication, any new focal weakness or numbness. She was found hto have elevated opening pressure of 41cm water. Her MRI Brain w/ and w/o is unremarkable. ESR (66) is elevated but CRP is within normal limits. Her LAURA is positive and pending rest of immunological work-up. She has temporal artery biopsy pending scheduled for today. MRV done on 06/23/2021 is reported as strongly favor asymmetric prominent right sagittal and transverse sinus, thrombosed left sided venous structure unlikely but not excluded. Consider direct catheter angiogram to further evaluate. She is currently on Solumedrol 60mg IV every 6 hours. Objective - Vital Signs Vital signs: Vital Signs Temp 98.0 F 06/26/21 04:53 Pulse 70 06/26/21 04:53 Resp 16 06/26/21 04:53 BP 121/76 06/26/21 04:53 Pulse Ox 94 L 06/26/21 04:53 Intake & Output 06/25/21 06/26/21 06/26/21 18:59 06:59 18:59 Intake Total 200 Balance 200 Intake: Oral 200 Other: Voiding Method Toilet Toilet # Voids 3 - Exam GENERAL: The patient is lying in bed and is mild to moderate acute distress. NEUROLOGICAL: Higher mental function: The patient is awake, alert, oriented to self, place and time. Patient is following commands. No aphasia and no neglect. Cranial nerves: The pupils are round, equal and reactive to light. Visual sterling are full to confrontation throughout. Extraocular movement is intact no nystagmus is noted. Facial sensation is normal to touch throughout. The facial strength is normal throughout. Hearing is normal bilaterally to hand rub. Tongue is midline and moved [id number] without any difficulty. No dysarthria is noted. Shoulder shrug is normal bilaterally. Motor: The strength is 4+ over the left upper extremity (predominate weakness is distal). Otherwise strength 5 over 5 throughout. Atrophy over the left distal (hand. Old). Cerebellum: Normal finger to nos bilaterally. Sensation: Sensation is normal to touch throughout. - Labs CBC & Chem 7: 06/25/21 06:48 06/25/21 06:48 Labs: Abnormal Lab Results - Last 24 Hours (Table) 06/25/21 06/25/21 06/25/21 Range/Units 06:48 06:48 12:13 WBC 12.12 H (4.50-10.00) X 10*3/uL RBC 4.08 L (4.10-5.20) X 10*6/uL MCHC 31.2 L (32.0-37.0) g/dL Immature Gran # 0.22 H (0.00-0.04) X 10*3/uL Neutrophils # 11.01 H (1.80-7.70) X 10*3/uL Lymphocytes # 0.65 L (0.90-5.00) X 10*3/uL Eosinophils # 0 L (0.04-0.35) X 10*3/uL Sodium 132 L (135-145) mmol/L Anion Gap 9.40 L (10.00-18.00) mmol/L BUN/Creatinine Ratio 24.35 H (12.00-20.00) Ratio Glucose 211 H (70-110) mg/dL POC Glucose (mg/dL) 230 H (75-99) mg/dL Total Bilirubin 0.20 L (0.30-1.20) mg/dL Albumin 3.7 L (3.8-4.9) g/dL Globulin 3.8 H (1.6-3.3) g/dL Albumin/Globulin Ratio 0.99 L (1.60-3.17) g/dL 06/25/21 06/25/21 06/26/21 Range/Units 17:43 21:01 07:54 WBC (4.50-10.00) X 10*3/uL RBC (4.10-5.20) X 10*6/uL MCHC (32.0-37.0) g/dL Immature Gran # (0.00-0.04) X 10*3/uL Neutrophils # (1.80-7.70) X 10*3/uL Lymphocytes # (0.90-5.00) X 10*3/uL Eosinophils # (0.04-0.35) X 10*3/uL Sodium (135-145) mmol/L Anion Gap (10.00-18.00) mmol/L BUN/Creatinine Ratio (12.00-20.00) Ratio Glucose (70-110) mg/dL POC Glucose (mg/dL) 268 H 226 H 179 H (75-99) mg/dL Total Bilirubin (0.30-1.20) mg/dL Albumin (3.8-4.9) g/dL Globulin (1.6-3.3) g/dL Albumin/Globulin Ratio (1.60-3.17) g/dL Microbiology - Last 24 Hours (Table) 06/23/21 13:00 CSF Gram Stain - Preliminary Cerebral Spinal Fluid CSF Culture - Preliminary Assessment and Plan Assessment: 1. Uncontrolled cephalgia. Unclear etiology but seems patient has appears of pseudotumor cerebri (opening pressure of 41cm of water. MRI Brain is unremarkable. MRV thrombosis could not be rule out). ESR is elevated and having headache over left temporal region. Rule out temporal arteritis. 2. 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 Insomnia per patient report-likely secondary to steroids Plan: I started the patient on Topamax 50mg 1tab bid which helps with headache and alleviates with elevated opening pressure. Ordered CTV since MRV could not rule out thrombosis. If she does have thrombosis will start her on anticoagulation. She has pending biopsy of temporal artery. I stopped Solu-Medrol 60mg Q6 and will start the patient on Prednisone 60mg daily. Will defer sugar management to primary team. Ophthamology team is consulted and pending to be seen. She has positive LAURA and pending dsDNA, C-ANCA. Continue neuro checks. She is on Protonix for GI prophylaxis. For DVT prophylaxis: On subq heparin 5000U every 12 hours. The plan is discussed with the patient and primary team's Kevin Jimenes M.D. Neuro-Hospitalist Time with Patient: Less than 30
[2021-06-26 12:42] LABS: Glucose,Whole Blood 182 mg/dL (75-99)
[2021-06-26] MEDS ORDERED: LACTATED RINGERS 1,000 ML IV ONE ×2 (13:25→17:10)
[2021-06-26] MEDS ORDERED: DEXAMETHASONE SOD PHOSPHATE 4 MG/ML 1 ML VIAL IVP ONE (13:25)
[2021-06-26] MEDS ORDERED: ONDANSETRON 4 MG/2 ML VIAL IVP ONE (13:26)
[2021-06-26] MEDS ORDERED: ONDANSETRON 4 MG/2 ML VIAL ONE (13:32)
[2021-06-26] MEDS ORDERED: SODIUM CHLORIDE 0.9% 100 ML with ceFAZolin 2,000 MG IV ONE ×2 (14:11)
[2021-06-26] MEDS ORDERED: LIDOCAINE 1% INJ 10MG/ML (20 ML MDV) SQ ONE (14:30)
[2021-06-26] MEDS ORDERED: BACITRACIN ZINC 500 UNIT/GM OINT 28.4 GM TUBE TOPICAL ONE (14:38)
[2021-06-26 15:18] LABS: C-ANCA <1:20 Titer (<1:20)
--- NOTE | 2021-06-26 15:24 | P.OP ---
Date of Procedure: 06/26/21 Preoperative Diagnosis: Cephalgia, possible temporal arteritis Postoperative Diagnosis: Same Procedure(s) Performed: Left temporal artery biopsy Anesthesia: PARRIS Surgeon: Eric López Estimated Blood Loss (ml): 5 Pathology: other (left temporal artery) Condition: stable Disposition: PACU Indications for Procedure: 56 year old female with cephalgia worse on the left which she states is chronic. She had labs that demonstrated elevated ESR and therefore the medical team wanted a biopsy for diagnosis. She presents today for procedure. Description of Procedure: After written and informed consent was obtained and all risks, benefits and complications were discussed the patient was brought to the operative suite and laid in a supine position. The area of the left temporal region was prepped and draped in usual fashion. Antibiotics were given prior to incision and timeout was done in normal fashion. A small incision was created at the hairline above the ear with a 10 blade scalpel and dissection was carried down to the temporal artery with electrocautery. The branch of the temporal artery was located and dissected free. Approximately 2 cm of artery was dissected free, suture ligated and resected and sent off for pathology. The area was irrigated and hemostasis was assured. The incision was then closed in a multilayer fashion and skin was cleansed and glued. The patient tolerated the procedure well and sent to PACU for recovery.
[2021-06-26] MEDS ORDERED: HYDROmorphone 0.5 MG/0.5 ML SYRINGE IVP ONE ×2 (15:55→16:45)
[2021-06-26] MEDS: TOPIRAMATE 25 MG TAB PO SCH ×2 (17:39→21:14)
[2021-06-26 17:54] LABS: Glucose,Whole Blood 184 mg/dL (75-99)
--- NOTE | 2021-06-26 18:34 | CT ---
CT venogram of the brain. History venous thrombosis. Headache. Comparison none. TECHNIQUE: Images of the brain were obtained with IV contrast Isovue 100 mL. There are Three-D postprocessed aleyda ges. There is normal enhancement of the venous sinuses of the brain. No evidence of a filling defect. Ther e is normal contrast opacification of the anterior middle and posterior cerebral arteries. No mass ef fect. There is normal enhancement of the sagittal sinus the sigmoid and straight sinuses. The remaind er of the exam is unremarkable. IMPRESSION: Normal CT venogram of the brain. No evidence of sinus vein thrombosis.
[2021-06-26 20:31] LABS: Glucose,Whole Blood 288 mg/dL (75-99)
[2021-06-26] MEDS: HYDROmorphone 0.5 MG/0.5 ML SYRINGE IVP PRN (20:31)
[2021-06-26] MEDS: MONTELUKAST 10 MG TAB PO SCH (21:12)
[2021-06-26] MEDS: NORTRIPTYLINE 25 MG CAP PO SCH (21:13)
[2021-06-27] MEDS: LEVOTHYROXINE 75 MCG TAB PO SCH (05:43)
--- NOTE | 2021-06-27 06:32 | P.PN ---
Subjective Progress Note Date: 06/26/21 This is a pleasant 56-year-old female who was admitted with bilateral headache left more than right with possible temporal arteritis and being followed by neurology along with vascular surgery. Patient is planned for temporal artery biopsy on the left today and currently nothing by mouth. Patient was also maintained on IV steroids which we'll transition over to oral prednisone and per neurology CTV testing is ordered and pending at this time. Patient reports her headache being 10 out of 10 pain although denies any dizziness, lightheadedness, light sensitivity at this time. Patient denies chest pain or shortness of breath and patient is afebrile. Review of systems: Constitutional: No reports of fatigue, fever, or chills, reports 10/10 pain from headache Cardiovascular: No reports of chest pain or palpitations Respiratory: No reports of shortness of breath and cough GI: reports of nausea, no reports of of vomiting, no reports of diarrhea : No reports of dysuria or retention Neurovascular: no reports of generalized weakness All medications have been reviewed Active Medications Hydrocodone Bitart/Acetaminophen (Hydrocodone/Apap 10-325mg 1 Each Tab) 1 each PO Q6HR PRN PRN Reason: Pain Last Admin: 06/25/21 17:59 Dose: 1 each Documented by: Atorvastatin Calcium (Atorvastatin 40 Mg Tab) 40 mg PO DAILY [facility] Last Admin: 06/26/21 08:58 Dose: 40 mg Documented by: Buspirone HCl (Buspirone Hcl 5 Mg Tab) 5 mg PO BID [facility] Last Admin: 06/26/21 08:58 Dose: 5 mg Documented by: Gabapentin (Gabapentin 400 Mg Cap) 800 mg PO QID [facility] Last Admin: 06/26/21 08:58 Dose: 800 mg Documented by: Heparin Sodium (Porcine) (Heparin Sodium,Porcine/Pf 5,000 Unit/0.5 Ml Syringe) 5,000 unit SQ Q12HR [facility] Last Admin: 06/26/21 08:57 Dose: Not Given Documented by: Hydromorphone HCl (Hydromorphone 0.5 Mg/0.5 Ml Syringe) 0.5 mg IVP Q6HR PRN PRN Reason: Severe Pain Insulin Aspart (Insulin Aspart (Novolog) 100 Unit/Ml Vial) 0 unit SQ [facility]; Protocol Last Admin: 06/26/21 12:45 Dose: Not Given Documented by: Levothyroxine Sodium (Levothyroxine 75 Mcg Tab) 150 mcg PO DAILY@0630 [facility] Last Admin: 06/26/21 06:06 Dose: Not Given Documented by: Montelukast Sodium (Montelukast 10 Mg Tab) 10 mg PO [facility] Last Admin: 06/25/21 21:28 Dose: 10 mg Documented by: Naloxone HCl (Naloxone 0.4 Mg/Ml 1 Ml Vial) 0.2 mg IV Q2M PRN PRN Reason: Opioid Reversal Non-Formulary Medication (Dulaglutide [Trulicity]) 1.5 mg SQ [facility] Last Admin: 06/25/21 07:52 Dose: Not Given Documented by: Nortriptyline HCl (Nortriptyline 25 Mg Cap) 50 mg PO [facility] Last Admin: 06/25/21 21:29 Dose: 50 mg Documented by: Pantoprazole Sodium (Pantoprazole 40 Mg Tablet) 40 mg PO [facility] Last Admin: 06/26/21 08:58 Dose: 40 mg Documented by: Prednisone (Prednisone 20 Mg Tab) 60 mg PO DAILY [facility] Sertraline HCl (Sertraline 100 Mg Tab) 100 mg PO DAILY [facility] Last Admin: 06/26/21 08:58 Dose: 100 mg Documented by: Sodium Chloride (Sodium Chloride 0.9% Flush 10 Ml Syringe) 10 ml IV Q12HR [facility] Last Admin: 06/26/21 08:59 Dose: 10 ml Documented by: Sodium Chloride (Sodium Chloride 0.9% Flush 10 Ml Syringe) 10 ml IV DIRECTED PRN PRN Reason: FLUSH Topiramate (Topiramate 25 Mg Tab) 50 mg PO BID [facility] PHYSICAL EXAMINATION: GENERAL: The patient is alert and oriented x4, Well developed, well nourished. HEENT: Pupils are round and equally reacting to light. EOMI. does have scleral icterus. No conjunctival pallor. Normocephalic, atraumatic. No pharyngeal erythema. No thyromegaly. CARDIOVASCULAR: S1 and S2 muffled PULMONARY: diminished breath sounds bilaterally with no wheezing or rhonchi noted. ABDOMEN: soft. Nontender on exam. obese. non-distended, normoactive bowel sounds. No palpable organomegaly. MUSCULOSKELETAL: No joint swelling or deformity. EXTREMITIES: No cyanosis, clubbing, or pedal edema. Right hip surgical dressing is intact NEUROLOGICAL: Gross neurological examination did not reveal any focal deficits. Diffuse weakness SKIN: No rashes. 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 Neurology and vascular surgery following and plan is for temporal artery biopsy with vascular surgery this afternoon. Neurological work up in progress and CTV testing is ordered for today as well. Patient encouraged to increase activity as tolerated. Labs are pending. Patient currently NPO for testing but no reports of nausea or vomiting noted. Will discuss further with neurology and vascular about treatment plan moving forward. The impression and plan of care has been dictated by Naya Browne, nurse practitioner as directed. MD Kadi I have performed a history and examination and MDM of this patient, discussed the same with the dictator, and agree with the dictator's assessment and plan as written ,documented as a scribe. Based on total visit time, I have performed more than 50% of the visit. Objective - Vital Signs Vital signs: Vital Signs Temp 98.0 F 06/26/21 04:53 Pulse 70 06/26/21 04:53 Resp 16 06/26/21 04:53 BP 121/76 06/26/21 04:53 Pulse Ox 94 L 06/26/21 04:53 Intake & Output 06/25/21 06/26/21 06/26/21 18:59 06:59 18:59 Intake Total 200 Balance 200 Intake: Oral 200 Other: Voiding Method Toilet Toilet # Voids 3 - Labs CBC & Chem 7: 06/25/21 06:48 06/25/21 06:48 Labs: Abnormal Lab Results - Last 24 Hours (Table) 06/25/21 06/25/21 06/25/21 Range/Units 06:48 06:48 12:13 WBC 12.12 H (4.50-10.00) X 10*3/uL RBC 4.08 L (4.10-5.20) X 10*6/uL MCHC 31.2 L (32.0-37.0) g/dL Immature Gran # 0.22 H (0.00-0.04) X 10*3/uL Neutrophils # 11.01 H (1.80-7.70) X 10*3/uL Lymphocytes # 0.65 L (0.90-5.00) X 10*3/uL Eosinophils # 0 L (0.04-0.35) X 10*3/uL Sodium 132 L (135-145) mmol/L Anion Gap 9.40 L (10.00-18.00) mmol/L BUN/Creatinine Ratio 24.35 H (12.00-20.00) Ratio Glucose 211 H (70-110) mg/dL POC Glucose (mg/dL) 230 H (75-99) mg/dL Total Bilirubin 0.20 L (0.30-1.20) mg/dL Albumin 3.7 L (3.8-4.9) g/dL Globulin 3.8 H (1.6-3.3) g/dL Albumin/Globulin Ratio 0.99 L (1.60-3.17) g/dL 06/25/21 06/25/21 06/26/21 Range/Units 17:43 21:01 07:54 WBC (4.50-10.00) X 10*3/uL RBC (4.10-5.20) X 10*6/uL MCHC (32.0-37.0) g/dL Immature Gran # (0.00-0.04) X 10*3/uL Neutrophils # (1.80-7.70) X 10*3/uL Lymphocytes # (0.90-5.00) X 10*3/uL Eosinophils # (0.04-0.35) X 10*3/uL Sodium (135-145) mmol/L Anion Gap (10.00-18.00) mmol/L BUN/Creatinine Ratio (12.00-20.00) Ratio Glucose (70-110) mg/dL POC Glucose (mg/dL) 268 H 226 H 179 H (75-99) mg/dL Total Bilirubin (0.30-1.20) mg/dL Albumin (3.8-4.9) g/dL Globulin (1.6-3.3) g/dL Albumin/Globulin Ratio (1.60-3.17) g/dL Microbiology - Last 24 Hours (Table) 06/23/21 13:00 CSF Gram Stain - Preliminary Cerebral Spinal Fluid CSF Culture - Preliminary
[2021-06-27 07:19] LABS: Glucose,Whole Blood 132 mg/dL (75-99)
[2021-06-27] MEDS: busPIRone HCl 5 MG TAB PO SCH ×2 (08:36→20:53)
[2021-06-27] MEDS: predniSONE 20 MG TAB PO SCH (08:36)
[2021-06-27] MEDS: SERTRALINE 100 MG TAB PO SCH (08:36)
[2021-06-27] MEDS: HEPARIN SODIUM,PORCINE/PF 5,000 UNIT/0.5 ML SYRINGE SQ SCH ×2 (08:36→20:53)
[2021-06-27] MEDS: GABAPENTIN 400 MG CAP PO SCH ×4 (08:36→20:53)
[2021-06-27] MEDS: PANTOPRAZOLE 40 MG TABLET PO SCH (08:36)
[2021-06-27] MEDS: ATORVASTATIN 40 MG TAB PO SCH (08:36)
[2021-06-27] MEDS: INSULIN ASPART (NovoLOG) 100 UNIT/ML VIAL SQ SCH ×4 (08:36→20:53)
--- NOTE | 2021-06-27 08:50 | P.PN ---
Subjective Progress Note Date: 06/27/21 Patient seen and examined lying in bed. She is just waking up. States she did not sleep well she was very restless. States headache intensity has improved some. Yesterday she underwent left temporal artery biopsy. I states she's having some ringing in her ear and this thinks she may have bit her tongue yesterday as she has a lump on it. No visual changes. She is awaiting ophthalmology to see her. Objective - Vital Signs Vital signs: Vital Signs Temp 97.6 F 06/27/21 04:54 Pulse 69 06/27/21 04:54 Resp 18 06/27/21 04:54 BP 106/66 06/27/21 04:54 Pulse Ox 96 06/27/21 04:54 Intake & Output 06/26/21 06/27/21 06/27/21 18:59 06:59 18:59 Intake Total 1000 800 Output Total 5 Balance 995 800 Intake: IV 1000 Oral 800 Output: Estimated Blood Loss 5 Other: Voiding Method Toilet # Voids 2 3 - Exam General appearance: The patient is alert, oriented, appears in no acute distress. HET: Head is normocephalic and atraumatic. Pupils are equal and reactive. Left temporal incision well approximated, no drainage. Tenderness along the left temporal region. Palpable pulse. Neck: Supple without lymphadenopathy. Trachea midline. Heart: S1 S2. Regular rate and rhythm. Lungs: Clear to auscultation bilaterally. Abdomen: Soft, nontender, nondistended. Extremities: Normal skin color and turgor. No cyanosis, rash, ulceration, clubbing, or edema. Palpable radial pulse bilaterally. Neurological: No focal deficits. Alert and oriented 3. - Labs CBC & Chem 7: 06/25/21 06:48 06/25/21 06:48 Labs: Abnormal Lab Results - Last 24 Hours (Table) 06/26/21 06/26/21 06/26/21 Range/Units 12:40 17:53 20:20 POC Glucose (mg/dL) 182 H 184 H 288 H (75-99) mg/dL 06/27/21 Range/Units 07:08 POC Glucose (mg/dL) 132 H (75-99) mg/dL Microbiology - Last 24 Hours (Table) 06/23/21 13:00 CSF Gram Stain - Preliminary Cerebral Spinal Fluid CSF Culture - Preliminary Assessment and Plan Assessment: 1. Status post left temporal artery biopsy 2. Bilateral temporal headache unclear etiology 3. Elevated ESR 4. History of multifocal motor neuropathy on weekly IVIG Plan: 1. The patient is status post temporal artery biopsy, await biopsy results 2. Diet as tolerated 3. Continue prednisone as ordered per neurology 4. Continue with further recommendations from neurology Thank you for this consultation, we will sign off at this time. The impression and plan of care has been dictated as directed. Dr. Olsen I performed a history and examination of this patient, discussed the same with the dictator. I agree with the dictator's note ,documented as a scribe. Any additional findings or plans will be noted.
[2021-06-27] MEDS: TOPIRAMATE 25 MG TAB PO SCH ×2 (09:51→20:54)
[2021-06-27 12:04] LABS: Glucose,Whole Blood 217 mg/dL (75-99)
[2021-06-27] MEDS: HYDROmorphone 0.5 MG/0.5 ML SYRINGE IVP PRN ×2 (12:53→21:27)
[2021-06-27 12:54] LABS: IgG - CSF 5.5 mg/dL (0.0 - 3.4)
--- NOTE | 2021-06-27 14:00 | P.PN ---
Subjective Progress Note Date: 06/27/21 The patient is seen at bedside and feels about the same. Still having headaches and felt headaches improved with Dilaudid. Denies photophobia, phonophobia, nausea or vomiting. Patient had CT Venogram and was unremarkable and no thrombosis. Objective - Vital Signs Vital signs: Vital Signs Temp 98.1 F 06/27/21 11:32 Pulse 81 06/27/21 11:32 Resp 18 06/27/21 11:32 BP 103/70 06/27/21 11:32 Pulse Ox 93 L 06/27/21 11:32 Intake & Output 06/26/21 06/27/21 06/27/21 18:59 06:59 18:59 Intake Total 1000 800 Output Total 5 Balance 995 800 Intake: IV 1000 Oral 800 Output: Estimated Blood Loss 5 Other: Voiding Method Toilet # Voids 2 3 - Exam GENERAL: The patient is lying in bed and is mild to moderate acute distress. NEUROLOGICAL: Higher mental function: The patient is awake, alert, oriented to self, place and time. Patient is following commands. No aphasia and no neglect. Cranial nerves: The pupils are round, equal and reactive to light. Visual sterling are full to confrontation throughout. Extraocular movement is intact no nystagmus is noted. Facial sensation is normal to touch throughout. The facial strength is normal throughout. Hearing is normal bilaterally to hand rub. Tongue is midline and moved [id number] without any difficulty. No dysarthria is noted. Shoulder shrug is normal bilaterally. Motor: The strength is 4+ over the left upper extremity (predominate weakness is distal). Otherwise strength 5 over 5 throughout. Atrophy over the left distal (hand. Old). Cerebellum: Normal finger to nos bilaterally. Sensation: Sensation is normal to touch throughout. ADDITONAL WORK-UP: LAURA is positive. C-ANCA and P-ANCA is <1:20. RF <[address] Venogram and was unremarkable and no thrombosis. CSF is unremarkable. CSF clear, colorless, 1 nucleated cells, protein 42, glucose is 125. Oligoclonal band is negative - Labs CBC & Chem 7: 06/25/21 06:48 06/25/21 06:48 Labs: Abnormal Lab Results - Last 24 Hours (Table) 06/23/21 06/26/21 06/26/21 Range/Units 23:06 17:53 20:20 POC Glucose (mg/dL) 184 H 288 H (75-99) mg/dL CSF IgG (MS) 5.5 H (0.0 - 3.4) mg/dL Serum Albumin 3,430 L (3500 - 5200) mg/dL IgG 2,360 H (700 - 1600) mg/dL 06/27/21 06/27/21 Range/Units 07:08 12:03 POC Glucose (mg/dL) 132 H 217 H (75-99) mg/dL CSF IgG (MS) (0.0 - 3.4) mg/dL Serum Albumin (3500 - 5200) mg/dL IgG (700 - 1600) mg/dL Microbiology - Last 24 Hours (Table) 06/23/21 13:00 CSF Gram Stain - Preliminary Cerebral Spinal Fluid CSF Culture - Preliminary Assessment and Plan Assessment: 1. Uncontrolled cephalgia. Unclear etiology but seems patient has appears of pseudotumor cerebri (opening pressure of 41cm of water. MRI Brain is unremarkable. CTV is unremarkable and negative for thrombosis). ESR is elevated and having headache over left temporal region. Rule out temporal arteritis but seems atypical. 2. 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 Insomnia per patient report-likely secondary to steroids Plan: I will increase Topamax from 50mg to 75mg 1tab bid which helps with headache and alleviates with elevated opening pressure. The side-effects of Topamax was discussed with the patient. CTV of head is unremarkable for thrombosis and therefore no use of anticoagulation is needed from neurological stand point. She had biopsy of temporal artery on 06/26 and pending results. Continue Prednisone 60mg daily for now. Will defer sugar management to primary team. She was notified if temporal artery biopsy is negative to discontinue taking Prednisone. Recommend for her to follow-up with her neurologist FARZANEH (within 1-2 weeks and will defer modification of medication). Ophthamology team is consulted and pending to be seen. Likely to be seen by bren jack today. She has positive LAURA and pending dsDNA. Continue neuro checks. She is on Protonix for GI prophylaxis. For DVT prophylaxis: On subq heparin 5000U every 12 hours. Recommend patient to follow-up with her neurologist (over at [facility]) within 1-2 weeks. The plan is discussed with the patient and primary team's N.P. Gilbert Basha, M.D. Neuro-Hospitalist Time with Patient: Less than 30
[2021-06-27 15:19] LABS: Basophils % (A) 0 %; Eosinophils % (A) 0 %; HCT 46.2 % (34.0-46.0); HGB 14.3 gm/dL (11.4-16.0); Hypochromasia Slight; Lymphocytes # (A) 0.7 k/uL (1.0-4.8); Lymphocytes % (A) 6 %; MCH 31.2 pg (25.0-35.0); Monocytes # (A) 0.3 k/uL (0-1.0); Monocytes % (A) 3 %; Neutrophils # (A) 11.3 k/uL (1.3-7.7); Neutrophils % (A) 91 %; Platelet Count 283 k/uL (150-450); RBC 4.58 m/uL (3.80-5.40); RDW 13.3 % (11.5-15.5); WBC 12.5 k/uL (3.8-10.6)
--- NOTE | 2021-06-27 15:33 | P.PN ---
Subjective Progress Note Date: 06/27/21 This is a pleasant 56-year-old female who was admitted with bilateral headache left more than right with possible temporal arteritis and being followed by neurology along with vascular surgery. Patient is planned for temporal artery biopsy on the left today and currently nothing by mouth. Patient was also maintained on IV steroids which we'll transition over to oral prednisone and per neurology CTV testing is ordered and pending at this time. Patient reports her headache being 10 out of 10 pain although denies any dizziness, lightheadedness, light sensitivity at this time. Patient denies chest pain or shortness of breath and patient is afebrile. 06/27/2021 Patient is seen in follow-up this morning continues to have extreme headache rating it 10 out of 10 and continues with face pressure and eye pressure. Patient is status post temporal artery biopsy with vascular and patient will need follow-up with primary care provider to discuss results. Patient has also been transitioned to oral steroids per neurology and has also been cleared by neurology services once patient has been evaluated by ophthalmology and cleared for discharge. Patient also started on Topamax twice daily and will continue. Patient is using [place] for pain although reports that it is not helping and patient does have IV pain medications ordered although has not been using. Will add Toradol and monitor for pain relief. Vital signs of been stable and patient is afebrile. Patient tolerating diet with no reports of nausea or vomiting noted. Patient denies any chest pain or shortness of breath. Awaiting o phthalmology evaluation in the office was called and physician will be here after clinic hours. Review of systems: Constitutional: No reports of fatigue, fever, or chills, reports 10/10 pain from headache and pressure behind eyes Cardiovascular: No reports of chest pain or palpitations Respiratory: No reports of shortness of breath and cough GI: No reports of nausea, no reports of of vomiting, no reports of diarrhea : No reports of dysuria or retention Neurovascular: no reports of generalized weakness All medications have been reviewed Active Medications Hydrocodone Bitart/Acetaminophen (Hydrocodone/Apap 10-325mg 1 Each Tab) 1 each PO Q6HR PRN PRN Reason: Pain Last Admin: 06/25/21 17:59 Dose: 1 each Documented by: Atorvastatin Calcium (Atorvastatin 40 Mg Tab) 40 mg PO DAILY AYAN Last Admin: 06/27/21 08:36 Dose: 40 mg Documented by: Buspirone HCl (Buspirone Hcl 5 Mg Tab) 5 mg PO BID ON LICENSE OF [facility] Last Admin: 06/27/21 08:36 Dose: 5 mg Documented by: Gabapentin (Gabapentin 400 Mg Cap) 800 mg PO QID ON LICENSE OF [facility] Last Admin: 06/27/21 14:41 Dose: 800 mg Documented by: Heparin Sodium (Porcine) (Heparin Sodium,Porcine/Pf 5,000 Unit/0.5 Ml Syringe) 5,000 unit SQ Q12HR ON LICENSE OF [facility] Last Admin: 06/27/21 08:36 Dose: 5,000 unit Documented by: Hydromorphone HCl (Hydromorphone 0.5 Mg/0.5 Ml Syringe) 0.5 mg IVP Q6HR PRN PRN Reason: Severe Pain Last Admin: 06/27/21 12:53 Dose: 0.5 mg Documented by: Insulin Aspart (Insulin Aspart (Novolog) 100 Unit/Ml Vial) 0 unit SQ [facility]; Protocol Last Admin: 06/27/21 14:41 Dose: 6 unit Documented by: Ketorolac Tromethamine (Ketorolac 15 Mg/Ml 1 Ml Vial) 15 mg IVP Q6HR ON LICENSE OF [facility] Stop: 06/30/21 13:03 Levothyroxine Sodium (Levothyroxine 75 Mcg Tab) 150 mcg PO DAILY@0630 ON LICENSE OF [facility] Last Admin: 06/27/21 05:43 Dose: 150 mcg Documented by: Montelukast Sodium (Montelukast 10 Mg Tab) 10 mg PO [facility] Last Admin: 06/26/21 21:12 Dose: 10 mg Documented by: Naloxone HCl (Naloxone 0.4 Mg/Ml 1 Ml Vial) 0.2 mg IV Q2M PRN PRN Reason: Opioid Reversal Non-Formulary Medication (Dulaglutide [Trulicity]) 1.5 mg SQ BAUER ON LICENSE OF [facility] Last Admin: 06/25/21 07:52 Dose: Not Given Documented by: Nortriptyline HCl (Nortriptyline 25 Mg Cap) 50 mg PO [facility] Last Admin: 06/26/21 21:13 Dose: 50 mg Documented by: Pantoprazole Sodium (Pantoprazole 40 Mg Tablet) 40 mg PO AC-BRKFST ON LICENSE OF [facility] Last Admin: 06/27/21 08:36 Dose: 40 mg Documented by: Prednisone (Prednisone 20 Mg Tab) 60 mg PO DAILY ON LICENSE OF [facility] Last Admin: 06/27/21 08:36 Dose: 60 mg Documented by: Sertraline HCl (Sertraline 100 Mg Tab) 100 mg PO DAILY ON LICENSE OF [facility] Last Admin: 06/27/21 08:36 Dose: 100 mg Documented by: Sodium Chloride (Sodium Chloride 0.9% Flush 10 Ml Syringe) 10 ml IV Q12HR ON LICENSE OF [facility] Last Admin: 06/27/21 09:51 Dose: 10 ml Documented by: Sodium Chloride (Sodium Chloride 0.9% Flush 10 Ml Syringe) 10 ml IV DIRECTED PRN PRN Reason: FLUSH Topiramate (Topiramate 25 Mg Tab) 50 mg PO BID ON LICENSE OF [facility] Last Admin: 06/27/21 09:51 Dose: 50 mg Documented by: PHYSICAL EXAMINATION: GENERAL: The patient is alert and oriented x4, Well developed, well nourished. HEENT: Pupils are round and equally reacting to light. EOMI. does have scleral icterus. No conjunctival pallor. Normocephalic, atraumatic. No pharyngeal erythema. No thyromegaly. CARDIOVASCULAR: S1 and S2 muffled PULMONARY: diminished breath sounds bilaterally with no wheezing or rhonchi noted. ABDOMEN: soft. Nontender on exam. obese. non-distended, normoactive bowel sounds. No palpable organomegaly. MUSCULOSKELETAL: No joint swelling or deformity. EXTREMITIES: No cyanosis, clubbing, or pedal edema. NEUROLOGICAL: Gross neurological examination did not reveal any focal deficits. SKIN: No rashes. Assessment: Bilateral headaches, left more than right, possibly acute temporal arteritis Status post left temporal artery biopsy Elevated ESR History of autoimmune disorder History of mononeuritis multiplex LAURA positive Asthma, not in acute exacerbation Diabetes mellitus type 2 history of deep vein thrombosis GI prophylaxis DVT prophylaxis Full code Plan: Recommend to continue with current medications and symptomatic management. Neurology and vascular surgery following and patient is status post left temporal artery biopsy with vascular surgery yesterday. Patient will need to follow-up with primary care provider for test results. Neurology following and CTV was negative. Patient continues on oral prednisone 60 mg daily. Patient also started on Topamax. Patient continues to report 10/10 on the pain scale for her headache. Patient encouraged to increase activity as tolerated. Ophthalmology consulted and pending and patient will be evaluated today. Will discuss further with neurology and vascular about treatment plan moving forward. Possible discharge in 24 hours. The impression and plan of care has been dictated by Naya Browne nurse pract kyleionerosa maria as directed. MD Otoniel I have performed a history and examination and MDM of this patient, discussed the same with the dictator, and agree with the dictator's assessment and plan as written ,documented as a scribe. Based on total visit time, I have performed more than 50% of the visit. Objective - Vital Signs Vital signs: Vital Signs Temp 97.6 F 06/27/21 04:54 Pulse 69 06/27/21 04:54 Resp 18 06/27/21 04:54 BP 106/66 06/27/21 04:54 Pulse Ox 96 06/27/21 04:54 Intake & Output 06/26/21 06/27/21 06/27/21 18:59 06:59 18:59 Intake Total 1000 800 Output Total 5 Balance 995 800 Intake: IV 1000 Oral 800 Output: Estimated Blood Loss 5 Other: Voiding Method Toilet # Voids 2 3 - Labs CBC & Chem 7: 06/27/21 14:27 06/25/21 06:48 Labs: Abnormal Lab Results - Last 24 Hours (Table) 06/26/21 06/26/21 06/26/21 Range/Units 12:40 17:53 20:20 POC Glucose (mg/dL) 182 H 184 H 288 H (75-99) mg/dL 06/27/21 Range/Units 07:08 POC Glucose (mg/dL) 132 H (75-99) mg/dL Microbiology - Last 24 Hours (Table) 06/23/21 13:00 CSF Gram Stain - Preliminary Cerebral Spinal Fluid CSF Culture - Preliminary
[2021-06-27 15:43] LABS: African American GFR (CKD) 66 (>60 ml/min/1.73 sqM); Anion Gap 10 mmol/L; Blood Urea Nitrogen 22 mg/dL (7-17); Calcium 8.8 mg/dL (8.4-10.2); Carbon Dioxide 22 mmol/L (22-30); Chloride 100 mmol/L (98-107); Glucose 341 mg/dL (74-99); Magnesium 2.1 mg/dL (1.6-2.3); Non-African American GFR(CKD) 57 (>60 ml/min/1.73 sqM); Potassium 4.8 mmol/L (3.5-5.1); Sodium 132 mmol/L (137-145)
[2021-06-27 17:27] LABS: Glucose,Whole Blood 241 mg/dL (75-99)
[2021-06-27 17:39] LABS: DNA Double-Stranded Indetermin (NEGATIVE)
[2021-06-27] MEDS: KETOROLAC 15 MG/ML 1 ML VIAL IVP SCH ×2 (17:59→23:40)
[2021-06-27 20:36] LABS: Glucose,Whole Blood 216 mg/dL (75-99)
[2021-06-27] MEDS: NORTRIPTYLINE 25 MG CAP PO SCH (20:53)
[2021-06-27] MEDS: MONTELUKAST 10 MG TAB PO SCH (20:54)
[2021-06-28] MEDS: HYDROmorphone 0.5 MG/0.5 ML SYRINGE IVP PRN (03:20)
[2021-06-28 05:13] VITALS: RESP 18
[2021-06-28] MEDS: KETOROLAC 15 MG/ML 1 ML VIAL IVP SCH ×2 (05:28→11:28)
[2021-06-28] MEDS: LEVOTHYROXINE 75 MCG TAB PO SCH (05:28)
[2021-06-28 07:01] LABS: Glucose,Whole Blood 101 mg/dL (75-99)
[2021-06-28] MEDS: INSULIN ASPART (NovoLOG) 100 UNIT/ML VIAL SQ SCH ×2 (08:54→13:03)
[2021-06-28] MEDS: busPIRone HCl 5 MG TAB PO SCH (09:06)
[2021-06-28] MEDS: ATORVASTATIN 40 MG TAB PO SCH (09:06)
[2021-06-28] MEDS: predniSONE 20 MG TAB PO SCH (09:06)
[2021-06-28] MEDS: GABAPENTIN 400 MG CAP PO SCH ×2 (09:06→11:29)
[2021-06-28] MEDS: TOPIRAMATE 25 MG TAB PO SCH (09:06)
[2021-06-28] MEDS: PANTOPRAZOLE 40 MG TABLET PO SCH (09:07)
[2021-06-28] MEDS: HEPARIN SODIUM,PORCINE/PF 5,000 UNIT/0.5 ML SYRINGE SQ SCH (09:07)
[2021-06-28] MEDS: SERTRALINE 100 MG TAB PO SCH (09:07)
--- NOTE | 2021-06-28 09:14 | CONS ---
CONSULTATION OPHTHALMOLOGY CONSULTATION: CHIEF COMPLAINT: Headache. HISTORY OF PRESENT ILLNESS: Ms. Hyde is a 56-year-old female who presented with worsening headache for the last 10 days. The headache involves the bitemporal region and has increased in intensity and pain. This has been aching in nature and mostly constant. There are no alleviating factors. There are no visual changes that occur along with the headaches. The patient denies jaw claudication, flashes, floaters, visual field loss. REVIEW OF SYSTEMS: The patient denies vision loss, nausea, vomiting, joint pains, fever. The patient does note left hand weakness. PAST MEDICAL HISTORY: Significant for asthma, type 2 diabetes mellitus, deep vein thrombosis, gastroesophageal reflux disease, hyperlipidemia, sleep apnea, multifocal motor neuropathy. PAST SURGICAL HISTORY: section, orthopedic surgery, tubal ligation. OPHTHALMIC HISTORY: No previous ophthalmic surgery or history. SOCIAL HISTORY: Everyday smoker and occasional alcohol use. FAMILY HISTORY: Peripheral vascular disease. MEDICATIONS: BuSpar, Neurontin, Zoloft, Prilosec, Lipitor, Xolair, Trulicity. ALLERGIES: CLINDAMYCIN, AMOXICILLIN. OPHTHALMIC EXAMINATION: Visual acuity is 20/40 in the right eye and 20/30 in the left eye at near with correction. Extraocular movements are full. There is no afferent pupillary defect. Intraocular pressure is within normal limits. The conjunctivae and sclerae are within normal limits. The anterior chamber and iris are within normal limits. There is trace nuclear sclerotic cataract in both eyes. The posterior exam is within normal limits. The optic nerve is sharp bilaterally with no disk edema. The remainder of the posterior exam, including the retinal exam, is within normal limits. ASSESSMENT AND PLAN: 1. Headache. The ophthalmic examination does not reveal any pathology. There are no signs of disk edema in either eye. The optic nerve is sharp and within normal limits in both eyes. Extraocular movements are full and pupils are normal. There is no diabetic retinopathy noted. There are no signs of glaucoma on exam. The patient does have autoimmune disease history and neurologic history, and the headaches are likely related to a neurologic source rather than any ophthalmic disease. I explained the findings to the patient and stressed the importance of continued followup and evaluation to further decipher the root cause of the headaches. Ruling out any process that involves active disk edema is helpful. The symptoms are not typical of temporal arteritis and the C-reactive protein is within normal limits. However, it will be helpful to obtain the results of a temporal artery biopsy. I recommend continued evaluation with the appropriate specialists. 2. Type 2 diabetes mellitus with no ophthalmic pathology. There are no signs of diabetic retinopathy in either eye. I stressed the importance of continued blood sugar control. Thank you for allowing me to participate in this patient's care. I am happy to see the patient further if any other issues arise. Sincerely, Dora Mcfarlane M.D. ASIM / BOLIVAR: [id number] /
[2021-06-28] MEDS: HYDROcodone/APAP 10-325MG 1 EACH TAB PO PRN (09:19)
[2021-06-28 11:40] LABS: Glucose,Whole Blood 241 mg/dL (75-99)
[2021-06-28 11:55] VITALS: BP 111/72; PULSE 75; TEMP 97.4
--- NOTE | 2021-06-28 13:40 | P.PN ---
Subjective Progress Note Date: 06/28/21 The patient is seen at bedside and feels her headache are improved especially with Dilaudid. Was a ballet by ophthalmology team yesterday and the did not feel it revealed any Pathology from an hat cone inspector perspective. There is no edema in either eye. The optic nerve is sharp and within normal limits in both eyes. There is no signs of glaucoma on exam. Difficult headache are likely from a neurological source read the an hat cone inspector cold disease. He also did not feel this was typical for temporal arteritis and that C reactive protein is within normal limits. Objective - Vital Signs Vital signs: Vital Signs Temp 97.4 F L 06/28/21 11:32 Pulse 75 06/28/21 11:32 Resp 18 06/28/21 11:32 BP 111/72 06/28/21 11:32 Pulse Ox 95 06/28/21 11:32 Intake & Output 06/27/21 06/28/21 06/28/21 18:59 06:59 18:59 Intake Total 620 600 Balance 620 600 Intake: IV 20 saline flush 20 Oral 600 600 Other: Voiding Method Toilet Toilet # Voids 3 3 - Labs CBC & Chem 7: 06/27/21 14:27 06/27/21 14:27 Labs: Abnormal Lab Results - Last 24 Hours (Table) 06/24/21 06/27/21 06/27/21 Range/Units 06:38 14:27 14:27 WBC 12.5 H (3.8-10.6) k/uL Hct 46.2 H (34.0-46.0) % MCV 101.0 H (80.0-100.0) fL Neutrophils # 11.3 H (1.3-7.7) k/uL Lymphocytes # 0.7 L (1.0-4.8) k/uL ESR (0-20) mm/hr Sodium 132 L (137-145) mmol/L BUN 22 H (7-17) mg/dL Creatinine 1.10 H (0.52-1.04) mg/dL Glucose 341 H (74-99) mg/dL POC Glucose (mg/dL) (75-99) mg/dL Double Strand DNA Ab Indetermin A (NEGATIVE) 06/27/21 06/27/21 06/27/21 Range/Units 14:27 17:25 20:34 WBC (3.8-10.6) k/uL Hct (34.0-46.0) % MCV (80.0-100.0) fL Neutrophils # (1.3-7.7) k/uL Lymphocytes # (1.0-4.8) k/uL ESR 34 H (0-20) mm/hr Sodium (137-145) mmol/L BUN (7-17) mg/dL Creatinine (0.52-1.04) mg/dL Glucose (74-99) mg/dL POC Glucose (mg/dL) 241 H 216 H (75-99) mg/dL Double Strand DNA Ab (NEGATIVE) 06/28/21 06/28/21 Range/Units 06:59 11:34 WBC (3.8-10.6) k/uL Hct (34.0-46.0) % MCV (80.0-100.0) fL Neutrophils # (1.3-7.7) k/uL Lymphocytes # (1.0-4.8) k/uL ESR (0-20) mm/hr Sodium (137-145) mmol/L BUN (7-17) mg/dL Creatinine (0.52-1.04) mg/dL Glucose (74-99) mg/dL POC Glucose (mg/dL) 101 H 241 H (75-99) mg/dL Double Strand DNA Ab (NEGATIVE) Microbiology - Last 24 Hours (Table) 06/23/21 13:00 CSF Gram Stain - Final Cerebral Spinal Fluid CSF Culture - Final Assessment and Plan Assessment: 1. Uncontrolled cephalgia. Unclear etiology but seems patient has appears of pseudotumor cerebri (opening pressure of 41cm of water. MRI Brain is unremarkable. CTV is unremarkable and negative for thrombosis). ESR is elevated and having headache over left temporal region. Rule out temporal arteritis but seems very atypical (which Ophthalmology team feels the same way). 2. 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 Insomnia per patient report-likely secondary to steroids Plan: Continue Topamax 75mg 1tab bid which helps with headache and alleviates with elevated opening pressure. The side-effects of Topamax was discussed with the patient. CTV of head is unremarkable for thrombosis and therefore no use of anticoagulation is needed from neurological stand point. She had biopsy of temporal artery on 06/26 and pending results. She is currently on Prednisone 60mg daily for now for ?temporal arteritis which seems very atypical and I feel unlikely and the Ophthamology team feels the same way. Will instead discharge on tapering steroid dose. .She was notified if temporal artery biopsy is negative to discontinue taking Prednisone. Recommend for her to follow-up with her neurologist FARZANEH (within 1-2 weeks and will defer modification of medication). She has positive LAURA and dsDNA is indeterminate. Recommend possibly repeating as outpatient. Continue neuro checks. She is on Protonix for GI prophylaxis. For DVT prophylaxis: On subq heparin 5000U every 12 hours. Recommend patient to follow-up with her neurologist (over at [facility]) within 1-2 weeks. The plan is discussed with the patient and primary team's N.P. There is no further neurological work-up. Patient is clear from neurological perspective. Gilbert Jimenes M.D. Neuro-Hospitalist Time with Patient: Less than 30
--- NOTE | 2021-06-29 01:00 | P.DS ---
Providers Date of admission: 06/26/21 12:19 Expected date of discharge: 06/28/21 Attending physician: Beatrice Dc Consults: 06/22/21 15:49 Consult Physician Routine Consulting Provider: Heydi Abdalla Consult Reason/Comments: headache, elevated ESR Do you want consulting provider notified?: Yes 06/23/21 15:10 Consult to Anesthesia Stat Consulting Provider: Anesthesia,Services Consult Reason/Comments: Probabl Pseudotumor cerebri, plz check opening pressure, drain 20 cc if hig 06/25/21 11:22 Consult Physician Urgent Consulting Provider: Dora Mcfarlane Consult Reason/Comments: possible nerve edema Do you want consulting provider notified?: Yes Primary care physician: Ana Rodríguez Hospital Course: Final diagnosis Bilateral headaches, left more than right, possibly acute temporal arteritis Status post left temporal artery biopsy Elevated ESR History of autoimmune disorder History of mononeuritis multiplex LAURA positive Asthma, not in acute exacerbation Diabetes mellitus type 2 history of deep vein thrombosis GI prophylaxis DVT prophylaxis Full code Discharge disposition Patient is being discharged in a stable condition with guarded prognosis to home. Patient will follow-up with Dr. Rodríguez in the outpatient setting upon discharge. Patient is to also follow up with her neurologist out of [facility]. Patient to continue prednisone taper on discharge. Total time taken is greater than 35 minutes. Hospital Course This is a 56-year-old female who was recently admitted with headache and severe pain and was closely monitored. Neurology and opthalmology evaluated the patient as well and will need to follow up with her neurologist this week for results and close monitoring. Patient to continue a prednisone taper on discharge. Temporal artery biopsy pending and to follow with pcp for results. Currently no reports of chest pain, shortness of breath, or palpitations. Patient is afebrile. No reports of nausea or vomiting and patient is tolerating diet. Patient will be discharged today. PHYSICAL EXAMINATION: GENERAL: The patient is alert and oriented x4, Well developed, well nourished. HEENT: Pupils are round and equally reacting to light. EOMI. no scleral icterus. No conjunctival pallor. Normocephalic, atraumatic. No pharyngeal erythema. No thyromegaly. CARDIOVASCULAR: S1 and S2 muffled PULMONARY: diminished breath sounds bilaterally with no wheezing or rhonchi noted. ABDOMEN: soft. Nontender on exam. obese. non-distended, normoactive bowel sounds. No palpable organomegaly. MUSCULOSKELETAL: No joint swelling or deformity. EXTREMITIES: No cyanosis, clubbing, or pedal edema. NEUROLOGICAL: Gross neurological examination did not reveal any focal deficits. SKIN: No rashes. Please refer to medication reconciliation sheet for a list of medications. The impression and plan of care has been dictated by Naya Browne, nurse practitioner as directed. MD Otoniel I have performed a history and examination and MDM of this patient, discussed the same with the dictator, and agree with the dictator's assessment and plan as written ,documented as a scribe. Based on total visit time, I have performed more than 50% of the visit. Patient Condition at Discharge: Fair Plan - Discharge Summary New Discharge Prescriptions: New predniSONE 10 mg PO DIRECTED #30 tab Topiramate [Topamax] 75 mg PO BID 30 Days #180 tab Ketorolac [Toradol] 10 mg PO Q6HR #10 tab HYDROcodone/APAP 10-325MG [[place] 10-325] 1 each PO Q6HR PRN #12 tab PRN Reason: Pain Pantoprazole [Protonix] 40 mg PO AC-BRKFST 30 Days #30 tab Continue Sertraline [Zoloft] 100 mg PO DAILY Gabapentin [Neurontin] 800 mg PO QID Nortriptyline [Pamelor] 50 mg PO HS Omeprazole [PriLOSEC] 40 mg PO DAILY Gammagard Ivig 45 gram IV. TH Levothyroxine Sodium 150 mcg PO DAILY busPIRone HCl [Buspar] 5 mg PO BID Atorvastatin [Lipitor] 40 mg PO DAILY Montelukast [Singulair] 10 mg PO HS Dulaglutide [Trulicity] 1.5 mg SQ BAUER Xolair 225mg 225 mg SQ Q14D Discharge Medication List Gabapentin [Neurontin] 800 mg PO QID 03/23/15 [History] Sertraline [Zoloft] 100 mg PO DAILY 03/23/15 [History] Gammagard Ivig 45 gram IV. TH 12/11/18 [History] Nortriptyline [Pamelor] 50 mg PO HS 12/11/18 [History] Omeprazole [PriLOSEC] 40 mg PO DAILY 12/11/18 [History] Levothyroxine Sodium 150 mcg PO DAILY 07/29/20 [History] Atorvastatin [Lipitor] 40 mg PO DAILY 06/22/21 [History] Dulaglutide [Trulicity] 1.5 mg SQ BAUER 06/22/21 [History] Montelukast [Singulair] 10 mg PO HS 06/22/21 [History] Xolair 225mg 225 mg SQ Q14D 06/22/21 [History] busPIRone HCl [Buspar] 5 mg PO BID 06/22/21 [History] HYDROcodone/APAP 10-325MG [[place] 10-325] 1 each PO Q6HR PRN #12 tab 06/28/21 [Rx] Ketorolac [Toradol] 10 mg PO Q6HR #10 tab 06/28/21 [Rx] Pantoprazole [Protonix] 40 mg PO AC-BRKFST 30 Days #30 tab 06/28/21 [Rx] Topiramate [Topamax] 75 mg PO BID 30 Days #180 tab 06/28/21 [Rx] predniSONE 10 mg PO DIRECTED #30 tab 06/28/21 [Rx] Follow up Appointment(s)/Referral(s): Ana Rodríguez MD [Primary Care Provider] - 1-2 days (Patient is going to make follow up appointment.) Patient Instructions/Handouts: Hydrocodone/Acetaminophen (By mouth), Prednisone (By mouth), Ketorolac (By mouth), Topiramate (By mouth), Pantoprazole (By mouth), Temporal Arteritis (DC) Activity/Diet/Wound Care/Special Instructions: Patient is to follow-up with primary care provider on discharge Follow-up with her neurologist in the next week Follow-up with auto body painter Continue taking medications as prescribed Activity Limited until follow-up Continue current diet Discharge Disposition: HOME SELF-CARE
[2021-06-29] MEDS ORDERED: IMMUNE GLOBULIN IV. SCH (12:41)
== END 2021-06-28 15:52 | disposition home or self-care (01) | DRG 517 ==
LOC: EC 14:33 → 6NMEDSUR 15:50 → 5NMEDONC 22:38 → OBSVTOIN 06-26 12:19
PROVIDERS: ADMIT Hospitalist; ATTEND Hospitalist
PROC: 009U3ZX Drainage of Spinal Canal, Percutaneous Approach, Diagnostic (ICD-10-PCS; 2021-06-23)
PROC: 03BT0ZX Excision of Left Temporal Artery, Open Approach, Diagnostic (ICD-10-PCS; principal; 2021-06-26 07:30)
DX: M31.6 Other giant cell arteritis (principal); G93.2 Benign intracranial hypertension; E11.40 Type 2 diabetes mellitus with diabetic neuropathy, unspecified; E66.9 Obesity, unspecified; E78.5 Hyperlipidemia, unspecified; E87.6 Hypokalemia; F17.210 Nicotine dependence, cigarettes, uncomplicated; G43.909 Migraine, unspecified, not intractable, without status migrainosus; F32.A Depression, unspecified; G47.00 Insomnia, unspecified; G58.7 Mononeuritis multiplex; R70.0 Elevated erythrocyte sedimentation rate; F41.9 Anxiety disorder, unspecified; G61.82 Multifocal motor neuropathy; H54.7 Unspecified visual loss; H93.19 Tinnitus, unspecified ear; J45.909 Unspecified asthma, uncomplicated; T38.0X5A Adverse effect of glucocorticoids and synthetic analogues, initial encounter; R76.8 Other specified abnormal immunological findings in serum; E07.89 Other specified disorders of thyroid; Z68.38 Body mass index [BMI] 38.0-38.9, adult; Z79.890 Hormone replacement therapy; Z79.899 Other long term (current) drug therapy; Z82.49 Family history of ischemic heart disease and other diseases of the circulatory system; Z86.718 Personal history of other venous thrombosis and embolism; Z98.890 Other specified postprocedural states; Z98.51 Tubal ligation status; Z88.0 Allergy status to penicillin; Z91.048 Other nonmedicinal substance allergy status
CPT/HCPCS: 36415; 62270; 70496; 70544; 70553; 80048; 80053; 81025; 82040; 82042; 82784; 82945; 83735; 83916; 84157; 85025; 85652; 86038; 86039; 86140; 86225; 86255; 86431; 87070; 87205; 87252; 87496; 87498; 87529; 87798; 88305; 89050; 96374; 99285

== ENCOUNTER → 2021-07-04 | Outpatient (CLI) | payer BC ==
[2021-07-04 17:42] LABS: Basophils % (A) 0 %; Eosinophils % (A) 0 %; HCT 43.4 % (34.0-46.0); Lymphocytes % (A) 6 %; MCH 31.5 pg (25.0-35.0); MCHC 32.3 g/dL (31.0-37.0); MCV 97.5 fL (80.0-100.0); Mean Platelet Volume 8.1; Monocytes # (A) 0.6 k/uL (0-1.0); Monocytes % (A) 4 %; Neutrophils # (A) 14.1 k/uL (1.3-7.7); Neutrophils % (A) 89 %; Platelet Count 271 k/uL (150-450); RBC 4.45 m/uL (3.80-5.40); RDW 12.9 % (11.5-15.5); WBC 15.9 k/uL (3.8-10.6)
[2021-07-04 17:58] LABS: ALT 20 U/L (4-34); AST 17 U/L (14-36); African American GFR (CKD) >90 (>60 ml/min/1.73 sqM); Albumin 3.9 g/dL (3.5-5.0); Albumin/Globulin Ratio 0.8; Alkaline Phosphatase 83 U/L (38-126); Anion Gap 7 mmol/L; Bilirubin,Unconjugated 0.4 mg/dL (0.0-1.1); Blood Urea Nitrogen 23 mg/dL (7-17); Calcium 9.3 mg/dL (8.4-10.2); Carbon Dioxide 28 mmol/L (22-30); Chloride 101 mmol/L (98-107); Globulin 4.6 g/dL; Glucose 198 mg/dL (74-99); Non-African American GFR(CKD) 81 (>60 ml/min/1.73 sqM); Potassium 4.6 mmol/L (3.5-5.1); Sodium 136 mmol/L (137-145); Total Bilirubin 0.5 mg/dL (0.2-1.3); Total Protein 8.5 g/dL (6.3-8.2)
== END | disposition home or self-care (01) ==
LOC: LABWHC1 16:33
PROVIDERS: ATTEND Psychiatry & Neurology Vascular Neurology
DX: G43.011 Migraine without aura, intractable, with status migrainosus (principal)
CPT/HCPCS: 36415; 80048; 80076; 81025; 85025

== ENCOUNTER → 2022-01-23 | Outpatient (CLI) | payer BC ==
[2022-01-23 19:28] LABS: ALT 19 U/L (8-44); AST 25 U/L (13-35); African American GFR (CKD) 83.3 (60.0-200.0); Albumin 3.9 g/dL (3.8-4.9); Albumin/Globulin Ratio 0.81 (1.60-3.17); Alkaline Phosphatase 96 U/L (41-126); Blood Urea Nitrogen 12.5 mg/dL (9.0-27.0); Calcium 9.6 mg/dL (8.7-10.3); Carbon Dioxide 23.8 mmol/L (20.0-27.5); Chloride 103 mmol/L (96-109); Chol/HDL Ratio 6.46 Ratio; Globulin 4.8 g/dL (1.6-3.3); Glucose 87 mg/dL (70-110); LDL Cholesterol,Calculated 218.9 mg/dL (0.0-131.0); Non-African American GFR(CKD) 71.9 (60.0-200.0); Sodium 138 mmol/L (135-145); Total Protein 8.7 g/dL (6.2-8.2)
[2022-01-23 23:16] LABS: Urine Creatinine 80.5 mg/dL (28.0-217.0)
== END | disposition home or self-care (01) ==
LOC: LABWHC1 11:44
PROVIDERS: ATTEND Internal Medicine Endocrinology, Diabetes & Metabolism
DX: E11.65 Type 2 diabetes mellitus with hyperglycemia (principal)
CPT/HCPCS: 36415; 80053; 80061; 82043; 82570; 83036; 84443